=== PATIENT | female | born 1940 | race Caucasian/White ===

== ENCOUNTER 2023-11-14 06:26 | Inpatient (IN) | payer MEDICARE, SELFPAY ==
[2023-11-14] VITALS (19 sets, daily range): BP systolic 75–155; BP diastolic 50–98; PULSE 73; O2SAT 99; BMI 30.2; BMI 29.2
[2023-11-14 02:14] LABS: % Basophils 0.5 % (0-2); % Eosinophils 2.1 % (0-6); % Immature Granulocytes 0.4 % (0-0.5); % Lymphocytes 8.1 % (20.5-51.1); % Monocytes 10.2 % (1.7-9.3); % Neutrophils 78.7 % (42.2-75.2); Absolute Basophils 0.1 10^3/uL (0-0.2); Absolute Eosinophils 0.2 10^3/uL (0-0.7); Absolute Lymphocytes 0.8 10^3/uL (1.2-3.4); Absolute Neutrophils 7.8 10^3/uL (1.4-6.5); Hematocrit 36.2 % (37.0-47.0); Hemoglobin 11.5 g/dL (12.0-16.0); Mean Corp Hgb Conc. 31.8 g/dL (33.0-37.0); Mean Corpuscular Hgb 31.6 pg (27.0-31.0); Mean Corpuscular Volume 99.5 fL (81.0-99.0); Mean Platelet Volume 9.6 fL (7.4-10.4); Nucleated Red Blood Cells % 0 %; Platelet Count 274 10^3/uL (130-400); Red Blood Cell Count 3.64 10^6/uL (4.20-5.40); Red Cell Dist. Width 15.9 % (11.5-14.5)
--- NOTE | 2023-11-14 02:19 | ED.GENMED ---
History of Present Illness
<JULIANO Sarmiento - Last Filed: 11/14/23 05:08>
General
Chief Complaint: Blood Pressure Problem
Source: patient and spouse
Exam Limitations: none
Time Seen by Provider: 11/14/23 01:43
Nursing documentation reviewed up to this point in time: agreed with
Travel History
Have you had any contact with someone who has COVID-19?: No
Do you have any symptoms of coronavirus? Fever > 100 degrees, chills, cough, shortness of breath, sore throat, loss of taste or smell, muscle aches, or headache?: Yes
Symptoms:: cough,sob
History of Present Illness
History of Present Illness:
83 y/o F presents to ED via EMS from [facility] after elevated BP. Patient BP was 205/110 and patient was given extra dose of Lasix/lisinopril around 2300. Currently BP is at 156/90. Patient is also reporting cough for 3 days. She reports the
cough is worse today and is feeling more SOB. She is also reporting congestion, postnasal drip and sore throat. She also reports 1 loose stool yesterday. Patient has been having having frequency, urgency, and incontinence for past 2 weeks. She
denies NVD, dysuria, abdominal pain, CP, palpitations, fever, chills, body aches, LOC, dizziness or blurry vision. Patient recently had parital R hip surgery 1 month ago after fall. She reports she is doing better but has been staying at [facility] since surgery for daily monitoring. Patient does report last week she was given Vit K for increased INR. She also has bilateral leg swelling for a few months. She reports recently they have been more swollen than normal.
Past History
<JULIANO Sarmiento - Last Filed: 11/14/23 05:08>
Past History
ED Past Medical History: Arrthythmia (Atrial fibrillation), CVA, HTN and Hypercholesterolemia
ED Past Surgical History: Appendectomy, Cholecystectomy and Gynecological (RAFA/BSO)
Social History
Tobacco: Non-smoker
Alcohol: None
Drug: None
Personal:
Living: with family
Family History
Family History: Hypertension
Review of Systems
<JULINAO Sarmiento - Last Filed: 11/14/23 05:08>
Review of Systems
Allergies reviewed?: Yes
All Other Systems: ROS reviewed and negative except as documented in HPI and ROS
Constitutional: Reports no symptoms
EENT: Reports other (congestion)
Respiratory: Reports cough and trouble breathing
Cardiac: Reports other (edema)
ABD/GI: Reports no symptoms
: Reports frequency, incontinence and urgency
Musculoskeletal: Reports no symptoms
Skin: Reports no symptoms
Neurological: Reports no symptoms
Endocrine: Reports no symptoms
Hematologic/Lymphatic: Reports no symptoms
Psychiatric: Reports no symptoms
Phy Exam
<Redd Springer [facility] - Last Filed: 11/14/23 05:08>
General Physical Exam
General Presentation: well appearing and no apparent distress
General age: appears stated age
General Skin: warm and dry
General Habitus: normal
General Mental: alert
General Hydration: appears well hydrated
ENT Exam
ENT Exam: EOMI, TM's normal, pharynx normal and neck supple
Eye Exam
Eye Exam: PERRL, EOMI and conjunctiva normal
Cardiovascular Exam
Cardiovascular Exam: no murmur and irregularly irregular
Pulmonary Exam
Pulmonary Exam: lungs clear, no respiratory distress, no rales, no crackles and no rhonchi
Gastrointestinal Exam
Gastrointestinal Exam: normal bowel sounds, non tender, soft and non distended
Neurological Exam
Neurological Exam: alert and oriented x3
Musculoskeletal Exam
Musculoskeletal Exam: full ROM
Skin Exam
Skin Exam: warm/dry and other (BL lower legs with edema, erythema and ulcerations )
Psychiatric Exam
Psychiatric Exam: normal mood/affect
<Venkat Delgado DO - Last Filed: 11/14/23 05:45>
Heart Failure Risk
Heart Failure Risk Score: Yes
History of Stroke or TIA: Yes
History of intubation for respiratory distress: No
Heart rate on ED arrival >/= 110: No
SaO2 <90% on arrival on room air: Yes
HR >/=110 during 3min walk test (or too ill to perform test): Yes
ECG has acute ischemic changes: No
Urea >/=12mmol/L (BUN 33.6mg/dL): No
Serum CO2>/=35mmol/L: No
Troponin I or T elevated to OR Level (0.4mg/dL): No
NT-proBNP >/=5,000ng/L (5,000pg/ml): No
HF Risk Score: 4
Admission Status: HIGH RISK 26.1% Consider SNF treatment or admission to hospital
Course
<ST GuillerminaPA - Last Filed: 11/14/23 05:08>
Orders/Labs/Results
Orders:
Orders
11/14/23 01:49
Electrocardiogram (*1) Urgent
Reason for Study: Hypertension, Benign
EKG- Treatment ONCE
CXR2 [CR Chest - 2 Views ] Urgent
Comment:
Reason For Exam: cough
11/14/23 01:59
CMP [Comprehensive Metabolic Panel] Urgent
COVID-19 Antigen Urgent
Source: Nasal Swab
Complete Blood Count/With Diff Urgent
NT-proBNP Urgent
Comment: ADD ON
Troponin I Urgent
INF RAPID [Influenza A+B Rapid Molecular] Urgent
EDGARDO Source: Nasal Swab
Specimen Description:
11/14/23 02:18
PT/INR [Prothrombin Time] Urgent
11/14/23 03:40
Add On- LAB Urgent
Tests Added?: pro bnp
11/14/23 04:17
Guaifenesin/Dextromethorphan [Robitussin Dm] 10 ml .ROUTE .STK-MED ONE
11/14/23 04:26
Guaifenesin/Dextromethorphan [Robitussin Dm] 10 ml PO NOW STA
11/14/23 04:30
Troponin I Urgent
11/14/23 04:41
Furosemide [Lasix] 40 mg IV NOW STA
Abnormal Lab Results
11/14/23 11/14/23 11/14/23
01:59 02:18 04:30
RBC 3.64 L 10^6/uL
(4.20-5.40)
Hgb 11.5 L g/dL
(12.0-16.0)
Hct 36.2 L %
(37.0-47.0)
MCV 99.5 H fL
(81.0-99.0)
MCH 31.6 H pg
(27.0-31.0)
MCHC 31.8 L g/dL
(33.0-37.0)
RDW 15.9 H %
(11.5-14.5)
Absolute Neuts (auto) 7.8 H 10^3/uL
(1.4-6.5)
Absolute Lymphs (auto) 0.8 L 10^3/uL
(1.2-3.4)
Absolute Monos (auto) 1.0 H 10^3/uL
(0.1-0.6)
Neutrophils % 78.7 H %
(42.2-75.2)
Lymphocytes % 8.1 L %
(20.5-51.1)
Monocytes % 10.2 H %
(1.7-9.3)
PT 41.2 H Sec
(11.4-14.6)
Glucose 154 H mg/dl
(70-99)
Total Bilirubin 1.6 H mg/dl
(0.2-1.3)
AST 93 H U/L
(14-36)
ALT 61 H U/L
(0-35)
Alkaline Phosphatase 146 H U/L
(38-126)
Troponin I 0.391 H* D ng/ml
Total Protein 5.9 L g/dl
(6.3-8.2)
Albumin 3.3 L g/dl
(3.5-5.0)
11/14/23 01:59
11/14/23 01:59
Vital Signs
Initial and Last Documented VS:
Initial Vital Signs
Temp Pulse Resp BP Pulse Ox
98.6 F 85 30 155/98 89
11/14/23 01:46 11/14/23 01:46 11/14/23 01:46 11/14/23 01:46 11/14/23 01:46
Last Documented Vital Signs
Temp Pulse Resp BP Pulse Ox
98.6 F 90 17 139/81 91
11/14/23 01:46 11/14/23 04:46 11/14/23 04:45 11/14/23 04:46 11/14/23 04:45
<Venkat Delgado, DO - Last Filed: 11/14/23 05:45>
Orders/Labs/Results
Orders:
Orders
11/14/23 01:49
Electrocardiogram (*1) Urgent
Reason for Study: Hypertension, Benign
EKG- Treatment ONCE
CXR2 [CR Chest - 2 Views ] Urgent
Comment:
Reason For Exam: cough
11/14/23 01:59
CMP [Comprehensive Metabolic Panel] Urgent
COVID-19 Antigen Urgent
Source: Nasal Swab
Complete Blood Count/With Diff Urgent
NT-proBNP Urgent
Comment: ADD ON
Troponin I Urgent
INF RAPID [Influenza A+B Rapid Molecular] Urgent
EDGARDO Source: Nasal Swab
Specimen Description:
11/14/23 02:18
PT/INR [Prothrombin Time] Urgent
11/14/23 03:40
Add On- LAB Urgent
Tests Added?: pro bnp
11/14/23 04:17
Guaifenesin/Dextromethorphan [Robitussin Dm] 10 ml .ROUTE .STK-MED ONE
11/14/23 04:26
Guaifenesin/Dextromethorphan [Robitussin Dm] 10 ml PO NOW STA
11/14/23 04:30
Troponin I Urgent
11/14/23 04:41
Furosemide [Lasix] 40 mg IV NOW STA
Abnormal Lab Results
11/14/23 11/14/23 11/14/23
01:59 02:18 04:30
RBC 3.64 L 10^6/uL
(4.20-5.40)
Hgb 11.5 L g/dL
(12.0-16.0)
Hct 36.2 L %
(37.0-47.0)
MCV 99.5 H fL
(81.0-99.0)
MCH 31.6 H pg
(27.0-31.0)
MCHC 31.8 L g/dL
(33.0-37.0)
RDW 15.9 H %
(11.5-14.5)
Absolute Neuts (auto) 7.8 H 10^3/uL
(1.4-6.5)
Absolute Lymphs (auto) 0.8 L 10^3/uL
(1.2-3.4)
Absolute Monos (auto) 1.0 H 10^3/uL
(0.1-0.6)
Neutrophils % 78.7 H %
(42.2-75.2)
Lymphocytes % 8.1 L %
(20.5-51.1)
Monocytes % 10.2 H %
(1.7-9.3)
PT 41.2 H Sec
(11.4-14.6)
Glucose 154 H mg/dl
(70-99)
Total Bilirubin 1.6 H mg/dl
(0.2-1.3)
AST 93 H U/L
(14-36)
ALT 61 H U/L
(0-35)
Alkaline Phosphatase 146 H U/L
(38-126)
Troponin I 0.391 H* D ng/ml
Total Protein 5.9 L g/dl
(6.3-8.2)
Albumin 3.3 L g/dl
(3.5-5.0)
11/14/23 01:59
11/14/23 01:59
Vital Signs
Initial and Last Documented VS:
Initial Vital Signs
Temp Pulse Resp BP Pulse Ox
98.6 F 85 30 155/98 89
11/14/23 01:46 11/14/23 01:46 11/14/23 01:46 11/14/23 01:46 11/14/23 01:46
Last Documented Vital Signs
Temp Pulse Resp BP Pulse Ox
98.6 F 90 17 139/81 91
11/14/23 01:46 11/14/23 04:46 11/14/23 04:45 11/14/23 04:46 11/14/23 04:45
<JULIANO Sarmiento - Last Filed: 11/14/23 05:08>
MDM/Problems Addressed
Differential Diagnosis Includes:
COVID
Flu
Viral
Elevated BP
<JULIANO Sarmiento - Last Filed: 11/14/23 05:08>
*Critical Care Note
Total Time (30-74mins, 75-104mins- exclusive of procedures): Not Applicable
<Venkat Delgado DO - Last Filed: 11/14/23 05:45>
Update Note
Update Note:
11/14/2023 0544 AM: Troponin sonido considerably. Patient is in absolutely no chest pain. She is on Coumadin and her INR is supratherapeutic.
ED Attending Note
<JULIANO Sarmiento - Last Filed: 11/14/23 05:08>
-
Portions of this chart may have been created with voice recognition software.� Occasional wrong word or��sound alike� substitutions may have occurred due to the inherent limitations of voice recognition software.
<Venkat Delgado DO - Last Filed: 11/14/23 05:45>
ED Attending Note
Patient seen and examined by attending physician: Yes
I performed the substantive portion of visit, reviewed & personally made and approve the management plan that is documented in note by myself or CONNIE.: Yes
ED Attending Note:
Pleasant 83-year-old female who is temporarily residing at [facility] while recovering from hip replacement surgery, presents with hypertension. Patient did get a dose of Lasix and lisinopril at 11 PM. Patient is in chronic atrial
fibrillation and does take Coumadin. She states that before her hip replacement surgery she did need a dose of vitamin K to reverse some of the anticoagulation. Patient has been having a cough which began few days ago. She does report some
shortness of breath. Denies fever or chills. Patient was seen in conjunction with the PA student. I have reviewed and agree with the history and treatment plan presented. On my independent physical exam, patient is awake, alert, and oriented x3,
minimal acute distress. She does exhibit a nonproductive cough. Lungs are clear bilaterally. Abdomen is soft and nontender normal bowel sounds. Moves all 4 extremities.
Discharge Plan
Departure
Patient Disposition: Admit
Date of Disposition: 11/14/23
Time of Disposition: 05:08
Admit to: Telemetry
Presentation/result/management discussed w/ accepting MD/DO: Hospitalist
Condition: Fair
Discharge Problem:
High blood pressure, CHF (congestive heart failure)
Prescriptions:
No Action
carvedilol 6.25 MG tablet
6.25 mg PO BID@0800,1700
acetaminophen [Tylenol Extra Strength] 500 MG tablet
500 mg PO HSPRN PRN (Reason: pain/sleep)
cholecalciferol (vitamin D3) 1,000 UNITS tablet
1,000 units PO DAILY
multivitamin with folic acid [Tab-A-Mick] 1 TABLET tablet
1 tab PO DAILY
atorvastatin 80 MG tablet
80 mg PO DAILY@1700
warfarin 3 mg Tablet
3 mg PO SUTUFR
Hold Instructions: Resume on 10/25/23. RESTART ONCE INR IN 2-3 RANGE
furosemide 20 mg tablet
20 mg PO DAILY
lisinopril 2.5 mg tablet
2.5 mg PO DAILY
Probiotic
250 mg PO DAILY
amiodarone [Pacerone] 200 mg Tablet
200 mg PO BID Qty: 60 0RF
acetaminophen [Pain Relief ES (acetaminophen)] 500 mg Tablet
1,000 mg PO TID Qty: 30 0RF
oxycodone 5 mg Tablet
5 mg PO Q4HPRN PRN (Reason: mod sev pain) Qty: 14 0RF
dextromethorphan-guaifenesin [Robitussin-DM] 10-100 mg/5 mL Syrup
10 ml PO Q4H PRN (Reason: cough)
warfarin 2 mg Tablet
2 mg PO SUTUTHSA
warfarin 1 mg Tablet
1 mg PO DAILY
Referrals:
Mike Sparks MD [Family Provider] -
Interventions
Interventions:
*Risk Screen - Suicide Last Done: 11/14/23 01:50
*General Assessment Last Done: 11/14/23 01:54
*Neglect/Abuse Screening Last Done: 11/14/23 01:54
ED- Fall Risk Assessment Last Done: 11/14/23 01:50
*ED COVID-19 Vaccine History Last Done: 11/14/23 01:54
ED- Cardiac Assessment Last Done: 11/14/23 01:50
ED- Neurological Assessment Last Done: 11/14/23 01:50
ED- Pulmonary Assessment Last Done: 11/14/23 01:50
[2023-11-14 02:25] LABS: ALT (SGPT) 61 U/L (0-35); AST (SGOT) 93 U/L (14-36); Albumin 3.3 g/dl (3.5-5.0); Alkaline Phosphatase 146 U/L (38-126); Blood Urea Nitrogen 13 mg/dl (7-17); Calcium 8.6 mg/dl (8.4-10.2); Carbon Dioxide 25 mmol/L (22-30); Chloride 102 mmol/L (98-107); Estimated Creatinine Clearance 78 ml/min; Glucose 154 mg/dl (70-99); Potassium 3.7 mmol/L (3.5-5.1); Sodium 135 mmol/L (135-145); Total Bilirubin 1.6 mg/dl (0.2-1.3); Total Protein 5.9 g/dl (6.3-8.2); eGFR > 60.00
[2023-11-14 02:32] LABS: COVID-19 Antigen Negative (Negative)
[2023-11-14 02:37] LABS: Troponin I 0.019 ng/ml
[2023-11-14 02:48] LABS: INR 4.28; PT 41.2 Sec (11.4-14.6)
[2023-11-14] MEDS: ROBITUSSIN DM 10 ML PO ×3 (04:26→16:36)
[2023-11-14 04:27] LABS: NT-proBNP 2280 pg/ml
[2023-11-14] MEDS: LASIX 40 MG IV ×2 (04:46→12:07)
--- NOTE | 2023-11-14 05:32 | HPS.HSE ---
Family Physician
-
Family Physician: Mike Sparks
Chief Complaint
-
SOB, pedal edema
History of Present Illness
HPI: 83 y/o F PMH Permanent Atrial Fibrillation, prior CVA, hypertension, recent R hip partial replacement 1 month ago after fall; presented from [facility] for elevated BP (205/110). She was given extra dose of Lasix/lisinopril around 2300
- currently BP stable in the ED.
Patient c/o SOB, mild cough, weight gain and significant BL LE edema.
She denies to CP, palpitations, abd pain, fever, chills etc.
She is complaining of increased urinary frequency likely due to Lasix given.
Medical History
Past Medical History
Past Medical History: Reports Other
Additional Past Medical History:
Permanent Atrial Fibrillation
Hypertension
Pulmonary Hypertension
ASCVD / PAD
GERD
Past Surgical History: Reports Other
Additional Past Surgical History:
Appendectomy
IAT (R MCA)
TVH / BSO
Pseudoaneurysm Repair (R groin)
Cholecystectomy
R hip hemiarthroplasty
Social History
Tobacco: Non-smoker
Alcohol: Occasional (Rare)
Drug: None
Family History
Family History: Not pertinent
Allergies / Home Medications
Allergies
Allergy/AdvReac Type Severity Reaction Status Date / Time
latex Allergy Itching Verified 10/12/23 19:12
Sulfa (Sulfonamide Allergy Unknown Verified 10/12/23 19:12
Antibiotics)
pollens, molds Allergy nasal Uncoded 10/12/23 19:12
sympotms
Home Medications
acetaminophen 500 mg tablet (Tylenol Extra Strength) 500 mg PO HSPRN PRN pain/sleep 10/18/17
atorvastatin 80 mg tablet 80 mg PO DAILY@1700 10/18/17
carvedilol 6.25 mg tablet 6.25 mg PO BID@0800,1700 10/18/17
cholecalciferol (vitamin D3) 25 mcg (1,000 unit) tablet 1,000 units PO DAILY 10/18/17
multivitamin with folic acid 400 mcg tablet (Tab-A-Mick) 1 tab PO DAILY 10/18/17
Probiotic 250 mg PO DAILY 10/13/23
furosemide 20 mg tablet 20 mg PO DAILY 10/13/23
lisinopril 2.5 mg tablet 2.5 mg PO DAILY 10/13/23
warfarin 3 mg tablet 3 mg PO SUTUFR 10/13/23
acetaminophen 500 mg tablet (Pain Relief Extra Strength (acetaminophen)) 1,000 mg PO TID #30 tabs 10/24/23
amiodarone 200 mg tablet (Pacerone) 200 mg PO BID #60 tabs 10/24/23
oxycodone 5 mg tablet 5 mg PO Q4HPRN PRN mod sev pain #14 tabs 10/24/23
dextromethorphan-guaifenesin 10 mg-100 mg/5 mL oral syrup 10 ml PO Q4H PRN cough 11/14/23
warfarin 1 mg tablet 1 mg PO DAILY 11/14/23
warfarin 2 mg tablet 2 mg PO SUTUTHSA 11/14/23
Allergy/Medication List:
Patient does not have current list of medications / doses with her.
If medication reconciliation has not been performed, why?: Other (Patient does not know.)
Review of Systems
-
Respiratory: Reports See HPI and Trouble Breathing
Cardiac: Reports Other (pedal edema )
Physical Exam
Vital Signs
Vital Signs
Temp Pulse Resp BP Pulse Ox
37.0 C 90 17 139/81 91
11/14/23 01:46 11/14/23 04:46 11/14/23 04:45 11/14/23 04:46 11/14/23 04:45
Physical Exam
General: Well Developed, Well Nourished and Comfortable
HEENT: NormoCephalic, Moist mucous membranes, Atraumatic and Oxygen (2L NC)
Respiratory: Clear and Non Labored Respirations; No Wheezes, Crackles or Accessory Resp Muscle Use
Cardiac: S1/S2 and Irregular Rhythm; No Murmur or Rub
GI: Soft, Non Tender, Non Distended and Normal Bowel Sounds; No Organomegaly
Rectal: Deferred by Provider
Musculoskeletal: No Clubbing, No Cyanosis, Edema, Left Lower Extremity and Edema, Right Lower Extremity
Skin: No Rash
Neuro: Awake and Alert
Psych: Calm and Intact Judgment/Insight
Laboratory Results
-
11/14/23 01:59
11/14/23 01:59
Laboratory Results
PT 41.2 Sec (11.4-14.6) H 11/14/23 02:18
INR 4.28 11/14/23 02:18
Total Bilirubin 1.6 mg/dl (0.2-1.3) H 11/14/23 01:59
AST 93 U/L (14-36) H 11/14/23 01:59
ALT 61 U/L (0-35) H 11/14/23 01:59
Alkaline Phosphatase 146 U/L (38-126) H 11/14/23 01:59
Troponin I 0.019 ng/ml 11/14/23 01:59
Data Reviewed
-
Lab Data: Labs Reviewed by me
Impression/Plan
-
HPI: 83 y/o F PMH Permanent Atrial Fibrillation, prior CVA, hypertension, recent R hip partial replacement 1 month ago after fall; presented from [facility] for elevated BP (205/110). She was given extra dose of Lasix/lisinopril around 2300
- currently BP stable in the ED.
Patient c/o SOB, mild cough, weight gain and significant BL LE edema.
She denies to CP, palpitations, abd pain, fever, chills etc.
She is complaining of increased urinary frequency likely due to Lasix given.
A/P:
# SOB likely due to acute on chronic CHF unclear type
# Acute hypoxic respiratory insufficiency
Patient placed on 2 L nasal cannula, wean as tolerated, patient not on home O2
CXR with possible increased congestion, follow formal report
proBNP 2280
Weight 82 kg from baseline 79 kg
Continue Lasix IV 40 mg daily, monitor daily weight
Check echocardiogram
Cardiology consult
# Troponin elevation, likely non-MA and related to acute CHF
Continue to trend troponin
Patient is chest pain-free
EKG noted A-fib rate controlled
# Elevated LFT likely due to hepatic congestion
Continue to follow LFT
Hold prior to admission statin for now
# Permanent Atrial Fibrillation
# History of Embolic CVA
# Coumadin Coagulopathy
INR 4.28, hold Coumadin for now
Check daily INR
Patient follows up with Dr. Laura at [facility] Card[facility].
# Recent Right Hip Fracture s/p right hip hemiarthroplasty on October 17, 2023
Continue PT OT eval
# Essential Hypertension
continue coreg with hold parameter
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
Code Status: Full
[2023-11-14 05:39] LABS: Troponin I 0.391 ng/ml
--- NOTE | 2023-11-14 09:05 | W.PN.HOSP.TC ---
Today's Communication/Plan
-
see bold
Assessment / Plan
Assessment / Plan
HPI: 83 y/o F PMH Permanent Atrial Fibrillation, prior CVA, hypertension, recent R hip partial replacement 1 month ago after fall; presented from [facility] for elevated BP (205/110). She was given extra dose of Lasix/lisinopril around 2300
- currently BP stable in the ED. Patient c/o SOB, mild cough, weight gain and significant BL LE edema. She denies to CP, palpitations, abd pain, fever, chills etc.
She is complaining of increased urinary frequency likely due to Lasix given.
#Acute heart failure with preserved ejection fraction
Echocardiogram reviewed, cardiology following
Continue Lasix 40 mg IV twice daily, trend creatinine, trend daily weights
#Moderate mitral regurgitation
#Severe tricuspid regurgitation
#Pulmonary hypertension
# Hypertensive urgency
Initial blood pressure was 205/110, current blood pressure is 140/98
Cardiology increased Coreg to 12.5 mg twice a day
# Troponin elevation, likely non-LA and related to acute CHF
Patient is chest pain-free
EKG noted A-fib rate controlled
# Elevated LFT likely due to hepatic congestion
Continue to follow LFT
Hold prior to admission statin for now
# Permanent Atrial Fibrillation
# History of Embolic CVA
# Coumadin Coagulopathy
INR 4.28, hold Coumadin for now
Check daily INR
Patient follows up with Dr. Laura at [facility] Cardiology.
# Recent Right Hip Fracture s/p right hip hemiarthroplasty on October 17, 2023
Weightbearing as tolerated to right lower extremity
Continue PT/OT eval, she is from [facility]
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
Code Status: Full
Physical Exam
General: No acute distress
HEENT: Normocephalic, Atraumatic, EOMI, MMM
Respiratory: Clear to Auscultation bilaterally
Cardiac: Normal S1/S2, irregularly irregular
GI: Soft, Nontender, Nondistended, Normal Bowel Sounds
Extremities: No Clubbing, Cyanosis
Bilateral lower extremity edema noted
Musculoskeletal: Right knee with resolving ecchymosis, right hip incision healing
Anticipated Discharge: > 48 hours
Subjective/Interval History
-
Date of Service: November 14, 2023
Patient reports breathing and cough improved. Denies chest pain, denies vomiting.
Objective Data
-
Labs:
Laboratory Results
11/14/23 11/14/23
01:59 02:18
WBC 10.0
Hgb 11.5 L
Hct 36.2 L
Plt Count 274
PT 41.2 H
INR 4.28
Sodium 135
Potassium 3.7
Chloride 102
Carbon Dioxide 25
BUN 13
Creatinine 0.6
Glucose 154 H
Calcium 8.6
Total Bilirubin 1.6 H
AST 93 H
ALT 61 H
Alkaline Phosphatase 146 H
Vital Signs:
Vital Signs
Temp Pulse Resp BP Pulse Ox
98.3 F 82 18 136/73 99
11/14/23 07:56 11/14/23 07:56 11/14/23 07:56 11/14/23 07:00 11/14/23 07:56
I&O
11/13/23 11/14/23 11/15/23
06:59 06:59 06:59
Output Total 950 / 950
Balance -950 / -950
[2023-11-14] MEDS: COREG 6.25 MG PO ×2 (09:24→12:06)
[2023-11-14] MEDS: ZESTRIL 2.5 MG PO (09:24)
[2023-11-14] MEDS: PACERONE 200 MG PO (09:24)
--- NOTE | 2023-11-14 10:34 | CON.CAR ---
Addendum entered and electronically signed by Douglas Partida MD 11/14/23 13:04:
I saw and examined the patient.
The Site Controller's note was reviewed and I agree with the note.
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
concerning for hypertensive urgency/emergency
Blood pressure was improved at the time of my exam, plan to increase Coreg dose to 12.5mg BID for tighter BP control
Ongoing cough, but breathing is improved with diuresis, cont IV lasix BID
Check TTE
Consider addition of SGLT2
Troponin uptrending, last 1.0
Not reporting chest pain
Non-specific ST/T wave changes seen on ECG
Would trend to peak
Check TTE to assess for SWMA
AFib is permanent - stop amiodarone
Rate control with Coreg
Warfarin for cardioembolic ppx
Original Note:
Consultation
Consultation Request
Date/Time Consultation Requested: 11/14/23 at 0630
Date/Time Consultation Performed: 11/14/23 at 1030
Requesting Provider: Dr. Bueno
Performing Provider: Dr. Partida
Reason for Consultation: Acute HF
Medical History
-
History of Present Illness:
Patient came to [facility] early this morning with HTN and SOB, patient now admitted with acute HF and cardiology has been consulted. Patient follows with Dr. Laura at [facility] and was seen 08/10/23 and no medication changes at
that time. Patient then had a mechanical fall at home and presented to [facility] with a right hip fracture on 10/17/23. Patient was admitted and bridged with Heparin while her INR drifted down. Patient's INR was not reversed due to h/o CVA with FFP
reversal in the setting of appendectomy in 2017. 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 Since then patient has been bridged with Lovenox. Following right hip ORIF the patient was bridged back to
therapeutic INR and then sent to the [facility] for rehab. Patient reports that she is making good progress in rehab, but started with increasing SOB and cough and [facility] nursing noted increasing HTN with BPs of 205/110 and then in the
ER 156/90. Patient was given Lasix 40 mg IV x1 in the ER and reports improved SOB, but ongoing cough. BP has improved and patient was given extra dose of lisinopril 2.5 mg and Lasix 20 mg at [facility] last night.
PMH:
Recent admission for fall and right hip fracture 10/12/23 until 10/24/23
s/p ORIF right hip fracture 10/12/23
Right knee hematoma due to fall 10/12/23
Permanent Afib
Chronic warfarin OAC managed by [facility]
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
h/o hypertension
Hyperlipidemia
Past Medical History
Past Medical History: Other (in HPI)
Past Surgical History: Appendectomy, Orthopedic and Other (right MCA CVA with IAT at 08/2017)
Social History
Tobacco: Non-Smoker
Alcohol: None
Drug: None
Personal:
Living: Long-Term (currently in rehab at [facility] previously at home with )
Family History
Family History: Reviewed & Not Pertinent
Allergies / Home Medications
Allergy/AdvReac Type Severity Reaction Status Date / Time
latex Allergy Itching Verified 10/12/23 19:12
Sulfa (Sulfonamide Allergy Unknown Verified 10/12/23 19:12
Antibiotics)
pollens, molds Allergy nasal Uncoded 10/12/23 19:12
sympotms
Medication Instructions Recorded Confirmed Type
acetaminophen 500 mg tablet 500 mg PO HSPRN PRN pain/sleep 10/18/17 11/14/23 History
(Tylenol Extra Strength)
atorvastatin 80 mg tablet 80 mg PO DAILY@1700 10/18/17 11/14/23 History
carvedilol 6.25 mg tablet 6.25 mg PO BID@0800,1700 10/18/17 11/14/23 History
cholecalciferol (vitamin D3) 25 1,000 units PO DAILY 10/18/17 11/14/23 History
mcg (1,000 unit) tablet
multivitamin with folic acid 400 1 tab PO DAILY 10/18/17 11/14/23 History
mcg tablet (Tab-A-Mick)
Probiotic 250 mg PO DAILY 10/13/23 11/14/23 History
furosemide 20 mg tablet 20 mg PO DAILY 10/13/23 11/14/23 History
lisinopril 2.5 mg tablet 2.5 mg PO DAILY 10/13/23 11/14/23 History
warfarin 3 mg tablet 3 mg PO SUTUFR 10/13/23 11/14/23 History
acetaminophen 500 mg tablet (Pain 1,000 mg PO TID #30 tabs 10/24/23 11/14/23 Rx
Relief Extra Strength
(acetaminophen))
amiodarone 200 mg tablet (Pacerone) 200 mg PO BID #60 tabs 10/24/23 11/14/23 Rx
oxycodone 5 mg tablet 5 mg PO Q4HPRN PRN mod sev pain 10/24/23 11/14/23 Rx
#14 tabs
dextromethorphan-guaifenesin 10 10 ml PO Q4H PRN cough 11/14/23 11/14/23 History
mg-100 mg/5 mL oral syrup
warfarin 1 mg tablet 1 mg PO DAILY 11/14/23 11/14/23 History
warfarin 2 mg tablet 2 mg PO SUTUTHSA 11/14/23 11/14/23 History
Review of Systems
-
History Source: Patient
All other systems: Negative unless noted
Physical Exam
Vital Signs
Temp Pulse Resp BP Pulse Ox
98.3 F 82 18 136/73 99
11/14/23 07:56 11/14/23 07:56 11/14/23 07:56 11/14/23 07:00 11/14/23 07:56
GEN: No distress, AAOx3
HEENT: EOMI, MMM
LUNGS: CTA B/L, no wheezes or rales
CV: Irreg irreg, S1/S2, 1/6 syst LSB
ABD: soft, BS+, NT, ND
EXT: Right hip incision well healed without ecchymosis. Right knee with resolving ecchymosis. +1 B/L LE edema. No clubbing, cyanosis or lesions B/L
NEURO: Gross non-focal
SKIN: Warm, dry and pink. No rash
Lab Results
11/14/23 01:59
11/14/23 01:59
Troponin I 0.391 ng/ml H* D 11/14/23 04:30
Til-V-Gnsiofkvpnj Pept 2280 pg/ml 11/14/23 01:59
Impression / Plan
-
PCP: Dr. Sparks
Cardiology: Dr. Laura at [facility]
Impression:
Acute HFpEF
HTN emergency
Elevated Troponin
Recent admission for fall and right hip fracture 10/12/23 until 10/24/23
s/p ORIF right hip fracture 10/12/23
Right knee hematoma due to fall 10/12/23
Permanent Afib
Chronic warfarin OAC managed by [facility]
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
h/o hypertension
Hyperlipidemia
Echo 03/2023: [facility] study, EF 55-60%, mod MR, mod TR
Plan:
-Patient came to [facility] from [facility] rehab early this morning with HTN and SOB, patient now admitted with acute HF and cardiology has been consulted. Patient follows with Dr. Laura at [facility] and was seen 08/10/23 and no medication changes at
that time. Patient then had a mechanical fall at home and presented to [facility] with a right hip fracture on 10/17/23. Patient was admitted and bridged with Heparin while her INR drifted down. Patient's INR was not reversed due to h/o CVA with FFP
reversal in the setting of appendectomy in 2017. 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 Since then patient has been bridged with Lovenox. Following right hip ORIF the patient was bridged back to
therapeutic INR and then sent to the [facility] for rehab. Patient reports that she is making good progress in rehab, but started with increasing SOB and cough and [facility] nursing noted increasing HTN with BPs of 205/110 and then in the
ER 156/90. Patient was given Lasix 40 mg IV x1 in the ER and reports improved SOB, but ongoing cough. BP has improved and patient was given extra dose of lisinopril 2.5 mg and Lasix 20 mg at [facility] last night.
-ECG reviewed by me shows known permanent Afib and QTc 459 ms.
-Patient symptomatically improved with Lasix 40 mg IV this AM and will give another dose of Lasix 40 mg IV at 1200 today and then Lasix 40 mg IV daily. Patient was taking Lasix 20 mg PO daily prior to admission.
-EF was 55% by echo 03/2023 at [facility]. Recheck echo today.
-Patient with known permanent Afib. Last admission her HRs were difficult to control and hypotension precluded uptitration of Coreg at that time so amiodarone was added for HR control. BP now higher so will stop amiodarone and increase Coreg to 12.5
mg BID for HR and BP control.
-INR is supratherapeutic at 4.3 on 11/14/23. Hold warfarin tonight. Previously INRs managed by [facility] using a home monitor. INR goal is 2-3. Patient has not switched to NOAC in the past because warfarin is her preference.
-Patient with h/o CVA in the setting of FFP reversal and subtherapeutic INR after appendectomy in 2017. Patient will need to be bridged with heparin if INR is less than 2.
-Patient previously on digoxin for HR control, but this was stopped last admission.
-Initial Troponin 0.391 and then up to 1.01. No chest pain and ECG without acute ischemic change. Check echo and pending results will manage as a likely nonischemic myocardial injury Troponin elevation due to acute HF and HTN emergency.
--- NOTE | 2023-11-14 10:41 | CM ---
Chart reviewed. Patient is independent of ADLS, lives in a 3 STH, 1st floor set up, 1 [facility] and also has a ramp, before her hip replacement she was ambulating with a SPC but after her surgery she has been using a walker. Patient had a hip
replacement 1 month ago and was discharged to [facility] for Skilled Rehab. The patient does not have a bed hold. Patient and her family would like to return to [facility]. I spoke to Genie at [facility] and the referral was sent.
Plan is for the patient to be discharged to [facility] once medically stable. CM to follow
--- NOTE | 2023-11-14 13:00 | PTCARENOTE ---
Received pt from the ED via stretcher. VSS. Pt short of breath, RR 28. Meds as ordered.
[2023-11-14 17:01] LABS: Troponin I 0.866 ng/ml
[2023-11-14] MEDS: ATROVENT NEBULES 0.5 MG INH (17:36)
[2023-11-14] MEDS: COREG 12.5 MG PO (21:00)
[2023-11-14] MEDS: PHENERGAN WITH CODEINE SYRUP 5 ML PO (21:00)
[2023-11-14] MEDS: TYLENOL 650 MG PO (23:48)
[2023-11-15] VITALS (32 sets, daily range): BP systolic 70–160; BP diastolic 30–97; BMI 27.4
--- NOTE | 2023-11-15 00:21 | PTCARENOTE ---
Pt rec'd at beginning of shift awake,alert oriented. assisted oob passed small brown bm with lots of flatus noted. Pt assisted back to bed. new Pure wick placed. pt with freq mostly dry cough cough. Phenergan with codeine ordered and given. sat's on
2 lit 92-94%. Lungs diminished throughout. At Hs temp up to 101.1 orally, pt confused to surroundings thought she was at rehab center;wanted to get up oob disoriented to time. CHART WRITER called for orders. Tylenol order obtained and clean ua specimen
obtained and sent.
Pt occ coughing up sputum. Pt had 1 large croft sputum but was mixed with tissues. Will attempt to obtain clean specimen.
[2023-11-15 00:53] LABS: Urine Albumin Trace (Neg - Trace); Urine Bilirubin Negative (Negative); Urine Character Clear (Clear); Urine Glucose Negative (Negative); Urine Ketone Trace (Negative); Urine Leukocyte 1+ (Negative); Urine Nitrite Negative (Negative); Urine Occult Blood Trace (Negative); Urine Specific Gravity 1.025 (<1.030); Urine Urobilinogen Negative (Neg - 1+)
[2023-11-15 00:54] LABS: Urine Color Yellow
[2023-11-15 01:10] LABS: Urine Amorphous Seen; Urine Squamous Cell >30 /LPF (Few); Urine Urothelial Cell >30 /LPF (FEW)
[2023-11-15 01:11] LABS: Urine Bacteria Many (Negative); Urine White Cell 30-40 /HPF (0-5)
[2023-11-15 02:20] LABS: Hematocrit 31.5 % (37.0-47.0); Hemoglobin 10.3 g/dL (12.0-16.0); Mean Corp Hgb Conc. 32.7 g/dL (33.0-37.0); Mean Corpuscular Hgb 30.7 pg (27.0-31.0); Mean Corpuscular Volume 93.8 fL (81.0-99.0); Mean Platelet Volume 9.3 fL (7.4-10.4); Platelet Count 214 10^3/uL (130-400); Red Blood Cell Count 3.36 10^6/uL (4.20-5.40); Red Cell Dist. Width 15.9 % (11.5-14.5); White Blood Cell Count 11.9 10^3/uL (4.8-10.8)
[2023-11-15 02:34] LABS: ALT (SGPT) 53 U/L (0-35); AST (SGOT) 59 U/L (14-36); Albumin 3.3 g/dl (3.5-5.0); Alkaline Phosphatase 114 U/L (38-126); Blood Urea Nitrogen 17 mg/dl (7-17); Calcium 8.3 mg/dl (8.4-10.2); Carbon Dioxide 30 mmol/L (22-30); Chloride 101 mmol/L (98-107); Estimated Creatinine Clearance 66 ml/min; Glucose 111 mg/dl (70-99); Magnesium 1.9 mg/dl (1.6-2.3); Potassium 3.5 mmol/L (3.5-5.1); Sodium 135 mmol/L (135-145); Total Bilirubin 1.3 mg/dl (0.2-1.3); Total Protein 5.7 g/dl (6.3-8.2); eGFR > 60.00
[2023-11-15 02:35] LABS: INR 4.05; PT 39.4 Sec (11.4-14.6)
--- NOTE | 2023-11-15 02:35 | PTCARENOTE ---
Pt's temp rechecked down to 97.4. CXR completed in dept. ua and sputum specimens sent to lab results pending. Pt still with freq cough, thick croft secretions. afib in 80's on telemetry.
[2023-11-15] MEDS: PHENERGAN WITH CODEINE SYRUP 5 ML PO ×2 (06:24→22:11)
[2023-11-15] MEDS: LASIX 40 MG IV (06:48)
--- NOTE | 2023-11-15 06:51 | PTCARENOTE ---
Pt reports having slept well after getting cough medicine but awoken to sob, productive cough with croft and blood tinged secretions. Dyspneic at rest. sat on 2 lit 84%, o2 increased up to 6 lit at present with sat 88%. am Lasix given now
[2023-11-15] MEDS: ZESTRIL 2.5 MG PO (08:40)
[2023-11-15] MEDS: COREG 12.5 MG PO (08:40)
--- NOTE | 2023-11-15 08:59 | W.PN.HOSP.TC ---
Today's Communication/Plan
-
Start antibiotics for pneumonia, bronchodilators, midodrine as needed
Transfer to IMU
Assessment / Plan
Assessment / Plan
HPI: 83 y/o F PMH Permanent Atrial Fibrillation, prior CVA, hypertension, recent R hip partial replacement 1 month ago after fall; presented from [facility] for elevated BP (205/110). She was given extra dose of Lasix/lisinopril around 2300
- currently BP stable in the ED. Patient c/o SOB, mild cough, weight gain and significant BL LE edema. She denies to CP, palpitations, abd pain, fever, chills etc.
She is complaining of increased urinary frequency likely due to Lasix given.
#Acute hypoxic respiratory failure
#Sepsis
#Community-acquired pneumonia
Currently requiring 12 L of oxygen, wean as tolerated
Start Rocephin/doxycycline day 1, check sputum culture and Gram stain, urine Legionella and strep
Transfer to IMU
#Hypotension
Check lactic acid, hold Lasix, midodrine as needed
Low threshold for Levophed
#Acute heart failure with preserved ejection fraction
Echocardiogram reviewed, cardiology following
Hold Lasix secondary to hypotension, trend creatinine, trend daily weights
#Moderate mitral regurgitation
#Severe tricuspid regurgitation
#Pulmonary hypertension
# Hypertensive urgency, followed by hypotension
ER blood pressure was 205/110, blood pressure dipped to 79/57
Hold Coreg secondary to hypotension
# Troponin elevation, likely non-SC and related to acute CHF
Patient is chest pain-free
EKG noted A-fib rate controlled
# Elevated LFT likely due to hepatic congestion
Continue to follow LFT
Hold prior to admission statin for now
# Permanent Atrial Fibrillation
# History of Embolic CVA
# Coumadin Coagulopathy
INR 4.05, hold Coumadin for now
Check daily INR
Patient follows up with Dr. Laura at [facility].
# Recent Right Hip Fracture s/p right hip hemiarthroplasty on October 17, 2023
Weightbearing as tolerated to right lower extremity
Continue PT/OT evgiovanni, she is from [facility]
DVT Prophylaxis:�CAR ICER Coumadin on hold, daily INR
Code Status: Full
Updated at bedside 11/15
Total time spent to see the patient on the floor, examine the patient, review data and lab results, discuss treatment plan with patient, nursing staff around 55 minutes.
Physical Exam
General: Appears acutely ill, no acute distress
HEENT: Normocephalic, Atraumatic, EOMI, MMM
Respiratory: Clear to Auscultation bilaterally
Cardiac: Normal S1/S2, irregularly irregular
GI: Soft, Nontender, Nondistended, Normal Bowel Sounds
Extremities: No Clubbing, Cyanosis
Bilateral lower extremity edema noted
Musculoskeletal: Right knee with resolving ecchymosis, right hip incision healing
Anticipated Discharge: > 48 hours
Subjective/Interval History
-
Date of Service: November 15, 2023
Patient febrile at 11 PM yesterday, 101.1. Continues to be short of breath, with a productive cough.
Objective Data
-
Labs:
Laboratory Results
11/15/23
02:14
WBC 11.9 H
Hgb 10.3 L
Hct 31.5 L
Plt Count 214 D
PT 39.4 H
INR 4.05
Sodium 135
Potassium 3.5
Chloride 101
Carbon Dioxide 30
BUN 17
Creatinine 0.7
Glucose 111 H
Calcium 8.3 L
Total Bilirubin 1.3
AST 59 H
ALT 53 H
Alkaline Phosphatase 114
Vital Signs:
Vital Signs
Temp Pulse Resp BP Pulse Ox
98.6 F 80 20 120/97 100
11/15/23 08:12 11/15/23 08:40 02/15/24 08:12 11/15/23 08:40 11/15/23 08:12
I&O
11/14/23 11/15/23 11/16/23
06:59 06:59 06:59
Intake Total 720 / 720
Output Total 2300 / 2300
Balance -1580 / -1580
--- NOTE | 2023-11-15 09:21 | WOUNDNOTE ---
SACRAL/R BUTTOCKS (BLANCHABLE RED)
--- NOTE | 2023-11-15 09:21 | WOUNDNOTE ---
SACRAL/R BUTTOCKS (BLANCHABLE RED)
--- NOTE | 2023-11-15 09:42 | WOUNDNOTE ---
[facility] RN note: Patient admitted with CHF. Patient admitted from [facility] rehab.
See H&P for complete history.
PMH: a fib (Coumadin), CVA, HTN, 10/17/23 R hip hemiarthroplasty by Dr. Philip r/t fall along with R prepatellar bursitis, R knee blister (hematoma?). Pulmonary HTN, ASCVD/PAD, appendectomy, R groin pseudoaneurysm, cholecystectomy.
Wound Location and type/assessment: Patient admitted with what looks like a resolving R knee hematoma, scant serous drainage from healing superficial broken blister. R knee swelling and redness much less than before as per patient and . +LE
edema. Feet warm. Heels blanchable red. R sacral/buttocks blanchable red.
Appetite: decreased lately.
Pressure redistribution devices in place: [employer] Accumax. Patient needs help turning.
Plan: R knee dressing changed. Patient stated current care has been a 'yellow colored' dressing with a cover dressing. Xeroform gauze and silicone border foam applied. Silicone border foam applied to R sacral/buttocks. Patient turned and Waffle
air overlay applied with help from SAQIB Padilla. R heel off bed with pillow. L heel off bed with air chair cushion. There is what looks like a high density foam type chair cushion on recliner chair.
Will confirm orders with hospitalist and discussed with SAQIB Padilla.
Care plan to be updated and will follow as needed. Patient had appointment with orthopedic surgeon this week which she was unable to make. She asked if orthopedic surgeon can see her here. Suggested she discuss with the hospitalist. Patient to
follow up with orthopedics.
--- NOTE | 2023-11-15 11:26 | CM ---
Chart reviewed. Patient is independent of ADLS, lives in a 3 STH, 1st floor set up, 1 [facility] and also has a ramp, before her hip replacement she was ambulating with a SPC but after her surgery she has been using a walker. Patient had a hip
replacement 1 month ago and was discharged to [facility] for Skilled Rehab. The patient does not have a bed hold. Patient and her family would like to return to [facility]. I spoke to Elvia at [facility] and patient is accepted
based on bed availability. Plan is for the patient to go SNF once medically stable for discharge. CM to follow
[2023-11-15] MEDS: DUONEB 3 ML INH ×3 (11:36→20:47)
--- NOTE | 2023-11-15 12:31 | W.PN.CARDCBS ---
Addendum entered and electronically signed by Elena Hicks MD 11/15/23 13:19:
I saw and examined the patient.
The Foreign Student Adviser's note was reviewed and I agree with the note.
Comment: Still volume overloaded with heart failure with preserved ejection fraction. Examined today still with edema, crackles and shortness of breath. Continue diuresis.
-Follow input/output and daily weights (weight is not available today and I have asked for nursing to place in system)
-Follow clinically
-Continue oxygen
Chest x-ray possibly consistent with pneumonia. Flu and COVID-negative on admission. Fever noted. White count noted.
-Defer treatment to primary service. Avoid QT prolonging medication given increased QT interval noted on EKG.
-Recheck EKG in the morning.
Atrial fibrillation permanent with history of CVA
-Continue to follow INR which has been elevated
Original Note:
Today's Communication / Plan
-
Ongoing diuresis
Echo stable
Antibiotics for PNA
Impression / Plan
-
PCP: Dr. Sparks
Cardiology: Dr. Laura at [facility]
Impression:
Acute HFpEF
HTN emergency
Elevated Troponin
Recent admission for fall and right hip fracture 10/12/23 until 10/24/23
s/p ORIF right hip fracture 10/12/23
Right knee hematoma due to fall 10/12/23
Permanent Afib
Chronic warfarin OAC managed by [facility]
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
h/o hypertension
Hyperlipidemia
Echo 03/2023: [facility] study, EF 55-60%, mod MR, mod TR
Echo 11/14/23: EF 50-55%, no WMA, mod MR, mild to mod with peak/mean 19/10 mmHg, sev TR with PAP 69 mmHg
Plan:
-Initial symptomatic improvement with diuresis, but then increasing SOB and cough overnight with fever up to 101 degrees Fahrenheit and leukocytosis. Hospitalist attending is planning to start antibiotics.
-Weight is down 6 lbs overnight with Lasix 40 mg IV BID diuresis. Patient was taking Lasix 20 mg PO daily prior to admission.
-EF 50-55% by echo with mod MR which is stable compared to echo with her primary church business administrator in 03/2023. Mild to mod not mentioned in previous echo.
-Patient with known permanent Afib. Amiodarone started last admission due to hypotension and rapid rates, but stopped this admission to allow for uptitration of Coreg. Increased Coreg to 12.5 mg BID 11/14/23.
-INR supratherapeutic at 4.3 on 11/14/23 and warfarin held. INR down to 4.05 on 11/15/23 and will hold warfarin again.
-INRs managed by [facility] using a home monitor. INR goal is 2-3. Patient has not switched to NOAC in the past because warfarin is her preference.
-Patient with h/o CVA in the setting of FFP reversal and subtherapeutic INR after appendectomy in 2017. Patient will need to be bridged with heparin if INR is less than 2.
-Patient previously on digoxin for HR control, but this was stopped last admission.
-Peak Troponin 1.01. No chest pain and ECG without acute ischemic change. No WMA on echo. Will manage as a likely nonischemic myocardial injury Troponin elevation due to acute HF and HTN emergency.
HPI: Patient came to [facility] from [facility] early this morning with HTN and SOB, patient now admitted with acute HF and cardiology has been consulted. Patient follows with Dr. Laura at [facility] and was seen 08/10/23 and no medication changes
at that time. Patient then had a mechanical fall at home and presented to [facility] with a right hip fracture on 10/17/23. Patient was admitted and bridged with Heparin while her INR drifted down. Patient's INR was not reversed due to h/o CVA with FFP
reversal in the setting of appendectomy in 2017. 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 Since then patient has been bridged with Lovenox. Following right hip ORIF the patient was bridged back to
therapeutic INR and then sent to the [facility] for rehab. Patient reports that she is making good progress in rehab, but started with increasing SOB and cough and [facility] nursing noted increasing HTN with BPs of 205/110 and then in the
ER 156/90. Patient was given Lasix 40 mg IV x1 in the ER and reports improved SOB, but ongoing cough. BP has improved and patient was given extra dose of lisinopril 2.5 mg and Lasix 20 mg at [facility] last night.
Progress Note - Blasting Entryman
Subjective
Date of Service: November 15, 2023
Her cough is worse, but edema is better
Objective
Labs:
11/15/23 02:14
11/15/23 02:14
Labs
Hgb 10.3 g/dL (12.0-16.0) L 11/15/23 02:14
Hct 31.5 % (37.0-47.0) L 11/15/23 02:14
Plt Count 214 10^3/uL (130-400) D 11/15/23 02:14
PT 39.4 Sec (11.4-14.6) H 11/15/23 02:14
INR 4.05 11/15/23 02:14
Sodium 135 mmol/L (135-145) 11/15/23 02:14
Potassium 3.5 mmol/L (3.5-5.1) 11/15/23 02:14
BUN 17 mg/dl (7-17) 11/15/23 02:14
Creatinine 0.7 mg/dL (0.6-1.0) 11/15/23 02:14
Glucose 111 mg/dl (70-99) H 11/15/23 02:14
Troponins
02/1411/14/23 11/14/23
01:59 04:30 10:56
Troponin I 0.019 0.391 H* D 1.010 H* D
11/14/23
16:31
Troponin I 0.866 H*
Vital Signs and I&O:
Vital Signs
Temp Pulse Resp BP Pulse Ox
99.8 F 68 12 120/97 100
11/15/23 11:27 11/15/23 11:37 11/15/23 11:37 11/15/23 08:40 11/15/23 11:37
Vital Signs
Temp Pulse Resp BP Pulse Ox
99.8 F 68 12 120/97 100
11/15/23 11:27 11/15/23 11:37 11/15/23 11:37 11/15/23 08:40 11/15/23 11:37
Intake & Output
11/13/23 11/14/23 11/15/23 11/16/23
06:59 06:59 06:59 06:59
Intake Total 720 / 720
Output Total 2300 / 2300 600 / 600
Balance -1580 / -1580 -600 / -600
Physical Exam
Physical Exam
GEN: No distress, AAOx3
HEENT: EOMI, MMM
LUNGS: Rhonchi and wheeze B/L.
CV: Irreg irreg, S1/S2, 1/6 syst LSB
ABD: soft, BS+, NT, ND
EXT: +Trace B/L LE edema. No clubbing, cyanosis or lesions B/L
NEURO: Gross non-focal
SKIN: Warm, dry and pink. No rash
[2023-11-15] MEDS: STERILE WATER FOR INJECTION 10 ML IV (12:59)
[2023-11-15] MEDS: ROCEPHIN 1000 MG IV (12:59)
[2023-11-15] MEDS: ZITHROMAX 250 MG PO (12:59)
--- NOTE | 2023-11-15 14:34 | W.PN.UPDATE ---
Update Note
Progress Note Update
Updated by nursing that patient was hypotensive and as low as 79/57. Patient denies feeling lightheaded. Will hold this afternoon's dose of Lasix. Placed hold parameters on Coreg for SBP less than 100. NSS 250 ml bolus.
[2023-11-15] MEDS: NSS 500 IV (14:41)
[2023-11-15] MEDS: VIBRAMYCIN 100 MG PO ×2 (15:30→20:34)
--- NOTE | 2023-11-15 15:30 | PTCARENOTE ---
Assumed care of patient from previous RN. Pt hypotensive with IVF bolus infusing. BP 80/40. HR 76. Temp 100.2. Requiring 12 L midflow. Pt lungs coarse t/o with rales. Harsh productive cough with croft sputum. Pt states she is very tired. HR a
fib. Plus 2 lower extremity edema appreciated. Bilateral dp pulses by doppler. Cardiology and pt attending notified of status. orders obtained. Awaiting bed in IMU.
[2023-11-15] MEDS: ProAmatine 5 MG PO (16:30)
--- NOTE | 2023-11-15 16:35 | PTCARENOTE ---
midodrine given per DO request prior to transfer
--- NOTE | 2023-11-15 16:48 | PTCARENOTE ---
Report called to IMU. PT transferred in bed.
[2023-11-15 16:53] LABS: Lactic Acid 1.3 mmol/L (0.7-2.0)
--- NOTE | 2023-11-15 17:26 | W.PN.UPDATE ---
Update Note
Progress Note Update
Patient seen and evaluated at request of patient/primary team. She does report that she was unable to make her previously scheduled outpatient appointment because of her hospitalization. Feels well from a hip standpoint without hip or groin pain.
Incision visualized Right hip, well healed incision, no erythema or ecchymotic staining, mild to moderate swelling right thigh/lower extremity, leg lengths equal, distal motor and sensation at baseline
83 yo F s/p R hip hemiarthroplasty
WBAT RLE
PT/OT- ambulate
DVT ppx
Posterior hip precautions
Discussed follow up as outpatient upon discharge for repeat evaluation with patient. She will plan to call office after discharged.
[2023-11-15] MEDS: ROBITUSSIN DM 10 ML PO (17:44)
--- NOTE | 2023-11-15 18:00 | PTCARENOTE ---
Received patient by stretcher from IVU. Patient AAOx3, c/o cough, PRN given. BP soft but stable, Afib on monitor. 96% on 6L NC, no SOB. +pulses with +2 edema to b/l lower extremities, RLE warm, LLE cool. Bed alarm on for safety. Updated patient on
plan of care. Continuing to closely monitor patient.
--- NOTE | 2023-11-15 20:24 | W.PN.UPDATE ---
Update Note
Progress Note Update
Nurse reporting patient received as transfer with left cool leg, reporting weak palpable pulse bilaterally, patient with recent cemented right hip hemiarthroplasty in October 2023. Upon assessment patient is AAOx3, offers no complaints and describes
previous 'blockage' that was treated by Dr. Smith in her RLE, she was unable to describe details. Unable to palpate pedal pulses bilaterally, they are present with Doppler bilaterally. Right leg warm to touch, cap refill <3 seconds and edematous; left
leg is warm to touch but temperature is notably cooler than right, cap refill <3 seconds and is edematous. No obvious signs of infection or concern for DVT at this time. Reviewed with detail assembler Dr. Gill, will sign-out to attending new findings.
[2023-11-15] MEDS: LEVOPHED 250 IV (20:53)
--- NOTE | 2023-11-15 21:15 | PTCARENOTE ---
Pt AAOx3 forgetful to exact date, but able to recall month and year. B/l LE assessed for equality d/t previous RN report of LLE colder than RLE. This RN certifies that LLE is cool, RLE is warm. Pulses audible with doppler b/l. Pt denies any
difference in sensation, discomfort, etc. SOFTWARE DEVELOPER INTERN Bambi assessed at bedside and certifies this RN's assessment. No new orders at this time. This RN initiated levophed order beginning at 2mcg/min d/t MAP <65 since 18:00. Pt curious and inquisitive
about care, education provided to pt regarding BP, MAP, and medication. VS will continue to be closely monitored throughout this shift. Call clements placed within reach. Safe environment maintained.
[2023-11-16] VITALS (24 sets, daily range): BP systolic 88–132; BP diastolic 37–107; PULSE 93; O2SAT 98; BMI 27.0
[2023-11-16] MEDS: ROBITUSSIN DM 10 ML PO ×3 (00:36→20:37)
[2023-11-16] MEDS: PHENERGAN WITH CODEINE SYRUP 5 ML PO ×3 (02:57→22:59)
[2023-11-16] MEDS: DUONEB 3 ML INH ×5 (03:52→20:47)
[2023-11-16] MEDS: TYLENOL 650 MG PO (05:41)
[2023-11-16 06:20] LABS: % Basophils 0.3 % (0-2); % Eosinophils 0.6 % (0-6); % Immature Granulocytes 0.3 % (0-0.5); % Lymphocytes 8.2 % (20.5-51.1); % Monocytes 13.1 % (1.7-9.3); % Neutrophils 77.5 % (42.2-75.2); Absolute Eosinophils 0.1 10^3/uL (0-0.7); Absolute Monocytes 1.6 10^3/uL (0.1-0.6); Absolute Neutrophils 9.2 10^3/uL (1.4-6.5); Hemoglobin 11.4 g/dL (12.0-16.0); Mean Corp Hgb Conc. 31.7 g/dL (33.0-37.0); Mean Corpuscular Hgb 30.7 pg (27.0-31.0); Mean Platelet Volume 10.1 fL (7.4-10.4); Nucleated Red Blood Cells % 0 %; Platelet Count 238 10^3/uL (130-400); Red Blood Cell Count 3.71 10^6/uL (4.20-5.40); White Blood Cell Count 11.9 10^3/uL (4.8-10.8)
[2023-11-16 06:42] LABS: ALT (SGPT) 50 U/L (0-35); AST (SGOT) 50 U/L (14-36); Albumin 3.8 g/dl (3.5-5.0); Alkaline Phosphatase 133 U/L (38-126); Blood Urea Nitrogen 18 mg/dl (7-17); Calcium 8.8 mg/dl (8.4-10.2); Carbon Dioxide 33 mmol/L (22-30); Chloride 99 mmol/L (98-107); Estimated Creatinine Clearance 66 ml/min; Glucose 105 mg/dl (70-99); Potassium 3.5 mmol/L (3.5-5.1); Sodium 136 mmol/L (135-145); Total Bilirubin 1.6 mg/dl (0.2-1.3); Total Protein 6.5 g/dl (6.3-8.2); eGFR > 60.00
--- NOTE | 2023-11-16 07:52 | W.PN.HOSP.TC ---
Today's Communication/Plan
-
see bold
Assessment / Plan
Assessment / Plan
HPI: 83 y/o F PMH Permanent Atrial Fibrillation, prior CVA, hypertension, recent R hip partial replacement 1 month ago after fall; presented from [facility] for elevated BP (205/110). She was given extra dose of Lasix/lisinopril around 2300
- currently BP stable in the ED. Patient c/o SOB, mild cough, weight gain and significant BL LE edema. She denies to CP, palpitations, abd pain, fever, chills etc.
She is complaining of increased urinary frequency likely due to Lasix given.
#Acute hypoxic respiratory failure
#Sepsis
#Community-acquired pneumonia
Currently requiring 4 L of oxygen, wean as tolerated, she does not wear oxygen at home
Continue Rocephin/doxycycline day 2, f/u sputum culture and Gram stain, urine Legionella and strep antigens neg
#Hypotension
Off Levophed since 2 AM
Lactic acid 1.3, midodrine as needed
Lasix held
#Acute heart failure with preserved ejection fraction
Echocardiogram reviewed, cardiology following
Hold Lasix secondary to hypotension, trend creatinine, trend daily weights
Can resume lisinopril and Coreg
#Moderate mitral regurgitation
#Severe tricuspid regurgitation
#Pulmonary hypertension
# Hypertensive urgency, followed by hypotension
ER blood pressure was 205/110
Blood pressure improved, can resume lisinopril and Coreg
# Troponin elevation, likely non-MN and related to acute CHF
Patient is chest pain-free
EKG noted A-fib rate controlled
# Elevated LFT likely due to hepatic congestion
Continue to follow LFT
Hold prior to admission statin for now
# Permanent Atrial Fibrillation
# History of Embolic CVA
# Coumadin Coagulopathy
INR 4.08, hold Coumadin for now
Check daily INR
Patient follows up with Dr. Laura at [facility] Card[facility]
#Known PVD
Anticoagulation as above
Follow-up with vascular surgery outpatient
# Recent Right Hip Fracture s/p right hip hemiarthroplasty on October 17, 2023
Weightbearing as tolerated to right lower extremity
Continue PT/OT eval, she is from [facility]
DVT Prophylaxis:�HEALTH OUTREACH WORKER Coumadin on hold, daily INR
Code Status: Full
Updated at bedside 11/16
Total time spent to see the patient on the floor, examine the patient, review data and lab results, discuss treatment plan with patient, nursing staff around 53 minutes.
Physical Exam
General: Appears acutely ill, no acute distress
HEENT: Normocephalic, Atraumatic, EOMI, MMM
Respiratory: Clear to Auscultation bilaterally
Cardiac: Normal S1/S2, irregularly irregular
GI: Soft, Nontender, Nondistended, Normal Bowel Sounds
Extremities: No Clubbing, Cyanosis
Bilateral lower extremity edema noted
Musculoskeletal: Right knee with resolving ecchymosis, right hip incision healing
Anticipated Discharge: > 48 hours
Subjective/Interval History
-
Date of Service: November 16, 2023
Patient continues to cough, and is short of breath.
Objective Data
-
Labs:
Laboratory Results
11/16/23
05:40
WBC 11.9 H
Hgb 11.4 L
Hct 36.0 L
Plt Count 238
Sodium 136
Potassium 3.5
Chloride 99
Carbon Dioxide 33 H
BUN 18 H
Creatinine 0.6
Glucose 105 H
Calcium 8.8
Total Bilirubin 1.6 H
AST 50 H
ALT 50 H
Alkaline Phosphatase 133 H
Vital Signs:
Vital Signs
Temp Pulse Resp BP Pulse Ox
100.7 F H 90 18 132/55 100
11/16/23 04:03 11/16/23 07:40 11/16/23 07:40 11/16/23 06:00 11/16/23 07:40
I&O
11/15/23 11/16/23 11/17/23
06:59 06:59 06:59
Intake Total 720 / 720 145 / 145
Output Total 2300 / 2300 800 / 800
Balance -1580 / -1580 -655 / -655
[2023-11-16] MEDS: VIBRAMYCIN 100 MG PO ×2 (08:12→20:37)
[2023-11-16] MEDS: ZESTRIL 2.5 MG PO ×2 (08:12→17:00)
--- NOTE | 2023-11-16 10:16 | PTCARENOTE ---
Patient received this am AAOx3, lung sounds diminished and coarse throughout. Patient requesting cough suppressant with and without codeine. Patient weaned to 4L 97%. Patient with +2/+3 edema to B/L LE. Patient sat up in the bed and encouraged to do
incentive spirometer as well as the acapella. Patient with generalized weakness throughout. Patient set up for breakfast encouraged to order soft food this am. PT/OT will work with the patient this morning. at the bedside.
[2023-11-16 12:09] LABS: INR 4.08; PT 39.7 Sec (11.4-14.6)
[2023-11-16] MEDS: COREG 12.5 MG PO ×2 (12:36→20:37)
[2023-11-16] MEDS: ROCEPHIN 1000 MG IV (12:36)
[2023-11-16] MEDS: STERILE WATER FOR INJECTION 10 ML IV (12:37)
--- NOTE | 2023-11-16 16:05 | W.PN.CARDCBS ---
Addendum entered and electronically signed by Adria Johansen MD 11/16/23 18:57:
I saw and examined the patient.
The Dry Cleaner Hand's note was reviewed and I agree with the note.
Comment:
GEN: No distress, awake, Ox3
HEENT: supple, anicteric, mmm
LUNGS: CTA, no wheezes/rales
CV: Reg, S1/S2, 1/6 syst LSB, no gallop
ABD: soft, BS+, NT/ND
EXT: No edema
NEURO: Gross non-focal
SKIN: No rash
Plan:
Continue to hold Coumadin. INR remains above 4.
Likely resume Lasix in a.m. Weight is down significantly. Creatinine remains normal.
Continue ceftriaxone and doxycycline. Blood pressure remains marginal. Continue lisinopril and Coreg.
Original Note:
Today's Communication / Plan
-
Continue to hold Coumadin with daily INR's
Lasix held again today, consider transitioning to oral Lasix in am
Continue Ceftriaxone and Doxycycline
Check ECG in am to monitor QTc
Wean oxygen as tolerated
If BP remains low may need to decrease Coreg, now back on Lisinopril
Impression / Plan
-
PCP: Dr. Sparks
Cardiology: Dr. Laura at [facility]
Impression:
Presented 11/14/2023 with SOB, fever and elevated blood pressure
Acute HFpEF
HTN emergency
Elevated Troponin
Recent admission for fall and right hip fracture 10/12/23 until 10/24/23
s/p ORIF right hip fracture 10/12/23
Right knee hematoma due to fall 10/12/23
Permanent Afib
Chronic warfarin OAC managed by [facility]
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
h/o hypertension
Hyperlipidemia
Echo 03/2023: AMS study, EF 55-60%, mod MR, mod TR
Echo 11/14/23: EF 50-55%, no WMA, mod MR, mild to mod with peak/mean 19/10 mmHg, sev TR with PAP 69 mmHg
Plan:
Presented 11/14/2023 with SOB, fever and elevated blood pressure. Found to have acute HFpEF and concern for pneumonia.
Acute on chronic heart failure
-ProBNP 2280
-Weight is down 2lbs overnight and 13 lbs since admission with Lasix 40 mg IV BID diuresis.
-Developed hypotension and Lasix placed on hold, last dose 11/15/2023 in am. None given 11/16/23
-BP improved. Would resume oral Lasix 40 mg am of 11/17/23. Patient was taking Lasix 20 mg PO daily prior to admission.
-EF 50-55% by echo with mod MR which is stable compared to echo with her primary branch library clerk in 03/2023. Mild to mod not mentioned in previous echo.
-Continue Coreg and Lisinopril. May need lower dose of Coreg if BP remains low
-Abnl LFTs
Pneumonia with acute hypoxic respiratory insufficiency
-Initial symptomatic improvement with diuresis, but then increasing SOB and cough with fever up to 101 degrees Fahrenheit and leukocytosis.
-CXR with concerns for LLL pneumonia
-Started on ceftriaxone and doxycycline 11/15/2023
-Continue on 2 lpm NC. wean as tolerated
-ECG with prolonged QTc 556 ms, avoid QT prolonging medication.
-Repeat ECG in am
Permanent Afib.
-Amiodarone started last admission due to hypotension and rapid rates, but stopped this admission to allow for uptitration of Coreg.
-Increased Coreg to 12.5 mg BID 11/14/23. The had hypotension.
-Rates are reasonably controlled. May need lower dose of Coreg if BP remains low
-Warfarin has been on hold since 11/14 due to supratherapeutic at 4.3 on 11/14/23, 4.05 on 11/15/23 and 4.08 11/16/2023. Continue to hold
-INRs managed by [facility] using a home monitor. INR goal is 2-3. Patient has not switched to NOAC in the past because warfarin is her preference.
-Patient with h/o CVA in the setting of FFP reversal and subtherapeutic INR after appendectomy in 2017. Patient will need to be bridged with heparin if INR is less than 2.
-Patient previously on digoxin for HR control, but this was stopped last admission.
-Peak Troponin 1.01. No chest pain and ECG without acute ischemic change. No WMA on echo. Will manage as a likely nonischemic myocardial injury Troponin elevation due to acute HF and HTN emergency.
Discussed above with pt and family (son and ) at bedside
HPI: Patient came to [facility] from [facility] rehab early this morning with HTN and SOB, patient now admitted with acute HF and cardiology has been consulted. Patient follows with Dr. Laura at [facility] and was seen 08/10/23 and no medication changes
at that time. Patient then had a mechanical fall at home and presented to [facility] with a right hip fracture on 10/17/23. Patient was admitted and bridged with Heparin while her INR drifted down. Patient's INR was not reversed due to h/o CVA with FFP
reversal in the setting of appendectomy in 2016. 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 Since then patient has been bridged with Lovenox. Following right hip ORIF the patient was bridged back to
therapeutic INR and then sent to the [facility] for rehab. Patient reports that she is making good progress in rehab, but started with increasing SOB and cough and [facility] nursing noted increasing HTN with BPs of 205/110 and then in the
ER 156/90. Patient was given Lasix 40 mg IV x1 in the ER and reports improved SOB, but ongoing cough. BP has improved and patient was given extra dose of lisinopril 2.5 mg and Lasix 20 mg at [facility] last night.
Progress Note - Senior Informatica Developer
Subjective
Date of Service: November 16, 2023
Patient seen and examined. Sitting up in bed wearing oxygen. Still feels SOB with cough.
Objective
Labs:
11/16/23 05:40
11/16/23 05:40
Labs
Hgb 11.4 g/dL (12.0-16.0) L 11/16/23 05:40
Hct 36.0 % (37.0-47.0) L 11/16/23 05:40
Plt Count 238 10^3/uL (130-400) 11/16/23 05:40
PT 39.7 Sec (11.4-14.6) H 11/16/23 11:50
INR 4.08 11/16/23 11:50
Sodium 136 mmol/L (135-145) 11/16/23 05:40
Potassium 3.5 mmol/L (3.5-5.1) 11/16/23 05:40
BUN 18 mg/dl (7-17) H 11/16/23 05:40
Creatinine 0.6 mg/dL (0.6-1.0) 11/16/23 05:40
Glucose 105 mg/dl (70-99) H 11/16/23 05:40
Troponins
11/14/23 11/14/23 11/14/23
01:59 04:30 10:56
Troponin I 0.019 0.391 H* D 1.010 H* D
11/14/23
16:31
Troponin I 0.866 H*
Vital Signs and I&O:
Vital Signs
Temp Pulse Resp BP Pulse Ox
97.7 F 79 18 112/63 98
11/16/23 11:05 11/16/23 15:31 11/16/23 15:31 11/16/23 12:36 11/16/23 15:31
Vital Signs
Temp Pulse Resp BP Pulse Ox
97.7 F 79 18 112/63 98
11/16/23 11:05 11/16/23 15:31 11/16/23 15:31 11/16/23 12:36 11/16/23 15:31
Intake & Output
11/14/23 11/15/23 11/16/23 11/17/23
06:59 06:59 06:59 06:59
Intake Total 720 / 720 145 / 145
Output Total 2300 / 2300 800 / 800
Balance -1580 / -1580 -655 / -655
Physical Exam
Physical Exam
GEN: No distress, awake, Ox3, wearing oxygen
HEENT: supple, anicteric, mmm
LUNGS: Rhonchi and faint wheeze on left, CTA on right
CV: irreg irreg, S1/S2, 1/6 syst LSB murmur
ABD: soft, BS+, NT/ND
EXT: Trace edema on right and +1 edema on left
NEURO: Gross non-focal
SKIN:Warm, dry and pink. No rash
[2023-11-17] VITALS (17 sets, daily range): BP systolic 80–134; BP diastolic 46–100; PULSE 86–93; O2SAT 98; BMI 27.4
[2023-11-17] MEDS: PHENERGAN WITH CODEINE SYRUP 5 ML PO ×3 (05:04→20:53)
[2023-11-17 05:36] LABS: Hematocrit 28.9 % (37.0-47.0); Hemoglobin 9.3 g/dL (12.0-16.0); Mean Corp Hgb Conc. 32.2 g/dL (33.0-37.0); Mean Corpuscular Hgb 30.5 pg (27.0-31.0); Mean Corpuscular Volume 94.8 fL (81.0-99.0); Mean Platelet Volume 10.4 fL (7.4-10.4); Platelet Count 205 10^3/uL (130-400); Red Blood Cell Count 3.05 10^6/uL (4.20-5.40); Red Cell Dist. Width 15.9 % (11.5-14.5); White Blood Cell Count 7.4 10^3/uL (4.8-10.8)
[2023-11-17 05:40] LABS: INR 3.74
[2023-11-17 05:52] LABS: ALT (SGPT) 38 U/L (0-35); AST (SGOT) 41 U/L (14-36); Albumin 2.9 g/dl (3.5-5.0); Alkaline Phosphatase 101 U/L (38-126); Blood Urea Nitrogen 16 mg/dl (7-17); Calcium 8.8 mg/dl (8.4-10.2); Carbon Dioxide 34 mmol/L (22-30); Chloride 94 mmol/L (98-107); Estimated Creatinine Clearance 74 ml/min; Glucose 93 mg/dl (70-99); Potassium 3.4 mmol/L (3.5-5.1); Sodium 134 mmol/L (135-145); Total Bilirubin 1.3 mg/dl (0.2-1.3); Total Protein 5.5 g/dl (6.3-8.2); eGFR > 60.00
[2023-11-17] MEDS: KCL 40 MEQ PO (06:34)
[2023-11-17] MEDS: DUONEB 3 ML INH ×4 (08:07→19:46)
--- NOTE | 2023-11-17 09:07 | W.PN.HOSP.TC ---
Today's Communication/Plan
-
see bold
Assessment / Plan
Assessment / Plan
HPI: 83 y/o F PMH Permanent Atrial Fibrillation, prior CVA, hypertension, recent R hip partial replacement 1 month ago after fall; presented from [facility] for elevated BP (205/110). She was given extra dose of Lasix/lisinopril around 2300
- currently BP stable in the ED. Patient c/o SOB, mild cough, weight gain and significant BL LE edema. She denies to CP, palpitations, abd pain, fever, chills etc.
She is complaining of increased urinary frequency likely due to Lasix given.
#Acute hypoxic respiratory failure
#Sepsis
#Community-acquired pneumonia
Currently 94% on RA, down from 12 L of oxygen. She does not wear oxygen at home
Continue Rocephin/doxycycline day 3, sputum culture w/ normal magda, urine Legionella and strep antigens neg
#Hypotension
Lactic acid 1.3
S/p levophed, BP stable off midodrine
#QT prolongation
Avoid Zofran and other QT prolonging agents
#Acute heart failure with preserved ejection fraction
Echocardiogram reviewed, s/p IV lasix
Oral lasix resumed 11/17, trend creatinine, trend daily weights
Resumed lisinopril and Coreg
#Hypokalemia
Replete, recheck am K and Mg
#Moderate mitral regurgitation
#Severe tricuspid regurgitation
#Pulmonary hypertension
# Hypertensive urgency, followed by hypotension
ER blood pressure was 205/110
Blood pressure improved, resumed lasix, lisinopril and Coreg
# Troponin elevation, likely non-GA and related to acute CHF
Patient is chest pain-free
EKG noted A-fib rate controlled
# Elevated LFT likely due to hepatic congestion
Improving
Hold prior to admission statin for now
# Permanent Atrial Fibrillation
# History of Embolic CVA
# Coumadin Coagulopathy
INR 3.74, hold Coumadin for now
Check daily INR
Patient follows up with Dr. Laura at [facility] Cardiology
#Known PVD
Statin/anticoagulation as above
Follow-up with vascular surgery outpatient
# Recent Right Hip Fracture s/p right hip hemiarthroplasty on October 17, 2023
Weightbearing as tolerated to right lower extremity
Continue PT/OT eval, she is from [facility] Re[facility]
DVT Prophylaxis:�PROFESSOR OF KINESIOLOGY Coumadin on hold, daily INR
Code Status: Full
Updated at bedside 11/16
Total time spent to see the patient on the floor, examine the patient, review data and lab results, discuss treatment plan with patient, nursing staff around 52 minutes.
Physical Exam
General: Appears acutely ill, no acute distress
HEENT: Normocephalic, Atraumatic, EOMI, MMM
Respiratory: Clear to Auscultation bilaterally
Cardiac: Normal S1/S2, irregularly irregular
GI: Soft, Nontender, Nondistended, Normal Bowel Sounds
Extremities: No Clubbing, Cyanosis
Bilateral lower extremity edema noted
Musculoskeletal: Right knee with resolving ecchymosis, right hip incision healing
Anticipated Discharge: > 48 hours
Subjective/Interval History
-
Date of Service: November 16, 2023
Breathing improved. Continues to cough. Fever resolved.
Objective Data
-
Labs:
Laboratory Results
11/16/23 11/16/23 11/16/23
05:40 10:37 11:50
WBC 11.9 H
Hgb 11.4 L
Hct 36.0 L
Plt Count 238
PT Cancelled 39.7 H
INR Cancelled 4.08
Sodium 136
Potassium 3.5
Chloride 99
Carbon Dioxide 33 H
BUN 18 H
Creatinine 0.6
Glucose 105 H
Calcium 8.8
Total Bilirubin 1.6 H
AST 50 H
ALT 50 H
Alkaline Phosphatase 133 H
Vital Signs:
Vital Signs
Temp Pulse Resp BP Pulse Ox
97.7 F 87 15 112/63 97
11/16/23 11:05 11/16/23 12:36 11/16/23 11:53 11/16/23 12:36 11/16/23 11:53
I&O
11/15/23 11/16/23 11/17/23
06:59 06:59 06:59
Intake Total 720 / 720 145 / 145
Output Total 2300 / 2300 800 / 800
Balance -1580 / -1580 -655 / -655
[2023-11-17] MEDS: ZESTRIL 2.5 MG PO (09:10)
[2023-11-17] MEDS: VIBRAMYCIN 100 MG PO ×2 (09:10→20:02)
[2023-11-17] MEDS: COREG PO ×2 (09:13→22:01)
[2023-11-17] MEDS: ROCEPHIN 1000 MG IV (11:16)
[2023-11-17] MEDS: STERILE WATER FOR INJECTION 10 ML IV (11:17)
--- NOTE | 2023-11-17 12:18 | W.PN.CARDCBS ---
Today's Communication / Plan
-
Jonah wrap's bilateral lower extremities as tolerates
Reduce carvedilol to 6.25 mg twice daily
Start oral Lasix 40 mg daily
Increase activity
Treatment of pneumonia per primary service
Impression / Plan
-
PCP: Dr. Sparks
Cardiology: Dr. Laura at [facility]
Impression:
Presented 11/14/2023 with SOB, fever and elevated blood pressure
Acute HFpEF
HTN emergency
Elevated Troponin
Recent admission for fall and right hip fracture 10/12/23 until 10/24/23
s/p ORIF right hip fracture 10/12/23
Right knee hematoma due to fall 10/12/23
Permanent Afib
Chronic warfarin OAC managed by [facility]
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
h/o hypertension
Hyperlipidemia
Echo 03/2023: AMS study, EF 55-60%, mod MR, mod TR
Echo 11/14/23: EF 50-55%, no WMA, mod MR, mild to mod with peak/mean 19/10 mmHg, sev TR with PAP 69 mmHg
Plan:
Presented 11/14/2023 with SOB, fever and elevated blood pressure. Found to have acute HFpEF and possible pneumonia.
Acute on chronic heart failure
-ProBNP 2280
-Weight is fairly stable. Diuretics on hold currently given low blood pressure. Continue to evaluate.
-Developed hypotension and Lasix placed on hold, last dose 11/15/2023 in am. None given 11/16/23 .
-BP fairly stable. Will resume oral Lasix 40 mg am . Patient was taking Lasix 20 mg PO daily prior to admission.
-EF 50-55% by echo with mod MR which is stable compared to echo with her primary model set artist in 03/2023. Mild to mod not mentioned in previous echo.
-Continue Coreg and Lisinopril. However will lower dose of Coreg to 6.25 mg twice daily
-Abnl LFTs, stable/improved
-I ordered Jonah wrap's which may be helpful for edema and low blood pressure.
Pneumonia with acute hypoxic respiratory insufficiency
-Doing better with no further fevers. Leukocytosis improved.
-CXR with suggestion of LLL pneumonia
-Started on ceftriaxone and doxycycline 11/15/2023
-Not currently requiring oxygen
-ECG with prolonged although U waves present, avoid QT prolonging medication.
-Replete electrolytes
Permanent Afib.
-Amiodarone started last admission due to hypotension and rapid rates, but stopped this admission to allow for uptitration of Coreg.
-Increased Coreg to 12.5 mg BID 11/14/23. The had hypotension.
-Rates are reasonably controlled.
-Warfarin has been on hold since 11/14 due to supratherapeutic at 4.3 on 11/14/23, 4.05 on 11/15/23 and 4.08 11/16/2023. 11/17/2023 INR 3.7. Continue to hold and reassess tomorrow
-INRs managed by [facility] using a home monitor. INR goal is 2-3. Patient has not switched to NOAC in the past because warfarin is her preference.
-Patient with h/o CVA in the setting of FFP reversal and subtherapeutic INR after appendectomy in 2017. Patient will need to be bridged with heparin if INR is less than 2.
-Peak Troponin 1.01. No chest pain and ECG without acute ischemic change. No WMA on echo. Will manage as a likely nonischemic myocardial injury Troponin elevation due to acute HF and HTN emergency.
Discussed above with pt and family () at bedside
HPI: Patient came to [facility] from [facility] early this morning with HTN and SOB, patient now admitted with acute HF and cardiology has been consulted. Patient follows with Dr. Laura at [facility] and was seen 08/10/23 and no medication changes
at that time. Patient then had a mechanical fall at home and presented to [facility] with a right hip fracture on 10/17/23. Patient was admitted and bridged with Heparin while her INR drifted down. Patient's INR was not reversed due to h/o CVA with FFP
reversal in the setting of appendectomy in 2017. 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 Since then patient has been bridged with Lovenox. Following right hip ORIF the patient was bridged back to
therapeutic INR and then sent to the [facility] for rehab. Patient reports that she is making good progress in rehab, but started with increasing SOB and cough and [facility] nursing noted increasing HTN with BPs of 205/110 and then in the
ER 156/90. Patient was given Lasix 40 mg IV x1 in the ER and reports improved SOB, but ongoing cough. BP has improved and patient was given extra dose of lisinopril 2.5 mg and Lasix 20 mg at [facility] last night.
Progress Note - Consulting Utility Forester
Subjective
Date of Service: November 17, 2023
She feels her breathing is improving. She denies chest pain and palpitations. Still with some edema.
Objective
Labs:
11/17/23 04:50
11/17/23 04:50
Labs
Hgb 9.3 g/dL (12.0-16.0) L 11/17/23 04:50
Hct 28.9 % (37.0-47.0) L 11/17/23 04:50
Plt Count 205 10^3/uL (130-400) 11/17/23 04:50
PT 37.0 Sec (11.4-14.6) H 11/17/23 04:50
INR 3.74 11/17/23 04:50
Sodium 134 mmol/L (135-145) L 11/17/23 04:50
Potassium 3.4 mmol/L (3.5-5.1) L 11/17/23 04:50
BUN 16 mg/dl (7-17) 11/17/23 04:50
Creatinine 0.5 mg/dL (0.6-1.0) L 11/17/23 04:50
Glucose 93 mg/dl (70-99) 11/17/23 04:50
Troponins
11/14/23
16:31
Troponin I 0.866 H*
Vital Signs and I&O:
Vital Signs
Temp Pulse Resp BP Pulse Ox
98.3 F 92 20 109/94 94
11/17/23 11:30 11/17/23 11:25 11/17/23 11:25 11/17/23 10:01 11/17/23 11:56
Vital Signs
Temp Pulse Resp BP Pulse Ox
98.3 F 92 20 109/94 94
11/17/23 11:30 11/17/23 11:25 11/17/23 11:25 11/17/23 10:01 11/17/23 11:56
Intake & Output
11/15/23 11/16/23 11/17/23 11/18/23
06:59 06:59 06:59 06:59
Intake Total 720 / 720 145 / 145 240 / 240
Output Total 2300 / 2300 800 / 800 500 / 500
Balance -1580 / -1580 -655 / -655 -260 / -260
Physical Exam
Physical Exam
General: Well developed, well nourished in NAD.
Heart: Distant heart sounds irregular, no murmurs, No S3, S4, no rubs.
Lungs: Coarse rhonchorous anterior breath sounds
Extremities: No clubbing, cyanosis +1 edema bilaterally.
Neuro: Grossly nonfocal, awake, alert and oriented x3.
[2023-11-17] MEDS: LASIX 40 MG PO (13:03)
--- NOTE | 2023-11-17 13:24 | PTCARENOTE ---
Patient up to [facility], initially with 3 staff members. Patient doing well able to stand and take a few steps to commode. Patient then standing for pericare and then sat in chair. RUDI bandaged applied per order. Care performed on R knee. Fadi
replaced. Assessment, care and VS as charted.
[2023-11-18] VITALS (17 sets, daily range): BP systolic 86–139; BP diastolic 46–88; PULSE 86; O2SAT 92; BMI 27.0
[2023-11-18 06:00] LABS: Hematocrit 30.2 % (37.0-47.0); Hemoglobin 9.6 g/dL (12.0-16.0); Mean Corp Hgb Conc. 31.8 g/dL (33.0-37.0); Mean Corpuscular Hgb 30.6 pg (27.0-31.0); Mean Corpuscular Volume 96.2 fL (81.0-99.0); Mean Platelet Volume 9.8 fL (7.4-10.4); Platelet Count 210 10^3/uL (130-400); Red Blood Cell Count 3.14 10^6/uL (4.20-5.40); Red Cell Dist. Width 15.5 % (11.5-14.5); White Blood Cell Count 6.2 10^3/uL (4.8-10.8)
--- NOTE | 2023-11-18 06:05 | PTCARENOTE ---
Pt aaox3, cooperative. NSR on monitor. pox 98% on 1L nc. Pt c/o increased coughing and congestion. audible rhonchi, course breath sounds. Pt states 'this sounds worse than before.' Contacted Anni ROCHA, pro-BNP ordered. Pt aware.
[2023-11-18] MEDS: DUONEB 3 ML INH ×4 (06:08→20:01)
[2023-11-18] MEDS: ROBITUSSIN DM 10 ML PO (06:11)
[2023-11-18 06:17] LABS: ALT (SGPT) 41 U/L (0-35); AST (SGOT) 41 U/L (14-36); Albumin 2.8 g/dl (3.5-5.0); Alkaline Phosphatase 92 U/L (38-126); Blood Urea Nitrogen 12 mg/dl (7-17); Calcium 9.1 mg/dl (8.4-10.2); Carbon Dioxide 35 mmol/L (22-30); Chloride 97 mmol/L (98-107); Estimated Creatinine Clearance 66 ml/min; Glucose 102 mg/dl (70-99); Potassium 3.7 mmol/L (3.5-5.1); Sodium 136 mmol/L (135-145); Total Bilirubin 1.2 mg/dl (0.2-1.3); Total Protein 5.2 g/dl (6.3-8.2); eGFR > 60.00
[2023-11-18 06:24] LABS: INR 2.63
[2023-11-18 06:55] LABS: NT-proBNP 5000 pg/ml
[2023-11-18] MEDS: DUONEB INH (07:35)
[2023-11-18] MEDS: COREG 6.25 MG PO ×2 (08:51→20:36)
[2023-11-18] MEDS: ZESTRIL 2.5 MG PO (08:53)
[2023-11-18] MEDS: VIBRAMYCIN 100 MG PO ×2 (08:53→20:36)
[2023-11-18] MEDS: LASIX 40 MG PO (08:53)
--- NOTE | 2023-11-18 09:03 | W.PN.HOSP.TC ---
Today's Communication/Plan
-
see bold
Assessment / Plan
Assessment / Plan
HPI: 83 y/o F PMH Permanent Atrial Fibrillation, prior CVA, hypertension, recent R hip partial replacement 1 month ago after fall; presented from [facility] for elevated BP (205/110). She was given extra dose of Lasix/lisinopril around 2300
- currently BP stable in the ED. Patient c/o SOB, mild cough, weight gain and significant BL LE edema. She denies to CP, palpitations, abd pain, fever, chills etc.
She is complaining of increased urinary frequency likely due to Lasix given.
#Acute hypoxic respiratory failure
#Sepsis
#Community-acquired pneumonia
Currently 94% on RA, down from 12 L of oxygen. She does not wear oxygen at home
Continue Rocephin/doxycycline day 4, sputum culture w/ normal magda, urine Legionella and strep antigens neg
#Hypotension
Lactic acid 1.3
Resolved s/p levophed, BP stable off midodrine
#QT prolongation
Avoid Zofran and other QT prolonging agents
#Acute heart failure with preserved ejection fraction
Echocardiogram reviewed, s/p IV lasix
Oral lasix resumed 11/17, trend creatinine, trend daily weights
Resumed lisinopril and Coreg
#Hypokalemia
Repleted and resolved
#Moderate mitral regurgitation
#Severe tricuspid regurgitation
#Pulmonary hypertension
# Hypertensive urgency, followed by hypotension
ER blood pressure was 205/110
Blood pressure improved, resumed lasix, lisinopril and Coreg
# Troponin elevation, likely non-AK and related to acute CHF
Patient is chest pain-free
EKG noted A-fib rate controlled
# Elevated LFT likely due to hepatic congestion
Improving
Hold prior to admission statin for now
# Permanent Atrial Fibrillation
# History of Embolic CVA
# Coumadin Coagulopathy
INR 2.63 today, cardiology ordered warfarin 1 mg tonight
Check daily INR, she may need more warfarin ordered tomorrow
Patient follows up with Dr. Laura at [facility] Cardiology
#Known PVD
Statin/anticoagulation as above
Follow-up with vascular surgery outpatient
# Recent Right Hip Fracture s/p right hip hemiarthroplasty on October 17, 2023
Weightbearing as tolerated to right lower extremity
Continue PT/OT eval, she is from [facility] Rehab
DVT Prophylaxis:�SENIOR CONTROLLER warfarin, daily INR
Code Status: Full
Updated at bedside 11/16
Physical Exam
General: Appears acutely ill, no acute distress
HEENT: Normocephalic, Atraumatic, EOMI, MMM
Respiratory: Clear to Auscultation bilaterally
Cardiac: Normal S1/S2, irregularly irregular
GI: Soft, Nontender, Nondistended, Normal Bowel Sounds
Extremities: No Clubbing, Cyanosis
Bilateral lower extremity edema noted
Musculoskeletal: Right knee with resolving ecchymosis, right hip incision healing
Anticipated Discharge: > 48 hours
Subjective/Interval History
-
Date of Service: November 17, 2023
Patient's breathing continues to improve. She has a persistent productive cough. Fever resolved.
Objective Data
-
Labs:
Laboratory Results
11/17/23
04:50
WBC 7.4
Hgb 9.3 L
Hct 28.9 L
Plt Count 205
PT 37.0 H
INR 3.74
Sodium 134 L
Potassium 3.4 L
Chloride 94 L
Carbon Dioxide 34 H
BUN 16
Creatinine 0.5 L
Glucose 93
Calcium 8.8
Total Bilirubin 1.3
AST 41 H
ALT 38 H
Alkaline Phosphatase 101
Vital Signs:
Vital Signs
Temp Pulse Resp BP Pulse Ox
98.3 F 89 39 111/67 88
11/17/23 11:30 11/17/23 13:03 11/17/23 12:02 11/17/23 13:03 11/17/23 12:02
I&O
11/16/23 11/17/23 11/18/23
06:59 06:59 06:59
Intake Total 145 / 145 240 / 240
Output Total 800 / 800 500 / 500
Balance -655 / -655 -260 / -260
--- NOTE | 2023-11-18 10:24 | W.PN.CARDCBS ---
Today's Communication / Plan
-
Given extra 20 of IV Lasix in addition to usual 40 oral Lasix today (proBNP increased to 5000)
Follow volume status
Will give 40 mEq of potassium
Resume warfarin at 1 mg daily. Follow INR closely given antibiotics.
Continue rate control of atrial fibrillation
Continue treatment of pneumonia
Impression / Plan
-
PCP: Dr. Sparks
Cardiology: Dr. Laura at [facility]
Impression:
Presented 11/14/2023 with SOB, fever and elevated blood pressure
Acute HFpEF
HTN emergency
Elevated Troponin
Recent admission for fall and right hip fracture 10/12/23 until 10/24/23
s/p ORIF right hip fracture 10/12/23
Right knee hematoma due to fall 10/12/23
Permanent Afib
Chronic warfarin OAC managed by [facility]
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
h/o hypertension
Hyperlipidemia
Echo 03/2023: AMS study, EF 55-60%, mod MR, mod TR
Echo 11/14/23: EF 50-55%, no WMA, mod MR, mild to mod with peak/mean 19/10 mmHg, sev TR with PAP 69 mmHg
Plan:
Presented 11/14/2023 with SOB, fever and elevated blood pressure. Found to have acute HFpEF and possible pneumonia.
Acute on chronic heart failure
-ProBNP 2280 on admission now 5000 (11/18/2023). Lasix had been held because of concern of overdiuresis in the setting of pneumonia. Blood pressure has improved. Oral Lasix started 11/17/2023 at 40 mg
-Will give 20 mg of IV Lasix today in addition. Follow volume status. Follow blood pressure.
-11/17/2023 I had reduce carvedilol dose.
-Weight is fairly stable.
-Developed hypotension and Lasix placed on hold, last dose 11/15/2023 in am. None given 11/16/23 .
-EF 50-55% by echo with mod MR which is stable compared to echo with her primary medical billing manager in 03/2023. Mild to mod not mentioned in previous echo.
-Continue Coreg and Lisinopril.
-Abnl LFTs, stable/improved
-I ordered Jonah wrap's which may be helpful for edema and low blood pressure.
Pneumonia with acute hypoxic respiratory insufficiency
-Doing better with no further fevers. Leukocytosis improved.
-Continues with significant cough.
-Prior CXR with suggestion of LLL pneumonia
-Started on ceftriaxone and doxycycline 11/15/2023
-Not currently requiring oxygen
-ECG with prolonged QT although U waves present, avoid QT prolonging medication.
-Replete electrolytes. Will give an extra 40 mill equivalents of potassium today.
Permanent Afib.
-Amiodarone started last admission due to hypotension and rapid rates, but stopped this admission to allow for uptitration of Coreg.
-Increased Coreg to 12.5 mg BID 11/14/23. The had hypotension.
-Rates are reasonably controlled.
-Warfarin had been on hold since 11/14 due to supratherapeutic INR at 4.3.
-INR now 2.6. Patient seems to have been on 1 mg daily. I have resumed 1 mg daily but need to be cautious given antibiotics.
-INRs managed by AMS using a home monitor. INR goal is 2-3. Patient has not switched to NOAC in the past because warfarin is her preference.
-Patient with h/o CVA in the setting of FFP reversal and subtherapeutic INR after appendectomy in 2017. Patient will need to be bridged with heparin if INR is less than 2.
-Peak Troponin 1.01. No chest pain and ECG without acute ischemic change. No WMA on echo. Will manage as a likely nonischemic myocardial injury Troponin elevation due to acute HF and HTN emergency.
Discussed above with pt
HPI: Patient came to [facility] from [facility] ER rehab early this morning with HTN and SOB, patient now admitted with acute HF and cardiology has been consulted. Patient follows with Dr. Laura at [facility] and was seen 08/10/23 and no medication changes
at that time. Patient then had a mechanical fall at home and presented to [facility] with a right hip fracture on 10/17/23. Patient was admitted and bridged with Heparin while her INR drifted down. Patient's INR was not reversed due to h/o CVA with FFP
reversal in the setting of appendectomy in 2017. 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 Since then patient has been bridged with Lovenox. Following right hip ORIF the patient was bridged back to
therapeutic INR and then sent to the [facility] ER for rehab. Patient reports that she is making good progress in rehab, but started with increasing SOB and cough and [facility] ER nursing noted increasing HTN with BPs of 205/110 and then in the
ER 156/90. Patient was given Lasix 40 mg IV x1 in the ER and reports improved SOB, but ongoing cough. BP has improved and patient was given extra dose of lisinopril 2.5 mg and Lasix 20 mg at [facility] ER last night.
Progress Note - Night Baker
Subjective
Date of Service: November 18, 2023
She has cough. She is feeling better overall with less shortness of breath. She is off of oxygen at rest.
Objective
Labs:
11/18/23 05:43
11/18/23 05:43
Labs
Hgb 9.6 g/dL (12.0-16.0) L 11/18/23 05:43
Hct 30.2 % (37.0-47.0) L 11/18/23 05:43
Plt Count 210 10^3/uL (130-400) 11/18/23 05:43
PT 28.0 Sec (11.4-14.6) H 11/18/23 05:43
INR 2.63 11/18/23 05:43
Sodium 136 mmol/L (135-145) 11/18/23 05:43
Potassium 3.7 mmol/L (3.5-5.1) 11/18/23 05:43
BUN 12 mg/dl (7-17) 11/18/23 05:43
Creatinine 0.6 mg/dL (0.6-1.0) 11/18/23 05:43
Glucose 102 mg/dl (70-99) H 11/18/23 05:43
Vital Signs and I&O:
Vital Signs
Temp Pulse Resp BP Pulse Ox
98.3 F 98 19 139/85 94
11/18/23 08:35 11/18/23 08:53 11/18/23 00:00 11/18/23 08:53 11/18/23 00:00
Vital Signs
Temp Pulse Resp BP Pulse Ox
98.3 F 98 19 139/85 94
11/18/23 08:35 11/18/23 08:53 11/18/23 00:00 11/18/23 08:53 11/18/23 00:00
Intake & Output
11/16/23 11/17/23 11/18/23 11/19/23
06:59 06:59 06:59 06:59
Intake Total 145 / 145 240 / 240 480 / 480
Output Total 800 / 800 500 / 500 1250 / 1250
Balance -655 / -655 -260 / -260 -770 / -770
Physical Exam
Physical Exam
General: Well developed, well nourished in NAD.
Heart: Distant/irregular
Lungs: Coarse anterior breath sounds
Extremities: Legs wrapped with trace to +1 edema
Neuro: Grossly nonfocal, awake, alert and oriented x3.
[2023-11-18] MEDS: COUMADIN 1 MG PO (11:05)
[2023-11-18] MEDS: LASIX 20 MG IV (11:07)
[2023-11-18] MEDS: KCL 40 MEQ PO (11:08)
[2023-11-18] MEDS: ROCEPHIN 1000 MG IV (11:12)
[2023-11-18] MEDS: STERILE WATER FOR INJECTION 10 ML IV (15:09)
--- NOTE | 2023-11-18 17:00 | PTCARENOTE ---
Patient out of bed for about 2 hours this shift. Hip precautions enforced. Patient is in good spirits. IV lasix administered, diuresed 700ml sanjuanita urine. Patient is compliant with plan of care. at bedside. Denying pain when asked. EKG
completed, afib continues. Patient weaned off oxygen, productive cough bringing up yellow sputum.
[2023-11-18] MEDS: PHENERGAN WITH CODEINE SYRUP 5 ML PO (20:36)
--- NOTE | 2023-11-18 23:10 | PTCARENOTE ---
Pt resting, appears comfortable. pox decreased to 86% on RA, placed on 2L NC, pox increased to 95%. no acute distress.
[2023-11-19] VITALS (18 sets, daily range): BP systolic 69–134; BP diastolic 37–107; PULSE 85–86; O2SAT 93–94; BMI 26.6
[2023-11-19 05:13] LABS: Hematocrit 31.6 % (37.0-47.0); Hemoglobin 10.3 g/dL (12.0-16.0); Mean Corp Hgb Conc. 32.6 g/dL (33.0-37.0); Mean Corpuscular Hgb 30.1 pg (27.0-31.0); Mean Corpuscular Volume 92.4 fL (81.0-99.0); Mean Platelet Volume 10.1 fL (7.4-10.4); Platelet Count 208 10^3/uL (130-400); Red Blood Cell Count 3.42 10^6/uL (4.20-5.40); Red Cell Dist. Width 15.5 % (11.5-14.5); White Blood Cell Count 6.2 10^3/uL (4.8-10.8)
[2023-11-19 05:22] LABS: INR 2.47; PT 26.6 Sec (11.4-14.6)
[2023-11-19 06:13] LABS: ALT (SGPT) 41 U/L (0-35); AST (SGOT) 39 U/L (14-36); Albumin 2.8 g/dl (3.5-5.0); Alkaline Phosphatase 93 U/L (38-126); Blood Urea Nitrogen 16 mg/dl (7-17); Calcium 9.1 mg/dl (8.4-10.2); Carbon Dioxide 31 mmol/L (22-30); Chloride 97 mmol/L (98-107); Estimated Creatinine Clearance 66 ml/min; Glucose 99 mg/dl (70-99); Potassium 4.1 mmol/L (3.5-5.1); Sodium 135 mmol/L (135-145); Total Protein 5.4 g/dl (6.3-8.2); eGFR > 60.00
--- NOTE | 2023-11-19 07:49 | W.PN.HOSP.TC ---
Addendum entered and electronically signed by Paola Gill MD 11/20/23 08:21:
septic shock
-resolved
-off levophed
Original Note:
Today's Communication/Plan
-
additional IV lasix today
likely approaching DC in next 1-2 days
Assessment / Plan
Assessment / Plan
HPI: 83 y/o F PMH Permanent Atrial Fibrillation, prior CVA, hypertension, recent R hip partial replacement 1 month ago after fall; presented from [facility] for elevated BP (205/110). She was given extra dose of Lasix/lisinopril around 2300
- currently BP stable in the ED. Patient c/o SOB, mild cough, weight gain and significant BL LE edema. She denies to CP, palpitations, abd pain, fever, chills etc.
She is complaining of increased urinary frequency likely due to Lasix given.
#Acute hypoxic respiratory failure
#Sepsis
#Community-acquired pneumonia
Currently 94% on RA, down from 12 L of oxygen. She does not wear oxygen at home
Continue Rocephin/doxycycline day 02/04, sputum culture w/ normal magda, urine Legionella and strep antigens neg
#Hypotension
Lactic acid 1.3
Resolved s/p levophed, BP stable off midodrine
#QT prolongation
Avoid Zofran and other QT prolonging agents
#Acute heart failure with preserved ejection fraction
Echocardiogram reviewed, s/p IV lasix
Oral lasix resumed 11/17
given exam will give additional dose IV lasix x 1 today; discusssed with cardiology
Resumed lisinopril and Coreg
#Hypokalemia
Repleted and resolved
#Moderate mitral regurgitation
#Severe tricuspid regurgitation
#Pulmonary hypertension
# Hypertensive urgency, followed by hypotension
ER blood pressure was 205/110
Blood pressure improved, resumed lasix, lisinopril and Coreg
# Troponin elevation, likely non-DC and related to acute CHF
Patient is chest pain-free
EKG noted A-fib rate controlled
# Elevated LFT likely due to hepatic congestion
Improving
Hold prior to admission statin for now
# Permanent Atrial Fibrillation
# History of Embolic CVA
# Coumadin Coagulopathy
INR 2.47 today, cardiology ordered warfarin 1 mg tonight
Check daily INR, she may need more warfarin ordered tomorrow
Patient follows up with Dr. Laura at [facility] Cardiology
#Known PVD
Statin/anticoagulation as above
Follow-up with vascular surgery outpatient
# Recent Right Hip Fracture s/p right hip hemiarthroplasty on October 17, 2023
Weightbearing as tolerated to right lower extremity
Continue PT/OT eval, she is from [facility] Rehab
DVT Prophylaxis:�HIP HOP ARTIST warfarin, daily INR
Code Status: Full
Updated at bedside 11/16
Physical Exam
General: Appears acutely ill, no acute distress
HEENT: Normocephalic, Atraumatic, EOMI, MMM
Respiratory: Clear to Auscultation bilaterally
Cardiac: Normal S1/S2, irregularly irregular
GI: Soft, Nontender, Nondistended, Normal Bowel Sounds
Extremities: No Clubbing, Cyanosis
Bilateral lower extremity edema noted
Musculoskeletal: Right knee with resolving ecchymosis, right hip incision healing
Anticipated Discharge: 24 - 48 hours
Subjective/Interval History
-
Date of Service: November 19, 2023
still has cough
some shortness of breath
Objective Data
-
Labs:
Laboratory Results
11/19/23
04:31
WBC 6.2
Hgb 10.3 L
Hct 31.6 L
Plt Count 208
PT 26.6 H
INR 2.47
Sodium 135
Potassium 4.1
Chloride 97 L
Carbon Dioxide 31 H
BUN 16
Creatinine 0.6
Glucose 99
Calcium 9.1
Total Bilirubin 1.0
AST 39 H
ALT 41 H
Alkaline Phosphatase 93
Vital Signs:
Vital Signs
Temp Pulse Resp BP Pulse Ox
97.4 F 78 15 120/67 95
11/19/23 03:22 11/19/23 00:00 11/19/23 00:00 11/19/23 00:00 11/19/23 00:56
I&O
11/18/23 11/19/23 11/20/23
06:59 06:59 06:59
Intake Total 480 / 480 920 / 920
Output Total 1250 / 1250 1930 / 1930
Balance -770 / -770 -1010 / -1010
Review of Systems
-
History Source: Patient
All other systems: Reviewed and negative
Physical Exam
-
General: No Apparent Distress
HEENT: PERRLA
Respiratory: Rales and Rhonchi
GI: Soft and Nontender
Musculoskeletal: Edema, Right Lower Extrem and Edema, Left Lower Extrem
Skin: Warm and Dry; Negative Rash
Neuro: AO x 3
Psych: Calm
Data Reviewed
-
Diagnostic Radiology: Report Reviewed by me
Labs: Labs Reviewed by me
[2023-11-19] MEDS: DUONEB 3 ML INH ×4 (08:12→19:59)
[2023-11-19] MEDS: LASIX 40 MG IV (08:39)
[2023-11-19] MEDS: COREG 6.25 MG PO ×2 (08:40→20:46)
[2023-11-19] MEDS: ZESTRIL 2.5 MG PO (08:40)
[2023-11-19] MEDS: VIBRAMYCIN 100 MG PO ×2 (08:40→20:46)
--- NOTE | 2023-11-19 09:19 | PTCARENOTE ---
Patient coughed up two dark red blood clots this morning. Dr. Gill notified.
--- NOTE | 2023-11-19 10:36 | W.PN.CARDCBS ---
Today's Communication / Plan
-
Given 1 additional dose of IV Lasix today. Then continue oral. Nearing euvolemic status.
INR stable at 2.47. Continue warfarin 1 mg.
Increase activity
Continue treatment of pneumonia
Impression / Plan
-
PCP: Dr. Sparks
Cardiology: Dr. Laura at [facility]
Impression:
Presented 11/14/2023 with SOB, fever and elevated blood pressure
Acute HFpEF
HTN emergency
Elevated Troponin
Recent admission for fall and right hip fracture 10/12/23 until 10/24/23
s/p ORIF right hip fracture 10/12/23
Right knee hematoma due to fall 10/12/23
Permanent Afib
Chronic warfarin OAC managed by [facility]
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
h/o hypertension
Hyperlipidemia
Echo 03/2023: AMS study, EF 55-60%, mod MR, mod TR
Echo 11/14/23: EF 50-55%, no WMA, mod MR, mild to mod with peak/mean 19/10 mmHg, sev TR with PAP 69 mmHg
Plan:
Presented 11/14/2023 with SOB, fever and elevated blood pressure. Found to have acute HFpEF and possible pneumonia.
Acute on chronic heart failure
-ProBNP 2280 on admission diuresed and then diuretic held because of hypotension. Over the weekend proBNP 5000 (11/18/2023). Receiving oral Lasix and has received 2 doses of IV Lasix (20 mg IV 11/18, 40 mg of IV 11/19). Blood pressure stable and she
is nearing euvolemic status.
-11/17/2023 I had reduced carvedilol dose. Heart rate stable in atrial fibrillation.
-Developed hypotension 11/15/23 and Lasix placed on hold, last dose 11/15/2023 in am. None given 11/16/23 .
-EF 50-55% by echo with mod MR which is stable compared to echo with her primary power distributor in 03/2023. Mild to mod not mentioned in previous echo.
-Abnl LFTs, stable/improved
-I ordered Jonah wrap's which may be helpful for edema and low blood pressure.
Pneumonia with acute hypoxic respiratory insufficiency
-Doing better with no further fevers. Leukocytosis improved.
-Continues with significant cough.
-Prior CXR with suggestion of LLL pneumonia
-Started on ceftriaxone and doxycycline 11/15/2023
-Not currently requiring oxygen
-ECG with prolonged QT although U waves present, avoid QT prolonging medication.
Permanent Afib.
-Amiodarone started last admission due to hypotension and rapid rates, but stopped this admission to allow for uptitration of Coreg.
-Increased Coreg to 12.5 mg BID 11/14/23. Now back down to 6.25 mg twice daily.
-Rates are reasonably controlled.
-Warfarin had been on hold since 11/14 due to supratherapeutic INR at 4.3.
-INR is now stable at 2.47. Warfarin started 11/18 at 1 mg. Continue to follow while on antibiotics.
-INRs managed by [facility] using a home monitor. INR goal is 2-3. Patient has not switched to NOAC in the past because warfarin is her preference.
-Patient with h/o CVA in the setting of FFP reversal and subtherapeutic INR after appendectomy in 2017. Patient will need to be bridged with heparin if INR is less than 2.
-Peak Troponin 1.01. No chest pain and ECG without acute ischemic change. No WMA on echo. Will manage as a likely nonischemic myocardial injury Troponin elevation due to acute HF and HTN emergency.
HPI: Patient came to [facility] from [facility] early this morning with HTN and SOB, patient now admitted with acute HF and cardiology has been consulted. Patient follows with Dr. Laura at [facility] and was seen 08/10/23 and no medication changes
at that time. Patient then had a mechanical fall at home and presented to [facility] with a right hip fracture on 10/17/23. Patient was admitted and bridged with Heparin while her INR drifted down. Patient's INR was not reversed due to h/o CVA with FFP
reversal in the setting of appendectomy in 2017. 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 Since then patient has been bridged with Lovenox. Following right hip ORIF the patient was bridged back to
therapeutic INR and then sent to the [facility] for rehab. Patient reports that she is making good progress in rehab, but started with increasing SOB and cough and [facility] nursing noted increasing HTN with BPs of 205/110 and then in the
ER 156/90. Patient was given Lasix 40 mg IV x1 in the ER and reports improved SOB, but ongoing cough. BP has improved and patient was given extra dose of lisinopril 2.5 mg and Lasix 20 mg at [facility] last night.
Progress Note - Emergency Care Tech
Subjective
Date of Service: November 19, 2023
She still has cough. She denies chest pain and palpitations. Edema has improved.
Objective
Labs:
11/19/23 04:31
11/19/23 04:31
Labs
Hgb 10.3 g/dL (12.0-16.0) L 11/19/23 04:31
Hct 31.6 % (37.0-47.0) L 11/19/23 04:31
Plt Count 208 10^3/uL (130-400) 11/19/23 04:31
PT 26.6 Sec (11.4-14.6) H 11/19/23 04:31
INR 2.47 11/19/23 04:31
Sodium 135 mmol/L (135-145) 11/19/23 04:31
Potassium 4.1 mmol/L (3.5-5.1) 11/19/23 04:31
BUN 16 mg/dl (7-17) 11/19/23 04:31
Creatinine 0.6 mg/dL (0.6-1.0) 11/19/23 04:31
Glucose 99 mg/dl (70-99) 11/19/23 04:31
Vital Signs and I&O:
Vital Signs
Temp Pulse Resp BP Pulse Ox
98.5 F 95 16 115/52 93
11/19/23 07:30 11/19/23 08:40 11/19/23 08:38 11/19/23 08:40 11/19/23 09:15
Vital Signs
Temp Pulse Resp BP Pulse Ox
98.5 F 95 16 115/52 93
11/19/23 07:30 11/19/23 08:40 11/19/23 08:38 11/19/23 08:40 11/19/23 09:15
Intake & Output
11/17/23 11/18/23 11/19/23 11/20/23
06:59 06:59 06:59 06:59
Intake Total 240 / 240 480 / 480 920 / 920 120 / 120
Output Total 500 / 500 1250 / 1250 1930 / 1930
Balance -260 / -260 -770 / -770 -1010 / -1010 120 / 120
Physical Exam
Physical Exam
General: Well developed, well nourished in NAD.
Heart: Distant and irregular
Lungs: Decreased at bases with coarse rhonchi
Abdomen: Normal bowel sounds, soft, non-tender, non-distended.
Extremities: No clubbing, cyanosis and trace edema bilaterally.
Neuro: Grossly nonfocal, awake, alert
[2023-11-19] MEDS: STERILE WATER FOR INJECTION 10 ML IV (11:29)
[2023-11-19] MEDS: ROCEPHIN 1000 MG IV (11:29)
--- NOTE | 2023-11-19 14:01 | PN.CDI ---
CDI
- -
CDI:
Physician Documentation Request
Admit Date: 11/14/23 06:26
Dear Doctor Bridget,
Patient admitted with elevated BP.
11/19 PN, 'Sepsis...hypotension...resolved s/p Levophed....'
Selected Entries
11/15/23
11:32 11/15/23
14:24 11/15/23
14:25
MAP (cuff-Chan Monitor) [id number] [phone] [id number]
11/15/23
14:31 11/15/23
14:33 11/15/23
20:13
MAP (cuff-Chan Monitor) 53 [phone] 57
Please clarify which of the following is the most likely etiology of the above symptoms and treatment rendered:
Septic shock
Hypotension only
Other
Use of terms such as suspected, likely, concern for, or probable (associated with a specific diagnosis that is being evaluated, monitored, or treated as if it exists) are acceptable and can be coded in the inpatient setting, when documented at the
time of discharge.
Thank you,
Indira POLLOCK,RN,CCDS
CDI Specialist
Available via [employer] text
Please use your independent medical judgment in providing your response.
--- NOTE | 2023-11-19 17:27 | CM ---
Patient from [facility] with Dx Acute hypoxic respiratory failure, Sepsis, CAP, HF. Room air. PT & OT recommend skilled rehab. Seen by wound care nurse.
Spoke with [facility]; they are able to accept the patient back for rehab when medically ready. Patient may be ready for d/c in 1-2 days per hospitalist. Referral updated in [employer]. The ph for report [phone] x [phone],
fax [phone].
Plan [facility] when medically ready.
[2023-11-19] MEDS: COUMADIN 1 MG PO (17:44)
[2023-11-19] MEDS: PHENERGAN WITH CODEINE SYRUP 5 ML PO (20:46)
[2023-11-20] VITALS (7 sets, daily range): BP systolic 81–141; BP diastolic 64–89; BMI 25.7
--- NOTE | 2023-11-20 04:21 | PTCARENOTE ---
Received pt at change of shift. Removed shanon bandages for the night. Pt noted to have LE pitting edema. VSS at this time. Pt desatted while sleeping to low 80s. Currently on 3L NC ranging from 94-99%. Pt resting comfortably in bed with call
clements in reach.
[2023-11-20] MEDS: DUONEB 3 ML INH ×2 (07:35→11:34)
--- NOTE | 2023-11-20 07:50 | W.PN.HOSP.TC ---
Today's Communication/Plan
-
awaiting AM labs
F/U further cardiology recs
possible DC today
Assessment / Plan
Assessment / Plan
HPI: 83 y/o F PMH Permanent Atrial Fibrillation, prior CVA, hypertension, recent R hip partial replacement 1 month ago after fall; presented from [facility] for elevated BP (205/110). She was given extra dose of Lasix/lisinopril around 2300
- currently BP stable in the ED. Patient c/o SOB, mild cough, weight gain and significant BL LE edema. She denies to CP, palpitations, abd pain, fever, chills etc.
She is complaining of increased urinary frequency likely due to Lasix given.
#Acute hypoxic respiratory failure
#Sepsis
#Community-acquired pneumonia
weaned down from 12L of oxygen; on RA during daytime
placed on O2 overnight - sleep study as outpatient
sputum culture w/ normal magda, urine Legionella and strep antigens neg
Continue Rocephi (--> cefdinir) /doxycycline day 03/07
#Hypotension
Lactic acid 1.3
Resolved s/p levophed, BP stable off midodrine
#QT prolongation
Avoid Zofran and other QT prolonging agents
#Acute heart failure with preserved ejection fraction
Echocardiogram reviewed, s/p IV lasix
Oral lasix resumed 11/17
s/p additional lasix on 11/19 - patient appears euvolemic with significant weight loss
Resumed lisinopril and Coreg
#Hypokalemia
Repleted and resolved
#Moderate mitral regurgitation
#Severe tricuspid regurgitation
#Pulmonary hypertension
# Hypertensive urgency, followed by hypotension
ER blood pressure was 205/110
Blood pressure improved, resumed lasix, lisinopril and Coreg
# Troponin elevation, likely non-MN and related to acute CHF
Patient is chest pain-free
EKG noted A-fib rate controlled
# Elevated LFT likely due to hepatic congestion
Improving
ok to resume statin - stable
# Permanent Atrial Fibrillation
# History of Embolic CVA
# Coumadin Coagulopathy
continue coumadin dosing
daily INR
Patient follows up with Dr. Laura at [facility]
#Known PVD
Statin/anticoagulation as above
Follow-up with vascular surgery outpatient
# Recent Right Hip Fracture s/p right hip hemiarthroplasty on October 17, 2023
Weightbearing as tolerated to right lower extremity
Continue PT/OT eval, she is from [facility]
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
Code Status: Full
Updated at bedside 11/16
Physical Exam
General: Appears acutely ill, no acute distress
HEENT: Normocephalic, Atraumatic, EOMI, MMM
Respiratory: Clear to Auscultation bilaterally
Cardiac: Normal S1/S2, irregularly irregular
GI: Soft, Nontender, Nondistended, Normal Bowel Sounds
Extremities: No Clubbing, Cyanosis
Bilateral lower extremity edema noted
Musculoskeletal: Right knee with resolving ecchymosis, right hip incision healing
Anticipated Discharge: Within 24 hours
Subjective/Interval History
-
Date of Service: November 20, 2023
feeling better than yesterday
urinated a lot
feels ready to leave the hospital
Objective Data
-
Labs:
Laboratory Results
11/20/23
05:28
PT Pending
INR Pending
Sodium Pending
Potassium Pending
Chloride Pending
Carbon Dioxide Pending
BUN Pending
Creatinine Pending
Glucose Pending
Calcium Pending
Total Bilirubin Pending
AST Pending
ALT Pending
Alkaline Phosphatase Pending
Vital Signs:
Vital Signs
Temp Pulse Resp BP Pulse Ox
97.9 F 79 20 81/67 96
11/20/23 07:44 11/20/23 07:35 11/20/23 07:35 11/20/23 02:23 11/20/23 07:35
I&O
11/19/23 11/20/23 11/21/23
06:59 06:59 06:59
Intake Total 920 / 920 440 / 440
Output Total 1929 / 1929 1899 / 1899
Balance -1010 / -1010 -1460 / -1460
Review of Systems
-
History Source: Patient
All other systems: Reviewed and negative
Physical Exam
-
General: No Apparent Distress
HEENT: PERRLA
Respiratory: Rales
Cardiac: Regular Rhythm and S1/S2; Negative JVD
GI: Soft and Nontender
Musculoskeletal: Other (edema improved)
Skin: Warm and Dry; Negative Rash
Neuro: AO x 3
Psych: Calm
Data Reviewed
-
Diagnostic Radiology: Report Reviewed by me
Labs: Labs Reviewed by me
[2023-11-20 08:23] LABS: INR 2.21; PT 24.4 Sec (11.4-14.6)
[2023-11-20] MEDS: COREG 6.25 MG PO (08:57)
[2023-11-20] MEDS: VIBRAMYCIN 100 MG PO (08:57)
[2023-11-20] MEDS: ZESTRIL 2.5 MG PO (09:00)
[2023-11-20] MEDS: OMNICEF 300 MG PO (09:00)
[2023-11-20 09:24] LABS: ALT (SGPT) 38 U/L (0-35); AST (SGOT) 38 U/L (14-36); Alkaline Phosphatase 99 U/L (38-126); Blood Urea Nitrogen 16 mg/dl (7-17); Calcium 9.1 mg/dl (8.4-10.2); Carbon Dioxide 34 mmol/L (22-30); Chloride 95 mmol/L (98-107); Estimated Creatinine Clearance 66 ml/min; Glucose 79 mg/dl (70-99); Sodium 135 mmol/L (135-145); Total Protein 5.8 g/dl (6.3-8.2); eGFR > 60.00
--- NOTE | 2023-11-20 09:50 | W.PN.CARDCBS ---
Today's Communication / Plan
-
She appears euvolemic after receiving additional IV lasix.
Cont lasix 40 mg daily. ProBNP 2280 on admission diuresed and then diuretic held because of hypotension and pBNP increased to 5000 (11/18/2023). Receiving oral Lasix and received 2 doses of IV Lasix (20 mg IV 11/18, 40 mg of IV 11/19).
BMP one week as outpt
Remains with stable HR in perm AFib. Cont Coreg. Cont coumadin, which is pt preference. INR stable. Monitor given abx.
INRs managed by [facility] using a home monitor. INR goal is 2-3. Patient has not switched to NOAC in the past because warfarin is her preference.
-Patient with h/o CVA in the setting of FFP reversal and subtherapeutic INR after appendectomy in 2016.
Echo with preserved EF. Outpt follow up of MR and .
Cont med therapy of nonMI trop.
Outpt follow up with per primary sheet combining operator at [facility].
Stable from cardiac standpoint
Please recall if needed
Impression / Plan
-
PCP: Dr. Sparks
Cardiology: Dr. Laura at [facility]
Impression:
Presented 11/14/2023 with SOB, fever and elevated blood pressure
Acute HFpEF, improved
HTN emergency, improved
Elevated Troponin
Recent admission for fall and right hip fracture 10/12/23 until 10/24/23
s/p ORIF right hip fracture 10/12/23
Right knee hematoma due to fall 10/12/23
Permanent Afib
Chronic warfarin OAC managed by [facility]
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
h/o hypertension
Hyperlipidemia
Echo 03/2023: AMS study, EF 55-60%, mod MR, mod TR
Echo 11/14/23: EF 50-55%, no WMA, mod MR, mild to mod with peak/mean 19/10 mmHg, sev TR with PAP 69 mmHg
Plan:
Presented 11/14/2023 with SOB, fever and elevated blood pressure. Found to have acute HFpEF and possible pneumonia.
She appears euvolemic after receiving additional IV lasix.
Cont lasix 40 mg daily. ProBNP 2280 on admission diuresed and then diuretic held because of hypotension and pBNP increased to 5000 (11/18/2023). Receiving oral Lasix and received 2 doses of IV Lasix (20 mg IV 11/18, 40 mg of IV 11/19).
BMP one week as outpt
Remains with stable HR in perm AFib. Cont Coreg. Cont coumadin, which is pt preference. INR stable. Monitor given abx.
INRs managed by [facility] using a home monitor. INR goal is 2-3. Patient has not switched to NOAC in the past because warfarin is her preference.
-Patient with h/o CVA in the setting of FFP reversal and subtherapeutic INR after appendectomy in 2016.
Echo with preserved EF. Outpt follow up of MR and .
Cont med therapy of nonMI trop.
Outpt follow up with per primary sheet combining operator at [facility].
Stable from cardiac standpoint
Please recall if needed
Reviewed with primary service.
HPI: Patient came to [facility] with HTN and SOB, patient now admitted with acute HF and cardiology has been consulted. Patient follows with Dr. Laura at [facility] and was seen 08/10/23 and no medication changes
at that time. Patient then had a mechanical fall at home and presented to [facility] with a right hip fracture on 10/17/23. Patient was admitted and bridged with Heparin while her INR drifted down. Patient's INR was not reversed due to h/o CVA with FFP
reversal in the setting of appendectomy in 2017. 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 Since then patient has been bridged with Lovenox. Following right hip ORIF the patient was bridged back to
therapeutic INR and then sent to the [facility] for rehab. Patient reports that she is making good progress in rehab, but started with increasing SOB and cough and [facility] nursing noted increasing HTN with BPs of 205/110 and then in the
ER 156/90. Patient was given Lasix 40 mg IV x1 in the ER and reports improved SOB, but ongoing cough. BP has improved and patient was given extra dose of lisinopril 2.5 mg and Lasix 20 mg at [facility] last night.
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
Subjective
Date of Service: November 20, 2023
Pt seen and examined. No cp.
Objective
Labs:
11/19/23 04:31
11/20/23 05:28
Labs
Hgb 10.3 g/dL (12.0-16.0) L 11/19/23 04:31
Hct 31.6 % (37.0-47.0) L 11/19/23 04:31
Plt Count 208 10^3/uL (130-400) 11/19/23 04:31
PT 24.4 Sec (11.4-14.6) H 11/20/23 05:28
INR 2.21 11/20/23 05:28
Sodium 135 mmol/L (135-145) 11/20/23 05:28
Potassium 4.0 mmol/L (3.5-5.1) 11/20/23 05:28
BUN 16 mg/dl (7-17) 11/20/23 05:28
Creatinine 0.6 mg/dL (0.6-1.0) 11/20/23 05:28
Glucose 79 mg/dl (70-99) 11/20/23 05:28
Vital Signs and I&O:
Vital Signs
Temp Pulse Resp BP Pulse Ox
97.9 F 105 20 110/64 96
11/20/23 07:44 11/20/23 09:00 11/20/23 07:35 11/20/23 09:00 11/20/23 07:35
Vital Signs
Temp Pulse Resp BP Pulse Ox
97.9 F 105 20 110/64 96
11/20/23 07:44 11/20/23 09:00 11/20/23 07:35 11/20/23 09:00 11/20/23 07:35
Intake & Output
11/18/23 11/19/23 11/20/23 11/21/23
06:59 06:59 06:59 06:59
Intake Total 480 / 480 920 / 920 440 / 440
Output Total 1250 / 1250 1930 / 1930 1900 / 1900
Balance -770 / -770 -1010 / -1010 -1460 / -1460
Physical Exam
Physical Exam
General: No acute distress, AAOX3
Neck: Negative JVD
Heart: Irregularly irregular, Negative S3 positive S1/S2, Negative S4, No murmur
Lungs: CTA b/l, negative wheezes/rales/rhonchi
Abd: Positive BS, NT/ND, neg rebound/rigidity/guarding
Ext: Negative cyanosis/clubbing/edema
Neuro: nonfocal
--- NOTE | 2023-11-20 10:43 | CM ---
CM reviewed pt with Dr Gill- ready for dc
Return SNF bed confirmed with [facility] admissions
Bedside meeting with pt and spouse- in agreement with plan
IMM verbally reviewed- copy provided
Medical necessity and transport form on chart
BLS to be arranged by unit for new O2 needs and 2 person status
Discharge Disposition- return [facility] via ambulance
Phone- [phone] ext. [phone] Fax- [phone]
--- NOTE | 2023-11-20 11:01 | W.DS.TRANS ---
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
-
Discharge Instructions:
Sleep Apnea Risk Low
Discharge Diagnosis/Procedures community acquired pneumonia, acute exacerbation
heart failure preserved ejection fraction
Diet Restrict fluids to 48 oz,2 Gram Sodium
Activity As tolerated
Driving Restrictions As prior to admission
Bathing Restrictions None
Blood Work BMP in one week
INR in 2 days
Other Services PT,OT
Specialty Instructions Weigh Daily
Stop these medications: stop oxycodone (you have not needed it here).
stop amiodarone.
stop lasix 20mg, this is replaced with lasix
40mg daily.
Instructions: *PCP/Other Subject Scientific Research Heart Failure Instructions
Stand-Alone Forms:
Changes to Home Medications: Yes
Discharge Medications:
DC Medications w/original date entered in [facility]
acetaminophen 500 mg tablet (Tylenol Extra Strength) 500 mg PO HSPRN PRN pain/sleep 10/18/17
atorvastatin 80 mg tablet 80 mg PO DAILY@1700 High Cholesterol 10/18/17
carvedilol 6.25 mg tablet 6.25 mg PO BID@0800,1700 Heart Failure 10/18/17
cholecalciferol (vitamin D3) 25 mcg (1,000 unit) tablet 1,000 units PO DAILY Supplement 10/18/17
multivitamin with folic acid 400 mcg tablet (Tab-A-Mick) 1 tab PO DAILY Supplement 10/18/17
Probiotic 250 mg PO DAILY Supplement 10/13/23
lisinopril 2.5 mg tablet 2.5 mg PO DAILY Blood Pressure 10/13/23
warfarin 3 mg tablet 3 mg PO SUTUFR Blood Clot Prevention/Tx 10/13/23
warfarin 2 mg tablet 2 mg PO SUTUTHSA Blood Clot Prevention/Tx 11/14/23
acetaminophen 500 mg tablet (Pain Relief Extra Strength (acetaminophen)) 1,000 mg PO TID PRN Pain #30 tabs 11/20/23
cefdinir 300 mg capsule 300 mg PO Q12 #3 caps 11/20/23
doxycycline hyclate 100 mg capsule 100 mg PO Q12 #3 caps 11/20/23
furosemide 40 mg tablet 40 mg PO DAILY #30 tabs 11/20/23
ipratropium 0.5 mg-albuterol 3 mg (2.5 mg base)/3 mL nebulization soln 3 ml inhalation R Q4HPRN PRN wheezing/dyspnea #90 mL 11/20/23
promethazine 6.25 mg-codeine 10 mg/5 mL syrup 5 ml PO HSPRN PRN cough #118 mL 11/20/23
Home Medication Changes
You have 1.5 more days of antibiotics Cefdinir and Doxycycline.
Your lasix dose is increased from 20mg to 40mg daily.
You INR will be monitored closely at [facility] - continue coumadin
nebs PRN
stop amio
stop oxycodone (did not require in hospital)
Pending Results: No
[2023-11-20] MEDS: STERILE WATER FOR INJECTION IV (12:15)
--- NOTE | 2023-11-20 14:55 | W.DCSUMMARY ---
Discharge Summary
Discharge Data
Date of Admission: 11/14/23
Date of Discharge: 11/20/23
-
Pending Results: No
Hospital Course
Discharging Physician : Dr. Paola Gill
Disposition : SNF
Primary care physician : Dr. Mike Sparks
Principal Discharge diagnosis : community aquired pneumonia; heart failure preserved ejection fraction acute exacerbation
Hospital Course :
Ms. Jalyn Faustin is a 83 yo woman with hx permanent atrial fibrillation, prior CVA, HTN, right hip partial replacement one month ago presents from [facility] for shortness of breath, weight gain and finding of elevated blood pressure
205/110. Triage vitals notable for hypoxemia requiring supplemental O2. Labs with normal renal function, INR 4.28. Patient was found to be in acute heart failure exacerbation. She was admitted to medicine with cardiology consulting and diuresed.
Hospital course complicated be fever with finding of CAP. She was started on IV Ceftriaxone/Doxycycline. She developed hypotension/ septic shock with infection and required brief period of Levophed. Her blood pressure normalized and she was
resumed on her home anti-HTN medications prior to discharge.
Patient's oxygen was weaned to room air prior to discharge. Patient has 1.5 more days of antibiotics to complete at SNF. Her weight on day of discharge was 70kg.
Per cardiology, her amiodarone was stopped. She remains on coumadin and her INR will be closely monitored at SNF. She should follow up closely with her outpatient communication engineer.
Time spent on discharge was 35 minutes.
Important imaging findings :
TTE 11/14/23
CONCLUSIONS
�Normal left ventricular size. Low normal left ventricular systolic function.
�Estimated ejection fraction is 50-55% by Partida's method of discs. No gross
�regional wall motion abnormalities. Mild concentric left ventricular
�hypertrophy. Diastolic function indeterminate due to atrial fibrillation.
�Normal right ventricular size. Low normal right ventricular function.
�Severely dilated atria
�Moderate mitral regurgitation.
�Thickened and calcified trileaflet aortic valve with restricted leaflet motion.
�Mild to moderate aortic stenosis.� Peak/mean gradients across the aortic valve
�are 19/10 mmHg, respectively.�
�Severe tricuspid regurgitation. Estimated pulmonary artery pressure of 69 mmHg
�assuming a right atrial pressure of 8 mmHg.
�
�No prior study for comparison
�
�Indications:
�heart failure
Procedure findings :
Discharge Plan
-
Patient Disposition: Snf/SNF
Discharge Diagnosis/Procedures: community acquired pneumonia, acute exacerbation heart failure preserved ejection fraction
Condition: Fair
Diet: 2 Gram Sodium and Restrict fluids to 48 oz
Activity: As tolerated
Driving Restrictions: As prior to admission
Bathing Restrictions: None
Blood Work: BMP in one week
INR in 2 days
Other Services: PT and OT
Specialty Instructions: Weigh Daily- Call MD for wt gain/loss 3 lbs overnight/5 lbs in 1 week
Stop these medications:: stop oxycodone (you have not needed it here).
stop amiodarone.
stop lasix 20mg, this is replaced with lasix 40mg daily.
Activity Restrictions/Additional Instructions:
Wound Care Instructions
R knee resolving broken blister-clean with saline, Xeroform gauze, cover with bordered dressing (i.e. Silicone border foam), change daily.
Follow up with your orthopedic surgeon.
Elevate heels off bed with pillow/s.
Follow up at wound care center if needed, call for an appointment.
Follow up with your communication engineer, Dr. Laura at [facility] at next available appointment
You have 1.5 more days of antibiotics Cefdinir and Doxycycline.
Your lasix dose is increased from 20mg to 40mg daily.
You INR will be monitored closely at [facility]
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
Referrals:
Mike Sparks MD [Family Provider] - in less than 1 week
Prescriptions:
New
ipratropium-albuterol 0.5 mg-3 mg(2.5 mg base)/3 mL Solution For Nebulization
3 ml inhalation R Q4HPRN PRN (Reason: wheezing/dyspnea) Qty: 90 0RF
furosemide 40 mg Tablet
40 mg PO DAILY Qty: 30 0RF
promethazine-codeine 6.25-10 mg/5 mL Syrup
5 ml PO HSPRN PRN (Reason: cough) Qty: 118 0RF
cefdinir 300 mg Capsule
300 mg PO Q12 Qty: 3 0RF
doxycycline hyclate 100 mg Capsule
100 mg PO Q12 Qty: 3 0RF
Continued
carvedilol 6.25 MG tablet
6.25 mg PO BID@0800,1700
acetaminophen [Tylenol Extra Strength] 500 MG tablet
500 mg PO HSPRN PRN (Reason: pain/sleep)
cholecalciferol (vitamin D3) 1,000 UNITS tablet
1,000 units PO DAILY
multivitamin with folic acid [Tab-A-Mick] 1 TABLET tablet
1 tab PO DAILY
atorvastatin 80 MG tablet
80 mg PO DAILY@1700
warfarin 3 mg Tablet
3 mg PO SUTUFR@1800
Hold Instructions: Resume on 10/25/23. RESTART ONCE INR IN 2-3 RANGE
lisinopril 2.5 mg tablet
2.5 mg PO DAILY
Probiotic
250 mg PO DAILY
warfarin 2 mg Tablet
2 mg PO MOWETHSA@1800
Changed
acetaminophen [Pain Relief ES (acetaminophen)] 500 mg tablet
1,000 mg PO TID PRN (Reason: Pain) Qty: 30 0RF
Discontinued
furosemide 20 mg tablet
20 mg PO DAILY
amiodarone [Pacerone] 200 mg Tablet
200 mg PO BID Qty: 60 0RF
oxycodone 5 mg Tablet
5 mg PO Q4HPRN PRN (Reason: mod sev pain) Qty: 14 0RF
dextromethorphan-guaifenesin [Robitussin-DM] 10-100 mg/5 mL Syrup
10 ml PO Q4H PRN (Reason: cough)
warfarin 1 mg Tablet
1 mg PO DAILY
Discharge Orders:
Discharge Patient (As Directed); Ordered 11/20/23
Ordered By: Paola Gill
Care Plan Goals
Care Plan Goals:
Problem: Readiness for enhanced knowledge related to diagnosis and treatment plan
Goal: Understand your diagnosis and treatment plan needs, including medications if applicable.
Instructions: Know your diagnosis, underlying causes and treatment plan options, including medications if applicable. Consult with your health care team to learn about your diagnosis and treatment plan, including medications if applicable.
Discharge Date and Time
Discharge Date/Time: 11/20/23 13:01
== END 2023-11-20 13:01 | DRG 871 ==
LOC: IMU 06:26
PROVIDERS: Family Medicine; Nurse Practitioner Family; ADMITTING PHYSICIAN Internal Medicine; ATTENDING PHYSICIAN Student in an Organized Health Care Education/Training Program; CONSULT PHYSICIAN Internal Medicine Cardiovascular Disease; EMERGENCY PHYSICIAN Student in an Organized Health Care Education/Training Program; FAMILY PHYSICIAN Family Medicine
DX: A41.89 Other specified sepsis (principal); I50.33 Acute on chronic diastolic (congestive) heart failure; R65.21 Severe sepsis with septic shock; J18.9 Pneumonia, unspecified organism; J96.01 Acute respiratory failure with hypoxia; I48.21 Permanent atrial fibrillation; I5A Non-ischemic myocardial injury (non-traumatic); I11.0 Hypertensive heart disease with heart failure; I16.0 Hypertensive urgency; I08.3 Combined rheumatic disorders of mitral, aortic and tricuspid valves; T45.515A Adverse effect of anticoagulants, initial encounter; R79.1 Abnormal coagulation profile; I27.20 Pulmonary hypertension, unspecified; Z86.73 Personal history of transient ischemic attack (TIA), and cerebral infarction without residual deficits; Z79.01 Long term (current) use of anticoagulants
CPT/HCPCS: 71046; 80053; 81003; 81015; 83605; 83735; 83880; 84484; 85025; 85027; 85610; 87070; 87086; 87205; 87449; 87502; 87811; 87899; 93005; 93306; 94640; 96374; 97110; 97116; 97163; 97167; 97530; 97535; 99285

== ENCOUNTER → 2023-12-24 13:47 | Outpatient (REF) | payer MEDICARE, SELFPAY | LOC: RAD 13:47 | PROVIDERS: ATTENDING PHYSICIAN Surgery Vascular Surgery; FAMILY PHYSICIAN Family Medicine | DX: I73.9 Peripheral vascular disease, unspecified (principal) | CPT/HCPCS: 93922; 93925 ==

== ENCOUNTER → 2024-03-04 14:10 | Outpatient (REF) | payer MEDICARE, SELFPAY | LOC: HWWDC 14:10 | PROVIDERS: ATTENDING PHYSICIAN Obstetrics & Gynecology Gynecology; FAMILY PHYSICIAN Family Medicine | DX: Z12.31 Encounter for screening mammogram for malignant neoplasm of breast (principal) | CPT/HCPCS: 77063; 77067 ==

== ENCOUNTER 2024-08-06 03:51 | Inpatient (IN) | payer MEDICARE, SELFPAY ==
[2024-08-05 23:12] VITALS: BP 177/107; BP 185/90
[2024-08-05 23:13] VITALS: BP 185/90
[2024-08-06] VITALS (13 sets, daily range): BP systolic 77–163; BP diastolic 42–86; BMI 28.4; BMI 27.1
--- NOTE | 2024-08-06 00:07 | ED.GENMED ---
History of Present Illness
General
Chief Complaint: Musculo-Skeletal Complaint
Source: patient
Exam Limitations: none
Time Seen by Provider: 08/05/24 23:12
History of Present Illness
History of Present Illness:
This is a 83 year old female that comes in with c/o left hip and thigh pain. States that she just moved into there apartment about 1 week ago. States that she had clothing on the bed and it was getting late. States that she was moving them from the
bed to the chair. States that she was walking around the corner of the bed to go out and her foot stuck and she fell. States that she landed on the left hip and rolled to her back. States that she has pain from the left hip down to the knee. Denies
hitting her head or any LOC. Denies any fever, chills, chest pain, SOB, abd pain, nausea, vomiting, diarrhea, headache, dizziness, urinary burning.
Past History
Past History
ED Past Medical History: Arrthythmia (Atrial fibrillation), CVA, HTN, Hypercholesterolemia and Other (Back pain, PNA, )
ED Past Surgical History: Appendectomy, Cholecystectomy, Gynecological (RAFA/BSO), Orthopedic (Partial right hip replacement) and Other (Cataracts, )
Social History
Tobacco: Non-smoker
Alcohol: None
Drug: None
Personal:
Living: with family
Family History
Family History: Hypertension
Review of Systems
Review of Systems
All Other Systems: ROS reviewed and negative except as documented in HPI and ROS
Constitutional: Reports no symptoms; Denies fever or chills
EENT: Reports no symptoms
Respiratory: Reports no symptoms; Denies cough or trouble breathing
Cardiac: Reports no symptoms; Denies chest pain
ABD/GI: Denies abdominal pain, nausea, vomiting or diarrhea
: Reports no symptoms; Denies dysuria, frequency or urgency
Musculoskeletal: Reports joint pain (Left hip and thigh pain)
Skin: Reports no symptoms
Neurological: Reports no symptoms; Denies dizzy or headache
Psychiatric: Reports no symptoms
Phy Exam
General Physical Exam
General Presentation: mild distress
General age: appears stated age
General Skin: warm and dry
General Habitus: elderly
General Mental: alert
General Hydration: appears well hydrated
ENT Exam
ENT Exam: TM's normal, pharynx normal and neck supple
Eye Exam
Eye Exam: EOMI
Cardiovascular Exam
Cardiovascular Exam: normal peripheral pulses and irregularly irregular
Pulmonary Exam
Pulmonary Exam: lungs clear, no respiratory distress, no rales, chest non tender, no crackles, no rhonchi, no wheezing and no cough
Gastrointestinal Exam
Gastrointestinal Exam: normal bowel sounds, non tender, soft, no organomegaly, no pulsatile mass and non distended
Musculoskeletal Exam
Musculoskeletal Exam: edema (Lower legs +1pitting) and other (Patient able to bend right knee without any discomfort. Negative for cervical neck tenderness or shoulder discomfort. Discomfort with slight flexion of the left knee in the left hip. Left
hip tender to palpation)
Skin Exam
Skin Exam: normal color, warm/dry, no rash and no petechia
Psychiatric Exam
Psychiatric Exam: normal mood/affect
Course
Orders/Labs/Results
Orders:
Orders
08/06/24 00:06
Femur, Left 2 View [CR Femur - Left Min 2 Vw] Urgent
Comment:
Reason For Exam: fall pain mid thigh
Hip, Left 2-3 Views [CR Hip - LT w/wo Pel 2-3 Vw*] Urgent
Comment:
Reason For Exam: Fall hip pain
Include a pelvis x-ray?: Yes
08/06/24 00:10
Morphine Sulfate 2 mg IV NOW STA
08/06/24 00:32
Complete Blood Count/With Diff Urgent
Comprehensive Metabolic Panel Urgent
Prothrombin Time Urgent
Abnormal Lab Results
08/06/24
00:32
RBC 3.46 L 10^6/uL
(4.20-5.40)
Hgb 11.0 L g/dL
(12.0-16.0)
Hct 33.0 L %
(37.0-47.0)
MCH 31.8 H pg
(27.0-31.0)
Abs Immat Gran (auto) 0.1 H 10^3/uL
(0-0.05)
Absolute Monos (auto) 0.9 H 10^3/uL
(0.1-0.6)
Immature Gran % 0.6 H %
(0-0.5)
Lymphocytes % 13.7 L %
(20.5-51.1)
Monocytes % 10.1 H %
(1.7-9.3)
PT 27.5 H Sec
(11.4-14.6)
BUN 23 H mg/dl
(7-17)
Glucose 100 H mg/dl
(70-99)
AST 49 H U/L
(14-36)
ALT 61 H U/L
(0-35)
Total Protein 6.2 L g/dl
(6.3-8.2)
08/06/24 00:32
08/06/24 00:32
H/H slightly low ( improved from prior labs), PT 27.5 with INR 2.57, Dehydration. Glucose nonfasting. AST/ALT mildly elevated.
Vital Signs
Initial and Last Documented VS:
Initial Vital Signs
Temp Pulse BP Pulse Ox
97.9 F 96 185/90 96
08/05/24 23:12 08/05/24 23:12 08/05/24 23:12 08/05/24 23:12
Last Documented Vital Signs
Temp Pulse Resp BP Pulse Ox
97.9 F 104 17 163/84 98
08/05/24 23:12 08/06/24 00:15 08/06/24 00:15 08/06/24 00:00 08/05/24 23:30
MDM/Problems Addressed
Differential Diagnosis Includes:
Left hip fracture, contusion
MDM/Problems Addressed:
This is a 83 year old female that comes in with c/o fall. States that she has left hip and thigh pain after falling in her bedroom. States that her foot got stuck and she laned on the left hip area and then rolled onto her back. States that she did
not hit her head or have any LOC.
Will check labs. and get X-rays of the left hip and femur.
Back into see patient. Explained that she did fracture the left proximal femur. Will admit patient to hospitalist and put Orthopedic on Consult. Dr. Philip has seen patient in the past.
Chronic conditions affecting care:
Atrial fib on Coumadin,
Acute Exacerbation and/or Progression of Chronic Illness:
NA
*Pulse Oximetry
Patient hypoxic: no
*[employer] Inspector Interpretation
Rate: normal
Interpretation: abnormal
Heart Rate: 92
Rhythm: a-fib
*Critical Care Note
Total Time (30-74mins, 75-104mins- exclusive of procedures): Not Applicable
ED Attending Note
-
Portions of this chart may have been created with voice recognition software.� Occasional wrong word or��sound alike� substitutions may have occurred due to the inherent limitations of voice recognition software.
Discharge Plan
Departure
Patient Disposition: Admit
Date of Disposition: 08/06/24
Time of Disposition: 01:30
Admit to: Med/Surg
Presentation/result/management discussed w/ accepting MD/DO: Hospitalist
Patient with high blood pressure during this ER visit?: Yes
Condition: Good
Covid-19: Not Applicable
Discharge Problem:
Closed fracture of proximal end of left femur
Prescriptions:
No Action
carvedilol 6.25 MG tablet
6.25 mg PO BID@0800,1700
acetaminophen [Tylenol Extra Strength] 500 MG tablet
500 mg PO HSPRN PRN (Reason: pain/sleep)
cholecalciferol (vitamin D3) 1,000 UNITS tablet
1,000 units PO DAILY
multivitamin with folic acid [Tab-A-Mick] 1 TABLET tablet
1 tab PO DAILY
atorvastatin 80 MG tablet
80 mg PO DAILY@1700
warfarin 3 mg Tablet
3 mg PO SUTUFR@1800
lisinopril 2.5 mg tablet
2.5 mg PO DAILY
Probiotic
250 mg PO DAILY
warfarin 2 mg Tablet
2 mg PO MOWETHSA@1800
ipratropium-albuterol 0.5 mg-3 mg(2.5 mg base)/3 mL Solution For Nebulization
3 ml inhalation R Q4HPRN PRN (Reason: wheezing/dyspnea) Qty: 90 0RF
furosemide 40 mg Tablet
40 mg PO DAILY Qty: 30 0RF
promethazine-codeine 6.25-10 mg/5 mL Syrup
5 ml PO HSPRN PRN (Reason: cough) Qty: 118 0RF
cefdinir 300 mg Capsule
300 mg PO Q12 Qty: 3 0RF
doxycycline hyclate 100 mg Capsule
100 mg PO Q12 Qty: 3 0RF
acetaminophen [Pain Relief ES (acetaminophen)] 500 mg tablet
1,000 mg PO TID PRN (Reason: Pain) Qty: 30 0RF
Referrals:
Mike Sparks MD [Family Provider] -
Interventions
Interventions:
*Risk Screen - Suicide Last Done: 08/05/24 23:20
*General Assessment Last Done: 08/05/24 23:20
*Neglect/Abuse Screening Last Done: 08/05/24 23:20
*ED COVID-19 Vaccine History Last Done: 08/05/24 23:20
ED-Musculoskeletal Assessment Last Done: 08/05/24 23:20
Discharge Date and Time
Print Language: LUXEMBOURGER
[2024-08-06] MEDS: MORPHINE SULFATE 2 MG IV ×3 (00:28→18:17)
[2024-08-06 00:43] LABS: % Basophils 0.5 % (0-2); % Eosinophils 1.5 % (0-6); % Immature Granulocytes 0.6 % (0-0.5); % Lymphocytes 13.7 % (20.5-51.1); % Monocytes 10.1 % (1.7-9.3); % Neutrophils 73.6 % (42.2-75.2); Absolute Eosinophils 0.1 10^3/uL (0-0.7); Absolute Immature Granulocytes 0.1 10^3/uL (0-0.05); Absolute Lymphocytes 1.2 10^3/uL (1.2-3.4); Absolute Monocytes 0.9 10^3/uL (0.1-0.6); Absolute Neutrophils 6.5 10^3/uL (1.4-6.5); Mean Corp Hgb Conc. 33.3 g/dL (33.0-37.0); Mean Corpuscular Hgb 31.8 pg (27.0-31.0); Mean Corpuscular Volume 95.4 fL (81.0-99.0); Mean Platelet Volume 9.5 fL (7.4-10.4); Nucleated Red Blood Cells % 0 %; Platelet Count 210 10^3/uL (130-400); Red Blood Cell Count 3.46 10^6/uL (4.20-5.40); Red Cell Dist. Width 13.3 % (11.5-14.5); White Blood Cell Count 8.8 10^3/uL (4.8-10.8)
[2024-08-06 00:53] LABS: INR 2.57; PT 27.5 Sec (11.4-14.6)
[2024-08-06 01:02] LABS: ALT (SGPT) 61 U/L (0-35); AST (SGOT) 49 U/L (14-36); Alkaline Phosphatase 98 U/L (38-126); Blood Urea Nitrogen 23 mg/dl (7-17); Calcium 9.4 mg/dl (8.4-10.2); Carbon Dioxide 26 mmol/L (22-30); Chloride 103 mmol/L (98-107); Estimated Creatinine Clearance 65 ml/min; Glucose 100 mg/dl (70-99); Potassium 3.6 mmol/L (3.5-5.1); Sodium 139 mmol/L (135-145); Total Bilirubin 1.2 mg/dl (0.2-1.3); Total Protein 6.2 g/dl (6.3-8.2); eGFR > 60.00
[2024-08-06] MEDS: MORPHINE SULFATE 4 MG IV (01:46)
[2024-08-06] MEDS: ZOFRAN 4 MG IV (01:58)
--- NOTE | 2024-08-06 02:47 | HPS.HSE ---
Family Physician
-
Family Physician: Mike Sparks
Chief Complaint
-
Fall / Hip Pain
History of Present Illness
Patient is an 83y F with PMH significant for permanent atrial fibrillation, prior CVA and hypertension who presents to ED complaining of left hip pain s/p fall at home. Patient notes that she was feeling very well this evening. She was doing
laundry / putting away clothes in her bedroom and notes that her foot got 'stuck' while walking - she is not sure if it simply stuck on the floor or caught the foot of the bed, etc. Patient lost her balance and fell - landing on her L side. She
did not strike her head or lose consciousness. No prodrome of chest pain, palpitations, dizziness, etc prior to the fall.
After the fall, patient has complained of pain in the L hip.
Patient had a similar incident in October 2023 resulting in a R hip fracture.
She underwent R femur ORIF at that time and had no issues with surgery / recovery.
Medical History
Past Medical History
Past Medical History: Reports Other
Additional Past Medical History:
Permanent Atrial Fibrillation
Hypertension
Pulmonary Hypertension
ASCVD / PAD
GERD
Past Surgical History: Reports Other
Additional Past Surgical History:
Right Hip ORIF
Appendectomy
IAT (R MCA)
TVH / BSO
Pseudoaneurysm Repair (R groin)
Cholecystectomy
Social History
Tobacco: Non-smoker
Alcohol: Occasional (Rare)
Drug: None
Family History
Family History: Not pertinent
Allergies / Home Medications
Allergies reflects when Allergies were last updated in [employer].
Home Medications with original date entered in [employer]
Allergy/Medication List:
Allergies
Allergy/AdvReac Type Severity Reaction Status Date / Time
latex Allergy Itching Verified 08/05/24 23:19
mold Allergy NASAL Verified 08/05/24 23:19
SYMPTOMS
pollen extracts Allergy NASAL Verified 08/05/24 23:19
SYMPTOMS
Sulfa (Sulfonamide Allergy Unknown Verified 08/05/24 23:19
Antibiotics)
Home Medications
atorvastatin 80 mg tablet 40 mg PO DAILY@1700 High Cholesterol 10/18/17
carvedilol 6.25 mg tablet 6.25 mg PO BID@0800,1700 Heart Failure 10/18/17
cholecalciferol (vitamin D3) 25 mcg (1,000 unit) tablet 1,000 units PO DAILY Supplement 10/18/17
Probiotic 250 mg PO DAILY Supplement 10/13/23
lisinopril 2.5 mg tablet 2.5 mg PO DAILY Blood Pressure 10/13/23
warfarin 2 mg tablet 2 mg PO QPM Blood Clot Prevention/Tx 11/14/23
furosemide 40 mg tablet 40 mg PO DAILY #30 tabs 11/20/23
ascorbic acid (vitamin C) 1,000 mg tablet (Vitamin C) 1,000 mg PO DAILY 08/06/24
biotin 1,000 mcg chewable tablet 1,000 mcg PO QPM 08/06/24
cetirizine 10 mg tablet (Zyrtec) 10 mg PO DAILY PRN Allergies 08/06/24
ferrous sulfate 325 mg (65 mg iron) tablet 325 mg PO DAILY 08/06/24
Review of Systems
-
History Source: Patient
A 12 point ROS was completed and negative except as noted: Yes
Constitutional: Denies Fever or Chills
Respiratory: Denies Cough or Trouble Breathing
Cardiac: Denies Chest Pain or Palpitations
Abdomen/GI: Denies Abdominal Pain, Nausea, Vomiting or Diarrhea
: Denies Dysuria, Frequency or Flank Pain
Musculoskeletal: Reports Joint Pain and Edema
Neurological: Denies Dizzy or Headache
Psych: Denies Depression or Anxiety
Physical Exam
Vital Signs
Vital Signs
Temp Pulse Resp BP Pulse Ox
97.9 F 89 18 114/51 94
08/05/24 23:12 08/06/24 02:01 08/06/24 02:01 08/06/24 02:01 08/06/24 02:01
Physical Exam
General: Other (83y F in no acute distress.)
HEENT: Moist mucous membranes and PERRLA
Respiratory: Clear; No Wheezes, Rales or Rhonchi
Cardiac: S1/S2, Irregular Rhythm and Murmur (II/ RAVEN)
GI: Soft, Non Tender, Non Distended and Normal Bowel Sounds
Musculoskeletal: No Clubbing, No Cyanosis and Other (2+ pitting edema b/l LEs. TEDs stockings in place. LLE externally rotated.)
Neuro: AO x 3
Laboratory Results
-
08/06/24 00:32
08/06/24 00:32
Laboratory Results
PT 27.5 Sec (11.4-14.6) H 08/06/24 00:32
INR 2.57 08/06/24 00:32
Total Bilirubin 1.2 mg/dl (0.2-1.3) 08/06/24 00:32
AST 49 U/L (14-36) H 08/06/24 00:32
ALT 61 U/L (0-35) H 08/06/24 00:32
Alkaline Phosphatase 98 U/L (38-126) 08/06/24 00:32
Impression/Plan
-
A/P: Patient is an 83y F with PMH significant for A-Fib, hypertension and prior CVA who presents to ED complaining of LLE pain s/p fall at home.
Left Hip Fracture
- Admit for further evaluation and treatment.
- Bedrest, pain control, supportive care overnight.
- Ortho evaluation for eventual operative repair.
- Will ask Cardiology to evaluate pre-op (see below).
Permanent Atrial Fibrillation
History of Embolic CVA
Coumadin Coagulopathy
- Patient on chronic Coumadin for A-Fib.
- Follow by Dr. Laura at [facility] Cardiology.
- Patient had emergency Coumadin reversal for appendectomy in the past (2016) and was restarted on Coumadin post-op - following this had bilateral embolic CVAs.
- Given this risk / history, would avoid active reversal.
- Bridge with heparin once INR < 2 pre-op and resume post-op as soon as OK with Ortho.
- Hold Coumadin for now (last dose was Saturday 08/04).
- Cardiology evaluation as noted above for further guidance.
- Follow INR daily.
- Continue rate-controlling medications and monitor on tele for now.
Benign Hypertension
- Stable. Continue current medications and adjust as needed.
GERD
- Stable. Continue daily PPI.
Abnormal LFTs
- This is chronic / unchanged.
- No further evaluation acutely.
DVT Prophylaxis: SCDs
Code Status: Full
--- NOTE | 2024-08-06 05:38 | PTCARENOTE ---
Received pt from ED into room 2127. Pt was pulled over from stretcher to bed with assist x4. AAOx3. VSS. 93% RA, placed on 1L 96%. Tele, afib with HR in 90s. R hand/wrist IV. 5/10 pain in L hip, exacerbated by movement. +2 pitting edema to b/l LE.
+2 L hip edema. Ice pack applied. Purewick in place. Pt has her glasses, phone, and watch at the bedside. Resting comfortably in bed, call clements within reach.
[2024-08-06 07:11] LABS: Hematocrit 31.8 % (37.0-47.0); Hemoglobin 10.4 g/dL (12.0-16.0); Mean Corp Hgb Conc. 32.7 g/dL (33.0-37.0); Mean Corpuscular Hgb 32.5 pg (27.0-31.0); Mean Corpuscular Volume 99.4 fL (81.0-99.0); Mean Platelet Volume 10.1 fL (7.4-10.4); Platelet Count 202 10^3/uL (130-400); Red Cell Dist. Width 13.2 % (11.5-14.5); White Blood Cell Count 10.9 10^3/uL (4.8-10.8)
[2024-08-06 07:12] LABS: INR 2.62; PT 27.9 Sec (11.4-14.6)
[2024-08-06 07:30] LABS: Blood Urea Nitrogen 20 mg/dl (7-17); Carbon Dioxide 25 mmol/L (22-30); Chloride 104 mmol/L (98-107); Estimated Creatinine Clearance 66 ml/min; Glucose 98 mg/dl (70-99); Potassium 3.9 mmol/L (3.5-5.1); Sodium 144 mmol/L (135-145); eGFR > 60.00
--- NOTE | 2024-08-06 07:51 | CON.CAR ---
Addendum entered and electronically signed by Douglas Partida MD 08/06/24 17:32:
I saw and examined the patient.
The Foundry Worker General's note was reviewed and I agree with the note.
Comment: Briefly, 83-year-old woman past medical history of permanent atrial fibrillation on warfarin and prior CVA who presents after mechanical fall found to have left femur fracture.
Discussed with patient and her at bedside this morning that she is at elevated risk for surgery d/t h/o CVA, but this not prohibitive especially given the significant morbidity and mortality of unrepaired hip fracture. No further cardiac
testing necessary prior to the OR from my standpoint.
Would recommend letting INR drift down if possible as she sustained a stroke in the past after reversal of INR warfarin.
Rest per Nicole Avina
Addendum entered and electronically signed by Nicole Avina PA-C 08/06/24 13:39:
reviewed last office note 06/10/[address] Laura. Patient with permanent afib, mitral regurgitation, and known pulm HTN. rest as below.
Original Note:
Consultation
Consultation Request
Date/Time Consultation Performed: 08/06/24
Requesting Provider: Dr. Gonzáles
Performing Provider: Nicole Avina PA-C for Dr. Partida
Reason for Consultation: hip fracture, preop eval
Medical History
-
Chief Complaint: hip pain
History of Present Illness:
Patient is an 83yo F with PMH of permanent afib on chronic OAC managed with home monitor through [facility] cardiology, history of embolic R MCA CVA in setting of FFP reversal in setting of appendectomy in 2017. She is followed by Dr. Laura of [facility]. She
reports that she and her just moved to an apartment from their prior home ~1 week ago. She reports with moving some clothing from her bed to the chair she believes her foot got stuck and she fell onto her left side/hip and rolled to her
back. She reports noting pain from her L hip down to the knee. She denies lightheadedness or dizziness that preceded her fall, no LOC. found to have L proximal femur fracture by imaging. Cardiology consulted for preop eval. INR 2.62 on coumadin 2mg
daily as OP. Denies recent CP, SOB, palpitations. She does report some weight gain and LE edema over the last week. She has been compliant with lasix 40mg daily as OP.
PMH:
Fall with right hip fracture s/p ORIF repair 10/2023
Right knee hematoma due to fall 10/12/23
Chronic HFpEF
Permanent Afib
Chronic warfarin OAC managed by [facility]
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
Hypertension
Hyperlipidemia
Past Medical History
Past Medical History: Other (in HPI)
Past Surgical History: Appendectomy, Orthopedic and Other (right MCA CVA with IAT at 08/2017)
Social History
Tobacco: Non-Smoker
Alcohol: None
Drug: None
Personal:
Living: With Family
Family History
Family History: Reviewed & Not Pertinent
Allergies / Home Medications
Allergy/AdvReac Type Severity Reaction Status Date / Time
latex Allergy Itching Verified 08/05/24 23:19
mold Allergy NASAL Verified 08/05/24 23:19
SYMPTOMS
pollen extracts Allergy NASAL Verified 08/05/24 23:19
SYMPTOMS
Sulfa (Sulfonamide Allergy Unknown Verified 08/05/24 23:19
Antibiotics)
�Medication �Instructions �Recorded �Confirmed �Type
atorvastatin 80 mg tablet 40 mg PO DAILY@1700 High 10/18/17 08/06/24 History
Cholesterol
carvedilol 6.25 mg tablet 6.25 mg PO BID@0800,1700 Heart 10/18/17 08/06/24 History
Failure
cholecalciferol (vitamin D3) 25 1,000 units PO DAILY Supplement 10/18/17 08/06/24 History
mcg (1,000 unit) tablet
Probiotic 250 mg PO DAILY Supplement 10/13/23 08/06/24 History
lisinopril 2.5 mg tablet 2.5 mg PO DAILY Blood Pressure 10/13/23 08/06/24 History
warfarin 2 mg tablet 2 mg PO QPM Blood Clot 11/14/23 08/06/24 History
Prevention/Tx
furosemide 40 mg tablet 40 mg PO DAILY #30 tabs 11/20/23 08/06/24 Rx
ascorbic acid (vitamin C) 1,000 mg 1,000 mg PO DAILY 08/06/24 08/06/24 History
tablet (Vitamin C)
biotin 1,000 mcg chewable tablet 1,000 mcg PO QPM 08/06/24 08/06/24 History
cetirizine 10 mg tablet (Zyrtec) 10 mg PO DAILY PRN Allergies 08/06/24 08/06/24 History
ferrous sulfate 325 mg (65 mg 325 mg PO DAILY 08/06/24 08/06/24 History
iron) tablet
Review of Systems
-
History Source: Patient
All other systems: Negative unless noted
Physical Exam
Vital Signs
Temp Pulse Resp BP Pulse Ox
98.5 F 98 18 128/86 96
08/06/24 04:54 08/06/24 04:54 08/06/24 04:54 08/06/24 04:54 08/06/24 06:14
Lab Results
08/06/24 06:18
08/06/24 06:18
Physical Exam
General: No Apparent Distress, Comfortable and Other (pale appearing. on supp O2)
HEENT: Normocephalic, Anicteric and Moist Mucous Membranes
Respiratory: Clear and Non Labored Respirations
Cardiac: S1/S2, Irregular Rhythm and Murmur
GI: Soft, Non Tender, Non Distended and Normal Bowel Sounds
Musculoskeletal: No Clubbing, No Cyanosis and Edema (1+ of B/L LE)
Skin: Warm and Dry
Neuro: AO x 3
Impression / Plan
-
Primary Residential Collections: Dr. Laura of [facility]
Assessment:
Presentation with fall
L proximal femur fracture
Anemia
Recent weight gain, LE edema
Fall with right hip fracture s/p ORIF repair 10/2023
Right knee hematoma due to fall 10/12/23
Chronic HFpEF
Permanent Afib
Chronic warfarin OAC managed by [facility]
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
Hypertension
Hyperlipidemia
ECHO 11/14/23: EF 50 to 55%, mild concentric LVH, severely dilated atria, moderate MR, mild to moderate with peak/mean gradients 19/10 mmHg, severe TR, PAP 69 mmHg
Plan:
-Patient presents with mechanical fall and left proximal femur fracture by imaging.
-Awaiting orthopedic evaluation, likely requires OR for repair
-Cardiology consulted for preop evaluation
-Will attempt to obtain records from Dr. Laura, patient's primary title i director, for review
-She has permanent atrial fibrillation. Heart rates appear controlled on review of telemetry on outpatient carvedilol, continue
-INR 2.62. Would favor avoiding vitamin K/reversal agents if possible. Of note patient has history of CVA in setting of warfarin reversal/subtherapeutic INR in 2017. will require bridging when INR<2. she has tolerated lovenox in past.
-She reports some lower extremity edema and weight gain over the last week. dry weight typically 158-159 pounds. She has been compliant with p.o. Lasix 40 mg daily. Check proBNP.
-denies CP, SOB. EKG with afib with nonspecific T wave abnormality. last echo from earlier this year as above.
-patient felt to be moderate cardiovascular risk for OR however this risk is not prohibitive given necessity of surgery.
-will follow perioperatively
Data Reviewed
-
EKG: Tracing Personally Visualized and interpreted
Medical Tests (Nuc Med, Echo etc): Report Reviewed by me
Labs: Labs Reviewed by me
Old Records: Reviewed
[2024-08-06] MEDS: FEOSOL 325 MG PO (08:41)
[2024-08-06] MEDS: LASIX 40 MG PO (08:41)
[2024-08-06] MEDS: COREG 6.25 MG PO ×2 (08:41→16:54)
[2024-08-06] MEDS: TYLENOL 1000 MG PO ×3 (08:42→21:50)
[2024-08-06 11:53] LABS: NT-proBNP 1980 pg/ml
[2024-08-06] MEDS: LR 500 IV ×3 (12:00→20:12)
[2024-08-06 12:05] LABS: Hematocrit 26.3 % (37.0-47.0); Hemoglobin 8.8 g/dL (12.0-16.0); Mean Corp Hgb Conc. 33.5 g/dL (33.0-37.0); Mean Corpuscular Volume 95.6 fL (81.0-99.0); Mean Platelet Volume 9.7 fL (7.4-10.4); Platelet Count 184 10^3/uL (130-400); Red Blood Cell Count 2.75 10^6/uL (4.20-5.40); Red Cell Dist. Width 13.3 % (11.5-14.5); White Blood Cell Count 7.6 10^3/uL (4.8-10.8)
--- NOTE | 2024-08-06 12:12 | CON.ORTHO ---
Consultation - Orthopedics
History
HPI: 83-year-old female presents emergency department status post mechanical fall at home with complaint of left hip pain and inability bear weight. She was subsequently diagnosed with a left peritrochanteric femur fracture. She was admitted to
the hospital service and orthopedics is consulted for further evaluation and treatment. Today patient reports that she had just moved into an apartment and felt somewhat fatigued and sustained a mechanical fall at home. She subsequently felt
significant pain in her left groin and inability to bear weight. Pain is made worse by palpation affected area and attempted ambulation. She does have a history of right femoral neck fracture earlier this year and underwent a right hip
hemiarthroplasty. She is on Coumadin at baseline and has history of CVA with Coumadin reversal in the remote past.
Allergies / Home Medications
Past medical history: A-fib on Coumadin, CVA, hypertension, hypercholesterolemia
Past surgical history: Appendectomy, cholecystectomy, right hip hemiarthroplasty
Social history: Lives at home with her , non-smoker
Family history: Not pertinent
Allergy/AdvReac Type Severity Reaction Status Date / Time
latex Allergy Itching Verified 08/05/24 23:19
mold Allergy NASAL Verified 08/05/24 23:19
SYMPTOMS
pollen extracts Allergy NASAL Verified 08/05/24 23:19
SYMPTOMS
Sulfa (Sulfonamide Allergy Unknown Verified 08/05/24 23:19
Antibiotics)
�Medication �Instructions �Recorded
atorvastatin 80 mg tablet 40 mg PO DAILY@1700 High 10/18/17
Cholesterol
carvedilol 6.25 mg tablet 6.25 mg PO BID@0800,1700 Heart 10/18/17
Failure
cholecalciferol (vitamin D3) 25 1,000 units PO DAILY Supplement 10/18/17
mcg (1,000 unit) tablet
Probiotic 250 mg PO DAILY Supplement 10/13/23
lisinopril 2.5 mg tablet 2.5 mg PO DAILY Blood Pressure 10/13/23
warfarin 2 mg tablet 2 mg PO QPM Blood Clot 11/14/23
Prevention/Tx
furosemide 40 mg tablet 40 mg PO DAILY #30 tabs 11/20/23
ascorbic acid (vitamin C) 1,000 mg 1,000 mg PO DAILY 08/06/24
tablet (Vitamin C)
biotin 1,000 mcg chewable tablet 1,000 mcg PO QPM 08/06/24
cetirizine 10 mg tablet (Zyrtec) 10 mg PO DAILY PRN Allergies 08/06/24
ferrous sulfate 325 mg (65 mg 325 mg PO DAILY 08/06/24
iron) tablet
Vital Signs / Lab Results
Temp Pulse Resp BP Pulse Ox
97.4 F 104 14 77/45 96
08/06/24 11:05 08/06/24 11:05 08/06/24 11:05 08/06/24 11:05 08/06/24 11:05
08/06/24 12:00
08/06/24 06:18
10 point review systems reviewed and negative unless otherwise stated
General: Pleasant, no acute distress supine in bed
Musculoskeletal left lower extremity
Skin intact, no erythema, no ecchymotic staining noted
There is moderate swelling thigh
There is trace knee effusion
Positive EHL, FHL, ankle dorsiflexion, plantarflexion
Extremity is slightly shortened without significant rotational deformity today on examination
No other areas of bony tenderness palpation or crepitation of long bones or joints
Diagnostic studies
X-rays left hip and femur independently reviewed by myself reveal a displaced left peritrochanteric femur fracture with some subtrochanteric extension on my read
Assessment / Plan
83-year-old female status post fall with left peritrochanteric femur fracture. I do long detailed discussion with the patient regarding diagnosis and treatment options. We discussed both surgical and nonsurgical options. After discussion we
mutually agreed to proceed with surgical intervention in the form of left cephalomedullary nail fixation peritrochanteric femur fracture. Discussed risks benefits and alternatives of surgery. We discussed the usual expected perioperative and
postoperative course. Patient is on Coumadin with elevated INR. Given her history of CVA with reversal in the past, cardiology would like to be less aggressive with reversal. Would plan to keep patient n.p.o. prophylactically at midnight. Will
check INR in the morning. If it is at a level of 1.7 or less, we will plan to proceed to the OR. If not we will plan for n.p.o. the following day until INR is at in acceptable level.
Nonweightbearing left lower extremity
Pain control
Please hold Coumadin in preparation for OR
N.p.o. at midnight
Goal INR 1.7 or less
Please reach out any questions or concerns
Plan: 2 OR for operative fixation left femur fracture pending acceptable INR, medical clearance and OR availability
--- NOTE | 2024-08-06 13:13 | W.PN.HOSP.TC ---
Today's Communication/Plan
-
NPO after MN
Plan: 2 OR for operative fixation left femur fracture pending acceptable INR, medical clearance and OR availability
Holding Coumadin, bridging once INR >2
Assessment / Plan
Assessment / Plan
Physical Exam
General: Other (83y F in no acute distress.)
HEENT: Moist mucous membranes and PERRLA
Respiratory: Clear; No Wheezes, Rales or Rhonchi
Cardiac: S1/S2, Irregular Rhythm and Murmur (II/ RAVEN)
GI: Soft, Non Tender, Non Distended and Normal Bowel Sounds
Musculoskeletal: No Clubbing, No Cyanosis and Other (2+ pitting edema b/l LEs. TEDs stockings in place. LLE externally rotated.)
Neuro: AO x 3
A/P: Patient is an 83y F with PMH significant for A-Fib, hypertension and prior CVA who presents to ED complaining of LLE pain s/p fall at home.
Left Hip Fracture
- Admit for further evaluation and treatment.
- Bedrest, pain control, supportive care overnight.
-cards on board for clearance
-Nonweightbearing left lower extremity
-Pain control
Plan: 2 OR for operative fixation left femur fracture pending acceptable INR, medical clearance and OR availability
-hold Coumadin in preparation for OR
-N.p.o. at midnight
-Goal INR 1.7 or less
Permanent Atrial Fibrillation
History of Embolic CVA
Coumadin Coagulopathy
- Patient on chronic Coumadin for A-Fib.
- Follow by Dr. Laura at [facility].
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
- Given this risk / history, would avoid active reversal.
- Bridge with heparin once INR < 2 pre-op and resume post-op as soon as OK with Ortho.
- Hold Coumadin for now (last dose was Saturday 08/04).
- Cardiology evaluation as noted above for further guidance.
- Follow INR daily.
- Continue rate-controlling medications and monitor on tele for now.
Benign Hypertension
- Stable. Continue current medications and adjust as needed.
GERD
- Stable. Continue daily PPI.
Abnormal LFTs
- This is chronic / unchanged.
- No further evaluation acutely.
DVT Prophylaxis: SCDs
Code Status: Full
Anticipated Discharge: > 48 hours
Subjective/Interval History
-
Date of Service: August 06, 2024
No acute events
Objective Data
-
Labs:
Laboratory Results
08/06/24 08/06/24
06:18 12:00
WBC 10.9 H 7.6
Hgb 10.4 L 8.8 L
Hct 31.8 L 26.3 L
Plt Count 202 184
PT 27.9 H
INR 2.62
Sodium 144
Potassium 3.9
Chloride 104
Carbon Dioxide 25
BUN 20 H
Creatinine 0.6
Glucose 98
Calcium 9.0
Vital Signs:
Vital Signs
Temp Pulse Resp BP Pulse Ox
97.4 F 104 14 77/45 96
08/06/24 11:05 08/06/24 11:05 08/06/24 11:05 08/06/24 11:05 08/06/24 11:05
Review of Systems
-
History Source: Patient
All other systems: Not reviewed unless documented
Physical Exam
-
General: No Apparent Distress
HEENT: PERRLA
Respiratory: Rales
Cardiac: Regular Rhythm and S1/S2; Negative JVD
GI: Soft and Nontender
Musculoskeletal: Other (edema improved)
Skin: Warm and Dry; Negative Rash
Neuro: AO x 3
Psych: Calm
Data Reviewed
-
Diagnostic Radiology: Image personally visualized and interpreted and Report Reviewed by me
Labs: Labs Reviewed by me
--- NOTE | 2024-08-06 13:26 | CM ---
Patient seen at bedside with
IA completed.
dx: L femur fx d/t fall
PMH: afib, CVA, HTN, R hip fx w ORIF in Oct 2023
Lives at the [place] at [facility], 1 story no steps to enter
PLOF: Independent with rollator walker
DME: rollator walker, shower chair, cane, grab bars
Denies any food/housing/utilities/transportaton insecurities
Has had [facility] in past and [facility] in past
PT/OT to eval post-op
PCP: Mike Sparks
Pharmacy: [facility]
PLAN: Await PT/OTevals post-op
[2024-08-06] MEDS: LIPITOR 40 MG PO (16:54)
[2024-08-06 19:43] LABS: Hematocrit 24.6 % (37.0-47.0); Hemoglobin 8.1 g/dL (12.0-16.0); Mean Corp Hgb Conc. 32.9 g/dL (33.0-37.0); Mean Corpuscular Hgb 31.4 pg (27.0-31.0); Mean Corpuscular Volume 95.3 fL (81.0-99.0); Mean Platelet Volume 9.8 fL (7.4-10.4); Platelet Count 160 10^3/uL (130-400); Red Blood Cell Count 2.58 10^6/uL (4.20-5.40); Red Cell Dist. Width 13.6 % (11.5-14.5)
[2024-08-06] MEDS: SENOKOT 17.2 MG PO (21:50)
[2024-08-07] VITALS (7 sets, daily range): BP systolic 91–143; BP diastolic 50–73; BMI 27.6
[2024-08-07 06:11] LABS: Hematocrit 26.8 % (37.0-47.0); Hemoglobin 8.7 g/dL (12.0-16.0); Mean Corp Hgb Conc. 32.5 g/dL (33.0-37.0); Mean Corpuscular Hgb 31.2 pg (27.0-31.0); Mean Corpuscular Volume 96.1 fL (81.0-99.0); Platelet Count 180 10^3/uL (130-400); Red Blood Cell Count 2.79 10^6/uL (4.20-5.40); Red Cell Dist. Width 13.4 % (11.5-14.5); White Blood Cell Count 9.4 10^3/uL (4.8-10.8)
[2024-08-07 06:15] LABS: INR 3.89; PT 38.4 Sec (11.4-14.6)
[2024-08-07 06:26] LABS: ALT (SGPT) 41 U/L (0-35); AST (SGOT) 33 U/L (14-36); Albumin 3.2 g/dl (3.5-5.0); Alkaline Phosphatase 68 U/L (38-126); Blood Urea Nitrogen 16 mg/dl (7-17); Calcium 8.5 mg/dl (8.4-10.2); Carbon Dioxide 28 mmol/L (22-30); Chloride 103 mmol/L (98-107); Estimated Creatinine Clearance 64 ml/min; Glucose 94 mg/dl (70-99); Potassium 3.8 mmol/L (3.5-5.1); Sodium 140 mmol/L (135-145); Total Bilirubin 0.9 mg/dl (0.2-1.3); Total Protein 5.3 g/dl (6.3-8.2); eGFR > 60.00
--- NOTE | 2024-08-07 07:54 | W.PN.CARDCBS ---
Addendum entered and electronically signed by Douglas Partida MD 08/07/24 09:17:
I saw and examined the patient.
The Train Conductor's note was reviewed and I agree with the note.
Comment: Briefly, 83-year-old woman past medical history of atrial fibrillation on warfarin and prior CVA in the setting of reversal with FFP who presents with hip frx awaiting OR for fixation
Unfortunately INR trending up and is 3.9 this AM
Recommended PO vitamin K 5mg x1, patient and are agreeable
Repeat INR this afternoon
Start heparin gtt when INR < 2
Rest per Nicole Avina
Original Note:
Today's Communication / Plan
-
5mg po vit K
repeat INR this afternoon. will require bridging when INR<2
Impression / Plan
-
Primary Family Dentist: Dr. Laura of [facility]
Assessment:
Presentation with fall
L proximal femur fracture
Anemia
Recent weight gain, LE edema
Fall with right hip fracture s/p ORIF repair 10/2023
Right knee hematoma due to fall 10/12/23
Chronic HFpEF
Permanent Afib
Chronic warfarin OAC managed by [facility]
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
Mod MR
Mild to mod
Pulm HTN
Hypertension
Hyperlipidemia
ECHO 11/14/23: EF 50 to 55%, mild concentric LVH, severely dilated atria, moderate MR, mild to moderate with peak/mean gradients 19/10 mmHg, severe TR, PAP 69 mmHg
Plan:
-Patient presented with mechanical fall and left proximal femur fracture by imaging.
-She has permanent atrial fibrillation. Heart rates appear controlled on review of telemetry overnight on outpatient carvedilol, continue
-INR today higher at 3.89. we were attempting to avoid reversal agents given history of CVA in setting of warfarin reversal/subtherapeutic INR in 2017, however do not want to prolong patient's surgery and at high risk for deconditioning the longer
she stays in bed. will give 5mg po vit K this AM. continue to hold coumadin. will repeat INR this afternoon as will require bridging when INR<2.
-appears stable from volume standpoint. continue po lasix. weight trending up but unclear if accurate as bedscale. proBNP was lower this admission than last in 11/2023. dry weight typically 158-159 pounds. follow post op. no SOB
-patient felt to be moderate cardiovascular risk for OR however this risk is not prohibitive given necessity of surgery.
-will follow perioperatively
-d/w hospitalist and ortho via TT
Progress Note - Family Dentist
Subjective
Date of Service: August 07, 2024
no pain as long as not moving. no CP, SOB
Objective
Labs:
08/07/24 05:28
08/07/24 05:28
Labs
Hgb 8.7 g/dL (12.0-16.0) L 08/07/24 05:28
Hct 26.8 % (37.0-47.0) L 08/07/24 05:28
Plt Count 180 10^3/uL (130-400) 08/07/24 05:28
PT 38.4 Sec (11.4-14.6) H 08/07/24 05:28
INR 3.89 08/07/24 05:28
Sodium 140 mmol/L (135-145) 08/07/24 05:28
Potassium 3.8 mmol/L (3.5-5.1) 08/07/24 05:28
BUN 16 mg/dl (7-17) 08/07/24 05:28
Creatinine 0.7 mg/dL (0.6-1.0) 08/07/24 05:28
Glucose 94 mg/dl (70-99) 08/07/24 05:28
Vital Signs and I&O:
Vital Signs
Temp Pulse Resp BP Pulse Ox
97.8 F 97 16 143/73 100
08/07/24 03:43 08/07/24 03:43 08/07/24 03:43 08/07/24 03:43 08/07/24 03:43
Vital Signs
Temp Pulse Resp BP Pulse Ox
97.8 F 97 16 143/73 100
08/07/24 03:43 08/07/24 03:43 08/07/24 03:43 08/07/24 03:43 08/07/24 03:43
Intake & Output
08/04/24 08/05/24 08/06/24 08/07/24
07:59 07:59 07:59 07:59
Intake Total 2260 / 2260
Output Total 1100 / 1100
Balance 1160 / 1160
Physical Exam
Physical Exam
GEN: No distress, awake, alert, oriented x3. pale. on supp O2
HEENT: supple, anicteric, mmm, eomi
LUNGS: CTA B/L, no wheezes/rales
CV: Irreg, S1/S2, 1/6 syst LSB
ABD: soft, BS+, NT/ND
EXT: No cyanosis, clubbing. trace edema of B/L LE
NEURO: Gross non-focal
SKIN: Warm, pink, dry. No rash
--- NOTE | 2024-08-07 08:08 | W.PN.UPDATE ---
Update Note
Progress Note Update
No plans for OR given elevated INR, will continue to follow and plan for OR when INR appropriate.
[2024-08-07] MEDS: COREG 6.25 MG PO (09:09)
[2024-08-07] MEDS: LASIX 40 MG PO (09:10)
[2024-08-07] MEDS: FEOSOL 325 MG PO (09:10)
[2024-08-07] MEDS: TYLENOL 1000 MG PO ×3 (09:10→22:26)
[2024-08-07] MEDS: MEPHYTON 5 MG PO (09:23)
--- NOTE | 2024-08-07 11:44 | W.PN.HOSP.TC ---
Today's Communication/Plan
-
awaiting INR <1.7, start hep ggt once INR <2
OR once INR acceptable
hold lasix, ACEI
Assessment / Plan
Assessment / Plan
Physical Exam
General: Other (83y F in no acute distress.)
HEENT: Moist mucous membranes and PERRLA
Respiratory: Clear; No Wheezes, Rales or Rhonchi
Cardiac: S1/S2, Irregular Rhythm and Murmur (II/ RAVEN)
GI: Soft, Non Tender, Non Distended and Normal Bowel Sounds
Musculoskeletal: No Clubbing, No Cyanosis and Other (2+ pitting edema b/l LEs. TEDs stockings in place. LLE externally rotated.)
Neuro: AO x 3
A/P: Patient is an 83y F with PMH significant for A-Fib, hypertension and prior CVA who presents to ED complaining of LLE pain s/p fall at home.
Left Hip Fracture
- Admit for further evaluation and treatment.
- Bedrest, pain control, supportive care overnight.
-cards on board for clearance
-Nonweightbearing left lower extremity
-Pain control
Plan: 2 OR for operative fixation left femur fracture pending acceptable INR, medical clearance and OR availability
-hold Coumadin in preparation for OR
-N.p.o. at midnight
-Goal INR 1.7 or less
Permanent Atrial Fibrillation
History of Embolic CVA
Coumadin Coagulopathy
- Patient on chronic Coumadin for A-Fib.
- Follow by Dr. Laura at [facility].
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
- Given this risk / history, would avoid active reversal.
- Bridge with heparin once INR < 2 pre-op
- Hold Coumadin for now (last dose was Saturday 08/04).
- Cardiology evaluation as noted above for further guidance.
- Follow INR daily.
- Continue rate-controlling medications and monitor on tele for now.
Supratherapeutic INR
� Vitamin K today with close monitoring with INR
� 2 PM INR
� Once INR under 2, start heparin drip
Benign Hypertension
- lower BPs
-coreg with holding parameters
-hold lasix, ACEI
GERD
- Stable. Continue daily PPI.
Abnormal LFTs
- This is chronic / unchanged.
- No further evaluation acutely.
DVT Prophylaxis: SCDs
Code Status: Full
Anticipated Discharge: 24 - 48 hours
Subjective/Interval History
-
Date of Service: August 07, 2024
INR elevated, no acute events
Objective Data
-
Labs:
Laboratory Results
08/07/24 08/07/24 08/07/24
05:28 14:00 15:00
WBC 9.4
Hgb 8.7 L
Hct 26.8 L
Plt Count 180
PT 38.4 H Pending Cancelled
INR 3.89 Pending Cancelled
Sodium 140
Potassium 3.8
Chloride 103
Carbon Dioxide 28
BUN 16
Creatinine 0.7
Glucose 94
Calcium 8.5
Total Bilirubin 0.9
AST 33
ALT 41 H
Alkaline Phosphatase 68
Vital Signs:
Vital Signs
Temp Pulse Resp BP Pulse Ox
98.5 F 93 14 91/50 96
08/07/24 11:12 08/07/24 11:12 08/07/24 11:12 08/07/24 11:12 08/07/24 11:12
I&O
08/06/24 08/07/24 08/08/24
06:59 06:59 06:59
Intake Total 2260 / 2260
Output Total 1100 / 1099
Balance 1160 / 1160
Review of Systems
-
History Source: Patient
All other systems: Not reviewed unless documented
Physical Exam
-
General: No Apparent Distress
HEENT: PERRLA
Respiratory: Rales
Cardiac: Regular Rhythm and S1/S2; Negative JVD
GI: Soft and Nontender
Skin: Warm and Dry; Negative Rash
Neuro: AO x 3
Psych: Calm
Data Reviewed
-
Diagnostic Radiology: Image personally visualized and interpreted and Report Reviewed by me
Labs: Labs Reviewed by me
--- NOTE | 2024-08-07 11:49 | CM ---
Patient seen at bedside.
No plans for OR given elevated INR
INR scheduled again for 1400
hourly shift manager to continue to follow for needs.
Will await PT/OT rec post-op
PLAN: CM to follow patient progress for needs.
[2024-08-07] MEDS: LIPITOR 40 MG PO (17:40)
[2024-08-07] MEDS: COREG PO (17:40)
[2024-08-07 18:03] LABS: INR 2.48; PT 27.3 Sec (11.4-14.6)
[2024-08-07] MEDS: SENOKOT 17.2 MG PO (22:26)
[2024-08-08] VITALS (11 sets, daily range): BP systolic 97–150; BP diastolic 8–85; BMI 27.2
[2024-08-08 06:06] LABS: Hematocrit 26.4 % (37.0-47.0); Hemoglobin 8.5 g/dL (12.0-16.0); Mean Corp Hgb Conc. 32.2 g/dL (33.0-37.0); Mean Corpuscular Hgb 31.5 pg (27.0-31.0); Mean Corpuscular Volume 97.8 fL (81.0-99.0); Mean Platelet Volume 10.1 fL (7.4-10.4); Platelet Count 175 10^3/uL (130-400); Red Cell Dist. Width 13.4 % (11.5-14.5); White Blood Cell Count 9.8 10^3/uL (4.8-10.8)
[2024-08-08 06:15] LABS: INR 1.34; PT 17.1 Sec (11.4-14.6)
[2024-08-08 06:29] LABS: ALT (SGPT) 34 U/L (0-35); AST (SGOT) 27 U/L (14-36); Albumin 3.1 g/dl (3.5-5.0); Alkaline Phosphatase 76 U/L (38-126); Blood Urea Nitrogen 13 mg/dl (7-17); Calcium 8.3 mg/dl (8.4-10.2); Carbon Dioxide 32 mmol/L (22-30); Chloride 100 mmol/L (98-107); Estimated Creatinine Clearance 74 ml/min; Glucose 102 mg/dl (70-99); Potassium 3.4 mmol/L (3.5-5.1); Sodium 140 mmol/L (135-145); Total Protein 5.3 g/dl (6.3-8.2); eGFR > 60.00
--- NOTE | 2024-08-08 08:06 | W.PN.CARDCBS ---
Addendum entered and electronically signed by Adria Johansen MD 08/08/24 16:29:
I saw and examined the patient.
The Acoustic Intelligence Specialist's note was reviewed and I agree with the note.
Comment:
GEN: No distress, awake, Ox3
HEENT: supple, anicteric, mmm
LUNGS: CTA, no wheezes/rales
CV: Reg, S1/S2, 1/6 syst LSB, no gallop
ABD: soft, BS+, NT/ND
EXT: No edema
NEURO: Gross non-focal
SKIN: No rash
Plan:
OK for OR today
Rec restart Lovenox and coumadin as soon as possible post-operatively.
Holding Lisinopril for now
Original Note:
Today's Communication / Plan
-
NPO for OR today
patient felt to be moderate cardiovascular risk for OR however this risk is not prohibitive given necessity of surgery.
bridging/OAC as soon as possible post op given history of CVA
Impression / Plan
-
Primary Carriage Operator: Dr. Laura of [facility]
Assessment:
Presentation with fall
L proximal femur fracture
Anemia
Recent weight gain, LE edema
Fall with right hip fracture s/p ORIF repair 10/2023
Right knee hematoma due to fall 10/12/23
Chronic HFpEF
Permanent Afib
Chronic warfarin OAC managed by [facility]
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
Mod MR
Mild to mod
Pulm HTN
Hypertension
Hyperlipidemia
ECHO 11/14/23: EF 50 to 55%, mild concentric LVH, severely dilated atria, moderate MR, mild to moderate with peak/mean gradients 19/10 mmHg, severe TR, PAP 69 mmHg
Plan:
-Patient presented with mechanical fall and left proximal femur fracture by imaging.
-She has permanent atrial fibrillation. Heart rates remain adequate on review of tele overnight. continue OP coreg with hold parameters
-INR now 1.34 s/p 5mg po vit K 08/07. d/w ortho, primary service, nursing - plan for OR today.
-due to history of CVA in setting of warfarin reversal/subtherapeutic INR, would resume bridging/OAC as soon as possible when safe from ortho standpoint
-holding OP lisinopril and lasix in prep for OR. will follow BP post op and resume as able.
-proBNP was lower this admission than last in 11/2023. dry weight typically 158-159 pounds. follow volume status post op
-patient felt to be moderate cardiovascular risk for OR however this risk is not prohibitive given necessity of surgery.
-will follow perioperatively
Progress Note - Carriage Operator
Subjective
Date of Service: August 08, 2024
for OR today.
Objective
Labs:
08/08/24 05:21
08/08/24 05:21
Labs
Hgb 8.5 g/dL (12.0-16.0) L 08/08/24 05:21
Hct 26.4 % (37.0-47.0) L 08/08/24 05:21
Plt Count 175 10^3/uL (130-400) 08/08/24 05:21
PT 17.1 Sec (11.4-14.6) H 08/08/24 05:21
INR 1.34 08/08/24 05:21
Sodium 140 mmol/L (135-145) 08/08/24 05:21
Potassium 3.4 mmol/L (3.5-5.1) L 08/08/24 05:21
BUN 13 mg/dl (7-17) 08/08/24 05:21
Creatinine 0.6 mg/dL (0.6-1.0) 08/08/24 05:21
Glucose 102 mg/dl (70-99) H 08/08/24 05:21
Vital Signs and I&O:
Vital Signs
Temp Pulse Resp BP Pulse Ox
98.0 F 101 14 145/72 98
08/08/24 03:02 08/08/24 03:02 08/08/24 03:02 08/08/24 03:02 08/08/24 03:02
Vital Signs
Temp Pulse Resp BP Pulse Ox
98.0 F 101 14 145/72 98
08/08/24 03:02 08/08/24 03:02 08/08/24 03:02 08/08/24 03:02 08/08/24 03:02
Intake & Output
08/06/24 08/07/24 08/08/24 08/09/24
07:59 07:59 07:59 07:59
Intake Total 2260 / 2260 1200 / 1200
Output Total 1100 / 1100 1775 / 1775
Balance 1160 / 1160 -575 / -575
Physical Exam
Physical Exam
GEN: No distress, awake, alert, oriented x3. pale. on supp O2
HEENT: supple, anicteric, mmm, eomi
LUNGS: CTA B/L, no wheezes/rales
CV: Irreg, S1/S2, 1/6 syst LSB
ABD: soft, BS+, NT/ND
EXT: No cyanosis, clubbing. trace edema of B/L LE
NEURO: Gross non-focal
SKIN: Warm, pink, dry. No rash
[2024-08-08] MEDS: TYLENOL 1000 MG PO ×2 (08:17→21:59)
[2024-08-08] MEDS: COREG 6.25 MG PO ×2 (08:17→18:37)
[2024-08-08] MEDS: FEOSOL 325 MG PO (08:17)
[2024-08-08] MEDS: KCL 270 MEQ IV (10:08)
--- NOTE | 2024-08-08 10:15 | W.PN.UPDATE ---
Update Note
Progress Note Update
Saw patient at bedside. INR is appropriate to proceed to the OR today. Plan for left hip cephalomedullary nail fixation later today pending OR availability. Please remain n.p.o.
--- NOTE | 2024-08-08 13:37 | W.PN.HOSP.TC ---
Today's Communication/Plan
-
OR today
hep to Coumadin bridging once ok with ortho
Assessment / Plan
Assessment / Plan
Physical Exam
General: Other (83y F in no acute distress.)
HEENT: Moist mucous membranes and PERRLA
Respiratory: Clear; No Wheezes, Rales or Rhonchi
Cardiac: S1/S2, Irregular Rhythm and Murmur (II/ RAVEN)
GI: Soft, Non Tender, Non Distended and Normal Bowel Sounds
Musculoskeletal: No Clubbing, No Cyanosis and Other (2+ pitting edema b/l LEs. TEDs stockings in place. LLE externally rotated.)
Neuro: AO x 3
A/P: Patient is an 83y F with PMH significant for A-Fib, hypertension and prior CVA who presents to ED complaining of LLE pain s/p fall at home.
Left Hip Fracture
- Admit for further evaluation and treatment.
- Bedrest, pain control, supportive care overnight.
-cards on board for clearance
-Nonweightbearing left lower extremity
-Pain control
Plan: 2 OR for operative fixation left femur fracture pending acceptable INR, medical clearance and OR availability - today
-hold Coumadin in preparation for OR
-N.p.o. at midnight
-Goal INR 1.7 or less
Permanent Atrial Fibrillation
History of Embolic CVA
Coumadin Coagulopathy
- Patient on chronic Coumadin for A-Fib.
- Follow by Dr. Laura at [facility].
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
- Given this risk / history, would avoid active reversal.
- Bridge with heparin once INR < 2 pre-op; will need to be bridged back when anticoagulation ok by Ortho
- Hold Coumadin for now (last dose was Saturday 08/04).
- Cardiology evaluation as noted above for further guidance.
- Follow INR daily.
- Continue rate-controlling medications and monitor on tele for now.
Supratherapeutic INR
� Vitamin K given
� 2 PM INR
� Once INR under 2, start heparin drip
#Hypokalemia
-monitor and replete
Benign Hypertension
- lower BPs
-coreg with holding parameters
-hold lasix, ACEI
GERD
- Stable. Continue daily PPI.
Abnormal LFTs
- This is chronic / unchanged.
- No further evaluation acutely.
DVT Prophylaxis: hep ggt to coumadin bridging once able
Code Status: Full
Anticipated Discharge: 24 - 48 hours
Subjective/Interval History
-
Date of Service: August 08, 2024
No acute events overnight
Objective Data
-
Labs:
Laboratory Results
08/08/24
05:21
WBC 9.8
Hgb 8.5 L
Hct 26.4 L
Plt Count 175
PT 17.1 H
INR 1.34
Sodium 140
Potassium 3.4 L
Chloride 100
Carbon Dioxide 32 H
BUN 13
Creatinine 0.6
Glucose 102 H
Calcium 8.3 L
Total Bilirubin 1.0
AST 27
ALT 34
Alkaline Phosphatase 76
Vital Signs:
Vital Signs
Temp Pulse Resp BP Pulse Ox
98.8 F 105 18 150/87 98
08/08/24 08:00 08/08/24 08:17 08/08/24 08:00 08/08/24 08:17 08/08/24 10:00
I&O
08/07/24 08/08/24 08/09/24
06:59 06:59 06:59
Intake Total 2260 / 2260 1200 / 1200
Output Total 1100 / 1100 1775 / 1775
Balance 1160 / 1160 -575 / -575
Review of Systems
-
History Source: Patient
All other systems: Not reviewed unless documented
Physical Exam
-
General: No Apparent Distress
HEENT: PERRLA
Respiratory: Rales
Cardiac: Regular Rhythm and S1/S2; Negative JVD
GI: Soft and Nontender
Skin: Warm and Dry; Negative Rash
Neuro: AO x 3
Psych: Calm
Data Reviewed
-
Diagnostic Radiology: Image personally visualized and interpreted and Report Reviewed by me
Labs: Labs Reviewed by me
--- NOTE | 2024-08-08 13:46 | CM ---
Patient seen at bedside.
OR today Dx: L femur fx
Await PT/OT notes post-op
Patient prefers [facility]
PLAN: OR today, Await PT/OT eval post-op
[2024-08-08] MEDS: TYLENOL PO (15:16)
--- NOTE | 2024-08-08 15:22 | PTCARENOTE ---
Patient to OR for fixation of left femur fracture. CHG bath given and linens changed. IV KCL repletion complete prior to transport. Chart given to transport team. Purewick removed.
--- NOTE | 2024-08-08 17:24 | OR.RPT ---
Operative Report
Operative Report
Anesthesia Type:
General
Operative Indications:
Left peritrochanteric femur fracture with subtrochanteric extension
Operative Findings :
Same with some lateral wall comminution
Complications:
None
Implants:
10 mm x 380 mm gamma nail, 100 mm cephalomedullary screw, 42.5 mm, 45 mm x 5 mm distal interlocking screws
Procedure and Technique:
Insertion long cephalomedullary nail
INDICATIONS FOR PROCEDURE:
83-year-old patient presented status post mechanical fall. They were subsequently diagnosed with a peritrochanteric femur fracture. Orthopedics was consulted for further evaluation and treatment. After discussion with the patient and her family,
decision was made to proceed with operative intervention in the form of short cephalomedullary nail. Long discussion was had regarding risks and benefits of procedure. Risks include but are not limited to infection, blood loss, damage to
surrounding structures, persistent pain, loss of function, need for repeat surgery, implant cut out, periprosthetic fracture, DVT/PE and adverse risks of anesthesia. Benefits include early mobilization and fracture stabilization. After discussion
written informed consent was obtained.
OPERATIVE PROCEDURE:
Patient was seen and identified in the preoperative holding area. Operative extremity was marked. Patient was taken to the operating room and provided anesthesia by the anesthesia team. Placed supine on fracture table. Nonoperative extremity was
placed in a scissored position and padded with a pillow to the central post of the fracture table. Operative extremity was placed in a well-padded fracture boot. Biplanar fluoroscopy confirmed appropriate reduction after axial traction, adduction
and slight internal rotation of the fracture. Operative extremity was then prepped and draped in normal sterile fashion. Timeout was performed again identifying the operative extremity correctly. Preoperative antibiotics were addressed.
Approximately 5 cm incision was made 2 fingerbreadths proximal to the greater trochanter. Sharp dissection was carried through skin and subcutaneous tissues deep fascial layers. Guidepin was then inserted under plantar fluoroscopic guidance
through the greater trochanter in accordance with the implants operative technique. This was inserted to a depth just distal to the lesser trochanter. Proximal opening reamer was then utilized. A ball-tipped guidewire was then advanced to the
level of the proximal pole of the patella and confirmed to be in appropriate position on biplanar fluoroscopy. Stepwise reaming was performed to 11.5 mm. This was measured and decision was made to insert a 380 mm x 10 mm long cephalomedullary
nail. Trocar was then inserted through the aiming arm. Sharp dissection was then carried through skin and subcutaneous tissues as well as deep fascial layers. Guidewire was inserted through the trocar into the femoral neck and head.
Appropriate position was confirmed under biplanar fluoroscopy. Attention was made to minimize the tip apex distance. Measurements were obtained for the cephalomedullary screw. Cannulated drill was then drilled to the appropriate depth followed by
the insertion of cannulated cephalomedullary screw. Appropriate final position of the screw within the confines of the femoral neck and head were confirmed again on biplanar fluoroscopy. Setscrew was deployed. Attention was then turned to the
distal femur and to appropriately sized distal interlocking screws were placed via perfect pit river technique through stab incisions. Final appropriate positioning was confirmed again on biplanar fluoroscopy. Satisfied with the extent of surgery,
wounds were copiously irrigated with normal saline solution and closed in a layered fashion utilizing 0 Vicryl for deep fascial layer, 2-0 Vicryl for subcu cutaneous layer and bethanie for skin. Aquacel dressings were applied. Anesthesia was
reversed and patient was taken to the operating room in stable condition. Postoperative plans will include weightbearing to patient's tolerance operative extremity. Will plan to resume Coumadin with bridging per the cardiology/medical services for
DVT prophylaxis. Okay to resume tomorrow for my standpoint.
Disposition:
PACU stable condition
[2024-08-08] MEDS: LIPITOR 40 MG PO (18:34)
[2024-08-08] MEDS: NSS 1000 IV (18:34)
--- NOTE | 2024-08-08 18:49 | PTCARENOTE ---
Received patient from PACU s/p L femur ORIF. VSS, patient c/o mild pain partially relieved by ice packs and repositioning. 3 aquacel dressings on LLE intact with small amount of shadowing - marked by OIL LABORATORY ANALYST. Diet order re-entered for patient. NSS
infusing at 100 ml/hr in R hand IV. Purewick in place.
[2024-08-08] MEDS: COLACE 100 MG PO (20:13)
[2024-08-08] MEDS: SENOKOT 17.2 MG PO (21:59)
[2024-08-08] MEDS: ANCEF 5 IV (23:44)
[2024-08-09] VITALS (8 sets, daily range): BP systolic 94–139; BP diastolic 47–72; PULSE 10–108; BMI 28.0
[2024-08-09 04:58] LABS: Hematocrit 24.7 % (37.0-47.0); Hemoglobin 7.8 g/dL (12.0-16.0); Mean Corp Hgb Conc. 31.6 g/dL (33.0-37.0); Mean Corpuscular Volume 101.2 fL (81.0-99.0); Mean Platelet Volume 9.7 fL (7.4-10.4); Platelet Count 176 10^3/uL (130-400); Red Blood Cell Count 2.44 10^6/uL (4.20-5.40); Red Cell Dist. Width 13.3 % (11.5-14.5)
[2024-08-09 05:10] LABS: INR 1.21; PT 15.6 Sec (11.4-14.6)
[2024-08-09 05:41] LABS: ALT (SGPT) 29 U/L (0-35); AST (SGOT) 25 U/L (14-36); Alkaline Phosphatase 68 U/L (38-126); Blood Urea Nitrogen 12 mg/dl (7-17); Calcium 8.3 mg/dl (8.4-10.2); Carbon Dioxide 28 mmol/L (22-30); Chloride 102 mmol/L (98-107); Estimated Creatinine Clearance 75 ml/min; Glucose 144 mg/dl (70-99); Potassium 4.2 mmol/L (3.5-5.1); Sodium 140 mmol/L (135-145); Total Bilirubin 0.9 mg/dl (0.2-1.3); Total Protein 5.4 g/dl (6.3-8.2); eGFR > 60.00
[2024-08-09] MEDS: TYLENOL 1000 MG PO ×3 (07:51→20:55)
[2024-08-09] MEDS: COREG 6.25 MG PO ×2 (07:51→17:55)
[2024-08-09] MEDS: COLACE 100 MG PO ×2 (07:51→20:48)
[2024-08-09] MEDS: FEOSOL 325 MG PO (07:51)
[2024-08-09] MEDS: LOVENOX 40 MG SC ×2 (07:52→09:58)
[2024-08-09] MEDS: ANCEF 5 IV (07:52)
[2024-08-09] MEDS: NSS IV (08:04)
[2024-08-09 09:44] LABS: APTT 33.2 Sec (23.4-35.0)
--- NOTE | 2024-08-09 10:50 | W.PN.CARDCBS ---
Today's Communication / Plan
-
Resuming outpatient lasix
Possibly resume lisinopril tomorow if BP allows
Lovenox->warfarin bridging as per primary service
Impression / Plan
-
Primary Health Education Specialist: Dr. Laura of [facility]
Assessment:
Presentation with fall
L proximal femur fracture
Anemia
Recent weight gain, LE edema
Fall with right hip fracture s/p ORIF repair 10/2023
Right knee hematoma due to fall 10/12/23
Chronic HFpEF
Permanent Afib
Chronic warfarin OAC managed by [facility]
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
Mod MR
Mild to mod
Pulm HTN
Hypertension
Hyperlipidemia
ECHO 11/14/23: EF 50 to 55%, mild concentric LVH, severely dilated atria, moderate MR, mild to moderate with peak/mean gradients 19/10 mmHg, severe TR, PAP 69 mmHg
Plan:
-Patient presented with mechanical fall and left proximal femur fracture by imaging.
-She has permanent atrial fibrillation. Heart rates remain adequately controlled on review of tele
Maintain Ccoreg with hold parameters
-History of CVA in setting of warfarin reversal/subtherapeutic INR
INR now 1.21 s/p 5mg po vit K 08/07.
Now on Lovenox bridging with reinitiation of warfarin (dosing as per primary service), goal INR 2-3
-Still holding OP lisinopril louie-opR. will follow BP post op and resume as able, likely within the next 24 hrs.
-Has had HFpEF. proBNP was lower this admission than last in 11/2023. dry weight typically 158-159 pounds. Wt is now 168 lbs.
Will resume outpatient Lasix dose today (40 mg PO daily)
-Anemia, eval as per primary service
total time 51 min
Progress Note - Health Education Specialist
Subjective
Date of Service: August 09, 2024
denies CP, SOB, palps
Objective
Labs:
08/09/24 08:52
08/09/24 04:34
Labs
Hgb Cancelled 08/09/24 08:52
Hct Cancelled 08/09/24 08:52
Plt Count Cancelled 08/09/24 08:52
PT 15.6 Sec (11.4-14.6) H 08/09/24 04:34
INR 1.21 08/09/24 04:34
APTT 33.2 Sec (23.4-35.0) 08/09/24 09:26
Sodium 140 mmol/L (135-145) 08/09/24 04:34
Potassium 4.2 mmol/L (3.5-5.1) 08/09/24 04:34
BUN 12 mg/dl (7-17) 08/09/24 04:34
Creatinine 0.6 mg/dL (0.6-1.0) 08/09/24 04:34
Glucose 144 mg/dl (70-99) H 08/09/24 04:34
Vital Signs and I&O:
Vital Signs
Temp Pulse Resp BP Pulse Ox
98.1 F 99 18 129/70 99
08/09/24 07:51 08/09/24 07:51 08/09/24 07:51 08/09/24 07:51 08/09/24 10:28
Vital Signs
Temp Pulse Resp BP Pulse Ox
98.1 F 99 18 129/70 99
08/09/24 07:51 08/09/24 07:51 08/09/24 07:51 08/09/24 07:51 08/09/24 10:28
Intake & Output
08/07/24 08/08/24 08/09/24/10/24
06:59 06:59 06:59 06:59
Intake Total 2260 / 2260 1200 / 1200 1290 / 1290
Output Total 1100 / 1100 1775 / 1775 1150 / 1150
Balance 1160 / 1160 -575 / -575 140 / 140
Physical Exam
Physical Exam
Elederly woman, No distress
Pale
Irreg Irreg, Nl S1 and s2, no S3 or S4, 1/ AHSM and no rubs, nl PMI
Lungs CTA b/l
Ext with trace pedal edema B/L
[2024-08-09] MEDS: LASIX 40 MG PO (12:25)
[2024-08-09] MEDS: ROXICODONE 5 MG PO (12:36)
--- NOTE | 2024-08-09 13:00 | PTCARENOTE ---
Patient's HR in 120s-130s afib on monitor; patient in chair after working with PT/OT, states no complaints at this time. Cardio made aware, no new orders at this time. Patient maintained on telemetry.
--- NOTE | 2024-08-09 14:22 | W.PN.HOSP.TC ---
Today's Communication/Plan
-
pt/ot
ortho recs
Resume Coumadin bridging, already given Lovenox this morning, reports switch to full dose Lovenox with bridge to Coumadin
Assessment / Plan
Assessment / Plan
Physical Exam
General: Other (83y F in no acute distress.)
HEENT: Moist mucous membranes and PERRLA
Respiratory: Clear; No Wheezes, Rales or Rhonchi
Cardiac: S1/S2, Irregular Rhythm and Murmur (II/ RAVEN)
GI: Soft, Non Tender, Non Distended and Normal Bowel Sounds
Musculoskeletal: No Clubbing, No Cyanosis and Other (2+ pitting edema b/l LEs. TEDs stockings in place. LLE externally rotated.)
Neuro: AO x 3
A/P: Patient is an 83y F with PMH significant for A-Fib, hypertension and prior CVA who presents to ED complaining of LLE pain s/p fall at home.
Left Hip Fracture
- Admit for further evaluation and treatment.
- Bedrest, pain control, supportive care overnight.
-cards on board for clearance
-Nonweightbearing left lower extremity
-Pain control
- 08/08/24: Left peritrochanteric femur fracture with subtrochanteric extension
-can resume anticoag briding
-monitor HGb
Permanent Atrial Fibrillation
History of Embolic CVA
Coumadin Coagulopathy
- Patient on chronic Coumadin for A-Fib.
- Follow by Dr. Laura at [facility] Cardiology.
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
- Given this risk / history, would avoid active reversal.
- Bridge with heparin once INR < 2 pre-op; Lovenox to Coumadin Bridging
- Cardiology evaluation as noted above for further guidance.
- Follow INR daily.
- Continue rate-controlling medications and monitor on tele for now.
Supratherapeutic INR
� Vitamin K given
#Hypokalemia
-monitor and replete
Benign Hypertension
- lower BPs
-coreg with holding parameters
-resume lasix,
-hold ACEI
GERD
- Stable. Continue daily PPI.
Abnormal LFTs
- This is chronic / unchanged.
- No further evaluation acutely.
DVT Prophylaxis: hep ggt to coumadin bridging once able
Code Status: Full
Anticipated Discharge: > 48 hours
Subjective/Interval History
-
Date of Service: August 09, 2024
No acute events overnight, tolerated procedure well
Objective Data
-
Labs:
Laboratory Results
08/09/24 08/09/24 08/09/24
04:34 08:52 09:26
WBC 8.0 Cancelled
Hgb 7.8 L Cancelled
Hct 24.7 L Cancelled
Plt Count 176 Cancelled
PT 15.6 H
INR 1.21
APTT 33.2
Sodium 140
Potassium 4.2
Chloride 102
Carbon Dioxide 28
BUN 12
Creatinine 0.6
Glucose 144 H
Calcium 8.3 L
Total Bilirubin 0.9
AST 25
ALT 29
Alkaline Phosphatase 68
Vital Signs:
Vital Signs
Temp Pulse Resp BP Pulse Ox
98.1 F 120 16 130/47 96
08/09/24 12:48 08/09/24 12:48 08/09/24 12:48 08/09/24 12:48 08/09/24 12:48
I&O
08/08/24 08/09/24 08/10/24
06:59 06:59 06:59
Intake Total 1200 / 1200 1290 / 1290
Output Total 1775 / 1775 1150 / 1150
Balance -575 / -575 140 / 140
Review of Systems
-
History Source: Patient
All other systems: Not reviewed unless documented
Physical Exam
-
General: No Apparent Distress
HEENT: PERRLA
Respiratory: Rales
Cardiac: Regular Rhythm and S1/S2; Negative JVD
GI: Soft and Nontender
Skin: Warm and Dry; Negative Rash
Neuro: AO x 3
Psych: Calm
Data Reviewed
-
Diagnostic Radiology: Image personally visualized and interpreted and Report Reviewed by me
Labs: Labs Reviewed by me
--- NOTE | 2024-08-09 15:11 | W.PN.ORTHO ---
Today's Communication / Plan
-
83-year-old female postop day 1 status post left long cephalomedullary nail fixation for left peritrochanteric femur fracture subtrochanteric extension doing well
Weightbearing as tolerated left lower extremity
PT OT
Pain control
DVT prophylaxis: Okay to resume Coumadin per cardiology/medical team
Plan: Follow-up outpatient in the office with myself in 2 to 3 weeks for repeat evaluation with planned removal of bethanie
Subjective
.
.:
Patient reports well-controlled pain left hip and thigh. She did get a bed today to work with therapy.
Vital Signs and Labs
.
Vital Signs and Labs:
Lab Results
08/09/24 08:52
08/09/24 04:34
Temp Pulse Resp BP Pulse Ox
98.1 F 120 16 130/47 96
08/09/24 12:48 08/09/24 12:48 08/09/24 12:48 08/09/24 12:48 08/09/24 12:48
PT 15.6 Sec (11.4-14.6) H 08/09/24 04:34
INR 1.21 08/09/24 04:34
Physical Exam
-
Musculoskeletal left lower extremity
Moderate bloody drainage dressings
Moderate swelling thigh
Moving toes and ankle
Distal extremity warm and pink
[2024-08-09] MEDS: COUMADIN 2 MG PO (17:54)
[2024-08-09] MEDS: LIPITOR 40 MG PO (17:54)
[2024-08-09] MEDS: LOVENOX 80 MG SC (20:46)
[2024-08-09] MEDS: SENOKOT 17.2 MG PO (20:56)
[2024-08-10] VITALS (13 sets, daily range): BP systolic 88–141; BP diastolic 54–84; PULSE 103; BMI 28.3
[2024-08-10 05:28] LABS: INR 1.29; PT 16.4 Sec (11.4-14.6)
[2024-08-10 05:36] LABS: Hematocrit 21.4 % (37.0-47.0); Hemoglobin 6.7 g/dL (12.0-16.0); Mean Corp Hgb Conc. 31.3 g/dL (33.0-37.0); Mean Corpuscular Hgb 31.8 pg (27.0-31.0); Mean Corpuscular Volume 101.4 fL (81.0-99.0); Mean Platelet Volume 10.2 fL (7.4-10.4); Platelet Count 217 10^3/uL (130-400); Red Blood Cell Count 2.11 10^6/uL (4.20-5.40); Red Cell Dist. Width 13.5 % (11.5-14.5)
[2024-08-10 05:38] LABS: ALT (SGPT) 21 U/L (0-35); AST (SGOT) 22 U/L (14-36); Albumin 3.1 g/dl (3.5-5.0); Alkaline Phosphatase 60 U/L (38-126); Blood Urea Nitrogen 23 mg/dl (7-17); Calcium 8.2 mg/dl (8.4-10.2); Carbon Dioxide 29 mmol/L (22-30); Chloride 99 mmol/L (98-107); Estimated Creatinine Clearance 56 ml/min; Glucose 123 mg/dl (70-99); Potassium 4.3 mmol/L (3.5-5.1); Sodium 137 mmol/L (135-145); Total Bilirubin 0.9 mg/dl (0.2-1.3); Total Protein 5.3 g/dl (6.3-8.2); eGFR > 60.00
--- NOTE | 2024-08-10 06:36 | PTCARENOTE ---
Pt with hbg result 6.7 this morning, election clerk LINUX SERVER ADMINISTRATOR made aware, 1 unit of PRBC ordered and infusing. VSS
[2024-08-10] MEDS: TYLENOL 1000 MG PO ×3 (08:22→21:32)
[2024-08-10] MEDS: FEOSOL 325 MG PO (08:22)
[2024-08-10] MEDS: COREG 6.25 MG PO ×2 (08:23→17:02)
[2024-08-10] MEDS: LOVENOX 80 MG SC (08:23)
[2024-08-10] MEDS: LASIX 40 MG PO (08:23)
[2024-08-10] MEDS: COLACE 100 MG PO ×2 (08:23→20:20)
--- NOTE | 2024-08-10 10:02 | PTCARENOTE ---
1 unit of PRBCs transfused. Patient tolerated well. No c/o at this time. Call clements within reach.
--- NOTE | 2024-08-10 10:38 | W.PN.CARDCBS ---
Today's Communication / Plan
-
Agree with packed red blood cell transfusion.
Stop Lovenox
Continue warfarin
Consider IV heparin tonight
Impression / Plan
-
Primary Senior Data Architect: Dr. Laura of [facility]
Assessment:
Presentation with fall
L proximal femur fracture
Anemia
Recent weight gain, LE edema
Fall with right hip fracture s/p ORIF repair 10/2023
Right knee hematoma due to fall 10/12/23
Chronic HFpEF
Permanent Afib
Chronic warfarin OAC managed by [facility]
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
Mod MR
Mild to mod
Pulm HTN
Hypertension
Hyperlipidemia
ECHO 11/14/23: EF 50 to 55%, mild concentric LVH, severely dilated atria, moderate MR, mild to moderate with peak/mean gradients 19/10 mmHg, severe TR, PAP 69 mmHg
Plan:
-Patient presented with mechanical fall and left proximal femur fracture by imaging.
08/08: left long cephalomedullary nail fixation for left peritrochanteric femur fracture subtrochanteric extension
-She has permanent atrial fibrillation. Heart rates remain adequately controlled on review of tele
Maintain Coreg with hold parameters
-History of CVA in setting of warfarin reversal/subtherapeutic INR
INR now 1.29 s/p 5mg po vit K 08/07 and then Lovenox bridging with reinitiation of warfarin (dosing as per primary service), goal INR 2-3
Hgb down to 6.7
-Still holding OP lisinopril louie-opR. will follow BP post op and resume as able, likely within the next 24 hrs.
-Has had HFpEF. proBNP was lower this admission than last in 11/2023. dry weight typically 158-159 pounds. Wt is now 168 lbs.
Resume outpatient Lasix dose (40 mg PO daily) on 08/09, renal function stable, potassium 4.3
-Anemia now severe with hemoglobin down to 6.7
Knee looks stable
While she did have a CVA in the setting of warfarin reversal with subtherapeutic INR in the past, given severe/worsening anemia would transfuse PRBC, hold Lovenox, maintain warfarin
Can consider IV heparin tonight as bridging to therapeutic INR
Discussed with primary service.
Total time 50 min
Progress Note - Senior Data Architect
Subjective
Date of Service: August 10, 2024
She denies chest pain shortness of breath palpitations or dizziness. No worsening knee pain.
Objective
Labs:
08/10/24 04:37
08/10/24 04:37
Labs
Hgb 6.7 g/dL (12.0-16.0) L* 08/10/24 04:37
Hct 21.4 % (37.0-47.0) L 08/10/24 04:37
Plt Count 217 10^3/uL (130-400) D 08/10/24 04:37
PT 16.4 Sec (11.4-14.6) H 08/10/24 04:37
INR 1.29 08/10/24 04:37
APTT 33.2 Sec (23.4-35.0) 08/09/24 09:26
Sodium 137 mmol/L (135-145) 08/10/24 04:37
Potassium 4.3 mmol/L (3.5-5.1) 08/10/24 04:37
BUN 23 mg/dl (7-17) H 08/10/24 04:37
Creatinine 0.8 mg/dL (0.6-1.0) 08/10/24 04:37
Glucose 123 mg/dl (70-99) H 08/10/24 04:37
Vital Signs and I&O:
Vital Signs
Temp Pulse Resp BP Pulse Ox
97.8 F 103 16 96/54 99
08/10/24 09:35 08/10/24 09:35 08/10/24 09:35 08/10/24 09:35 08/10/24 09:35
Vital Signs
Temp Pulse Resp BP Pulse Ox
97.8 F 103 16 96/54 99
08/10/24 09:35 08/10/24 09:35 08/10/24 09:35 08/10/24 09:35 08/10/24 09:35
Intake & Output
08/08/24 08/09/24 08/10/24 08/11/24
06:59 06:59 06:59 06:59
Intake Total 1200 / 1200 1290 / 1290 1200 / 1200 250 / 250
Output Total 1775 / 1775 1150 / 1150
Balance -575 / -575 140 / 140 1200 / 1200 250 / 250
Physical Exam
Physical Exam
Elederly woman, No distress
Pale
Irreg Irreg, Nl S1 and s2, no S3 or S4, 1/6 AHSM and no rubs, nl PMI
Lungs CTA b/l
Ext with trace pedal edema B/L. Dressing left knee is clean and dry
--- NOTE | 2024-08-10 11:56 | W.PN.HOSP.TC ---
Today's Communication/Plan
-
stop lovenox
cbc monitoring post transfusion
maintain hgb >7
heparin ggt tonight, with coumadin bridging
Assessment / Plan
Assessment / Plan
Physical Exam
General: Other (83y F in no acute distress.)
HEENT: Moist mucous membranes and PERRLA
Respiratory: Clear; No Wheezes, Rales or Rhonchi
Cardiac: S1/S2, Irregular Rhythm and Murmur (II/ RAVEN)
GI: Soft, Non Tender, Non Distended and Normal Bowel Sounds
Musculoskeletal: No Clubbing, No Cyanosis and Other (2+ pitting edema b/l LEs. TEDs stockings in place. LLE externally rotated.)
Neuro: AO x 3
A/P: Patient is an 83y F with PMH significant for A-Fib, hypertension and prior CVA who presents to ED complaining of LLE pain s/p fall at home.
Left Hip Fracture
- Admit for further evaluation and treatment.
- Bedrest, pain control, supportive care overnight.
-cards on board for clearance
-Nonweightbearing left lower extremity
-Pain control
- 08/08/24: Left peritrochanteric femur fracture with subtrochanteric extension
-can resume anticoag briding
-monitor HGb
Acute blood loss anemia
� Postprocedure
� Transfuse 1 unit today
� Stop Lovenox, transition to heparin drip this evening, lower PTT goal
� Monitor CBC, site of procedure
� Continue blood loss, hemoglobin drop then may need to consider stopping anticoagulation temporarily
Permanent Atrial Fibrillation
History of Embolic CVA
Coumadin Coagulopathy
- Patient on chronic Coumadin for A-Fib.
- Follow by Dr. Laura at [facility] Cardiology.
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
- Given this risk / history, would avoid active reversal.
- Bridge with heparin once INR < 2 pre-op; Hep to Coumadin Bridging
- Cardiology evaluation as noted above for further guidance.
- Follow INR daily.
- Continue rate-controlling medications and monitor on tele for now.
Supratherapeutic INR
� Vitamin K given preop
#Hypokalemia
-monitor and replete
Benign Hypertension
- lower BPs
-coreg with holding parameters
-resume lasix,
-hold ACEI
GERD
- Stable. Continue daily PPI.
Abnormal LFTs
- This is chronic / unchanged.
- No further evaluation acutely.
DVT Prophylaxis: hep ggt to coumadin bridging
Code Status: Full
Anticipated Discharge: > 48 hours
Subjective/Interval History
-
Date of Service: August 10, 2024
No clearance, hemoglobin drop, transfusing this morning
Objective Data
-
Labs:
Laboratory Results
08/10/24 08/10/24
04:37 11:29
WBC 10.0 Pending
Hgb 6.7 L* Pending
Hct 21.4 L Pending
Plt Count 217 D Pending
PT 16.4 H
INR 1.29
APTT Pending
Sodium 137
Potassium 4.3
Chloride 99
Carbon Dioxide 29
BUN 23 H
Creatinine 0.8
Glucose 123 H
Calcium 8.2 L
Total Bilirubin 0.9
AST 22
ALT 21
Alkaline Phosphatase 60
Vital Signs:
Vital Signs
Temp Pulse Resp BP Pulse Ox
98.4 F 106 20 99/59 96
08/10/24 11:10 08/10/24 11:10 08/10/24 11:10 08/10/24 11:10 08/10/24 11:10
I&O
08/09/24 08/10/24 08/11/24
06:59 06:59 06:59
Intake Total 1290 / 1290 1200 / 1200 250 / 250
Output Total 1150 / 1150
Balance 140 / 140 1200 / 1200 250 / 250
Review of Systems
-
History Source: Patient
All other systems: Not reviewed unless documented
Data Reviewed
-
Diagnostic Radiology: Image personally visualized and interpreted and Report Reviewed by me
Labs: Labs Reviewed by me
[2024-08-10 12:09] LABS: Hematocrit 24.7 % (37.0-47.0); Mean Corp Hgb Conc. 32.4 g/dL (33.0-37.0); Mean Corpuscular Hgb 31.5 pg (27.0-31.0); Mean Corpuscular Volume 97.2 fL (81.0-99.0); Mean Platelet Volume 9.8 fL (7.4-10.4); Platelet Count 205 10^3/uL (130-400); Red Blood Cell Count 2.54 10^6/uL (4.20-5.40); Red Cell Dist. Width 15.2 % (11.5-14.5); White Blood Cell Count 12.6 10^3/uL (4.8-10.8)
[2024-08-10 12:19] LABS: APTT 47.5 Sec (23.4-35.0)
--- NOTE | 2024-08-10 12:21 | CM ---
Chart reviewed. Cr with pt and her at bedside
Discussed SNF - prefers [facility]. Given option list from Medicare.gov
Referral sent in [facility] for [facility]
Plan - anticipate SNF when bed obtained and medically ready
[2024-08-10] MEDS: COUMADIN 2 MG PO (17:00)
[2024-08-10] MEDS: LIPITOR 40 MG PO (17:00)
[2024-08-10] MEDS: SENOKOT 17.2 MG PO (21:32)
[2024-08-11] VITALS (10 sets, daily range): BP systolic 99–144; BP diastolic 56–84; PULSE 104; O2SAT 96; BMI 28.2
[2024-08-11 02:28] LABS: APTT 131.1 Sec (23.4-35.0)
[2024-08-11 06:34] LABS: Hematocrit 21.7 % (37.0-47.0); Mean Corp Hgb Conc. 32.3 g/dL (33.0-37.0); Mean Corpuscular Hgb 30.8 pg (27.0-31.0); Mean Corpuscular Volume 95.6 fL (81.0-99.0); Mean Platelet Volume 10.3 fL (7.4-10.4); Platelet Count 185 10^3/uL (130-400); Red Blood Cell Count 2.27 10^6/uL (4.20-5.40); Red Cell Dist. Width 15.6 % (11.5-14.5); White Blood Cell Count 10.9 10^3/uL (4.8-10.8)
[2024-08-11 06:40] LABS: INR 1.45; PT 17.9 Sec (11.4-14.6)
[2024-08-11 06:42] LABS: APTT 91.5 Sec (23.4-35.0)
[2024-08-11 07:06] LABS: ALT (SGPT) 18 U/L (0-35); AST (SGOT) 25 U/L (14-36); Albumin 2.7 g/dl (3.5-5.0); Alkaline Phosphatase 64 U/L (38-126); Blood Urea Nitrogen 25 mg/dl (7-17); Calcium 7.9 mg/dl (8.4-10.2); Carbon Dioxide 30 mmol/L (22-30); Chloride 100 mmol/L (98-107); Estimated Creatinine Clearance 57 ml/min; Glucose 94 mg/dl (70-99); Potassium 3.7 mmol/L (3.5-5.1); Sodium 137 mmol/L (135-145); Total Bilirubin 1.4 mg/dl (0.2-1.3); Total Protein 4.8 g/dl (6.3-8.2); eGFR > 60.00
[2024-08-11] MEDS: TYLENOL 1000 MG PO ×3 (07:57→21:36)
[2024-08-11] MEDS: FEOSOL 325 MG PO (07:58)
[2024-08-11] MEDS: COREG 6.25 MG PO ×2 (07:58→17:35)
[2024-08-11] MEDS: COLACE 100 MG PO ×2 (07:58→21:36)
[2024-08-11] MEDS: LASIX 40 MG PO (07:58)
[2024-08-11 10:18] LABS: APTT 71.3 Sec (23.4-35.0)
--- NOTE | 2024-08-11 11:53 | CM ---
Patient seen at bedside.
Received call from Elvia in admissions that [facility] will accept patient when medically stable
PLAN: SNF
--- NOTE | 2024-08-11 12:15 | PTCARENOTE ---
Patients L distal aquacel on L hip is saturated. Dr. Page ordered to change that distal aquacel dressing.
--- NOTE | 2024-08-11 13:44 | W.PN.CARDCBS ---
Addendum entered and electronically signed by Nat Norton DO 08/11/24 14:27:
I saw and examined the patient.
The Upholstery Covers Inspector's note was reviewed and I agree with the note.
Comment: Seen and examined. Patient offers no specific complaints. Denies chest pain or pressure, shortness of breath or dizziness. Complaining of left leg pain with movement. Anticipates that she will be discharged to a SNF
General: No acute distress, AAOX3
Heart: Regular, positive S1/S2, 2/6 RAVEN URSB and 2/6 SM LSB
Lungs: CTA b/l, negative wheezes/rales/rhonchi
Abd: Positive BS, NT/ND, neg rebound/rigidity/guarding
Ext: +1 B/L LE edema. Status post left femur repair
Plan:
Fall with left proximal femur fracture on admission and is now s/p operative repair 08/08/24.
-Postop surgical supportive care
-Monitor H&H
-Consider transfusion with hemoglobin dropping down today to 7 g/dL from 8 after transfusion yesterday
Permanent Afib and CVA in the setting of FFP reversal and subtherapeutic INR after appendectomy in 2017.
-Patient will need to be bridged with heparin for INR is less than 2. INR up to 1.45 on 08/11/24.
-Will recheck INR later tonight with repeat H&H. Will discontinue heparin once INR greater than 2
-INRs managed by [facility] using a home monitor. INR goal is 2-3. Patient has not switched to NOAC in the past because warfarin is her preference.
-Monitor H&H closely with blood thinner
-HRs controlled with outpatient dose of Coreg 6.25 mg BID
-Patient previously on digoxin for HR control, but this was stopped 10/2023
Postop hypotension
-Blood pressures reasonable today but still holding lisinopril
-Outpatient dose of Lasix 40 mg PO daily was resumed 08/09/24, but no real improvement in weight. Dry weight typically 158-159 lbs. Weight is now 169 lbs. will give a dose of IV Lasix 20 mg today
Original Note:
Today's Communication / Plan
-
Cont Heparin gtt bridge for h/o CVA when INR is low
Impression / Plan
-
PCP: Dr. Sparks
Primary Finish Opener: Dr. aLura of [facility]
Assessment:
Presentation with fall
L proximal femur fracture
Anemia
Recent weight gain, LE edema
Fall with right hip fracture s/p ORIF repair 10/2023
Right knee hematoma due to fall 10/12/23
Chronic HFpEF
Permanent Afib
Chronic warfarin OAC managed by [facility]
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
Mod MR
Mild to mod
Pulm HTN
Hypertension
Hyperlipidemia
ECHO 11/14/23: EF 50 to 55%, mild concentric LVH, severely dilated atria, moderate MR, mild to moderate with peak/mean gradients 19/10 mmHg, severe TR, PAP 69 mmHg
Plan:
-Patient had a fall with left proximal femur fracture on admission and is now s/p operative repair 08/08/24.
-Patient with a h/o permanent Afib and CVA in the setting of FFP reversal and subtherapeutic INR after appendectomy in 2017. Patient will need to be bridged with heparin for INR is less than 2. INR up to 1.45 on 08/11/24.
-INRs managed by [facility] using a home monitor. INR goal is 2-3. Patient has not switched to NOAC in the past because warfarin is her preference.
-Hgb as low as 6.8 and then improved after 1 unit PRBCs on 08/10/24. Hgb now down to 7 on 08/11/24.
-HRs controlled with outpatient dose of Coreg 6.25 mg BID
-Patient previously on digoxin for HR control, but this was stopped 10/2023
-Outpatient dose of lisinopril 2.5 mg daily remains on hold for intermittent hypotension
-Outpatient dose of Lasix 40 mg PO daily was resumed 08/09/24, but no real improvement in weight. Dry weight typically 158-159 lbs. Weight is now 169 lbs.
Progress Note - Finish Opener
Subjective
Date of Service: August 11, 2024
Tired, no pain
Objective
Labs:
08/11/24 05:09
08/11/24 05:09
Labs
Hgb 7.0 g/dL (12.0-16.0) L 08/11/24 05:09
Hct 21.7 % (37.0-47.0) L 08/11/24 05:09
Plt Count 185 10^3/uL (130-400) 08/11/24 05:09
PT 17.9 Sec (11.4-14.6) H 08/11/24 05:09
INR 1.45 08/11/24 05:09
APTT 71.3 Sec (23.4-35.0) H 08/11/24 09:35
Sodium 137 mmol/L (135-145) 08/11/24 05:09
Potassium 3.7 mmol/L (3.5-5.1) 08/11/24 05:09
BUN 25 mg/dl (7-17) H 08/11/24 05:09
Creatinine 0.8 mg/dL (0.6-1.0) 08/11/24 05:09
Glucose 94 mg/dl (70-99) 08/11/24 05:09
Vital Signs and I&O:
Vital Signs
Temp Pulse Resp BP Pulse Ox
98.0 F 96 16 117/56 96
08/11/24 12:39 08/11/24 12:39 08/11/24 12:39 08/11/24 12:39 08/11/24 12:39
Vital Signs
Temp Pulse Resp BP Pulse Ox
98.0 F 96 16 117/56 96
08/11/24 12:39 08/11/24 12:39 08/11/24 12:39 08/11/24 12:39 08/11/24 12:39
Intake & Output
08/09/24 08/10/24 08/11/24 08/12/24
06:59 06:59 06:59 06:59
Intake Total 1290 / 1290 1200 / 1200 970 / 970 0 / 0
Output Total 1150 / 1150 700 / 700
Balance 140 / 140 1200 / 1200 270 / 270 0 / 0
Physical Exam
Physical Exam
GEN: AAOx3
HEENT: EOMI, MMM
LUNGS: No audible wheeze
CV: Afib on tele
ABD: ND
EXT: +1 B/L LE edema
NEURO: Gross non-focal
SKIN: Warm, dry and pink. No rash
--- NOTE | 2024-08-11 14:02 | W.PN.HOSP.TC ---
Today's Communication/Plan
-
Transfuse 1 unit of blood
Continue heparin drip
Assessment / Plan
Assessment / Plan
A/P: Patient is an 83y F with PMH significant for A-Fib, hypertension and prior CVA who presents to ED complaining of LLE pain s/p fall at home.
CVS: S1-S2 irregular, systolic murmur at apex and aortic area
Chest: CTA B/L
Abdomen: Soft, NT / Bowel sounds present
Extremities: Left leg-Aquacel baggy with bleeding .
BASEBALL SCOUT: Non focal exam
Echo 11/14/2023-normal LV size. EF 50 to 55%. Mild concentric LVH. Moderate MR. Mild to moderate . Severe TR. Pulmonary artery pressure 69 mmHg.
# Left Hip Fracture
-08/08/24: Left peritrochanteric femur fracture with subtrochanteric extension
-Continue heparin
-Monitor HGb
# Acute blood loss anemia
� Postprocedure
� Transfused 1 unit 08/10/24, transfuse 1 more unit 08/11/2024
� Heparin drip bridging.
� Monitor CBC
-Requested orthopedics to see if the Aquacel needs to be changed.
# Permanent Atrial Fibrillation
History of Embolic CVA
Coumadin Coagulopathy resolved
- Patient on chronic Coumadin for A-Fib.
- Follow by Dr. Laura at [facility].
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
- Cardiology evaluation as noted above for further guidance.
- Continue Coreg
# Valvular heart disease-moderate MR, mild to moderate , severe TR, pulmonary artery pressure 69 mmHg.
# Coagulopathy from Coumadin resolved
# Hypokalemia-resolved
# Benign Hypertension-continue Coreg. Hold lisinopril
# GERD- Stable. Continue daily PPI.
# Hypoalbuminemia
# DVT Prophylaxis: hep gtt to Coumadin bridging
# Code Status: Full
Discussed with cardiology
Discussed with orthopedics
Called , left message
Anticipated Discharge: 24 - 48 hours
Subjective/Interval History
-
Date of Service: August 11, 2024
Objective Data
-
Labs:
Laboratory Results
08/11/24 08/11/24 08/11/24
02:01 05:09 09:35
WBC 10.9 H
Hgb 7.0 L
Hct 21.7 L
Plt Count 185
PT 17.9 H
INR 1.45
APTT 131.1 H 91.5 H 71.3 H
Sodium 137
Potassium 3.7
Chloride 100
Carbon Dioxide 30
BUN 25 H
Creatinine 0.8
Glucose 94
Calcium 7.9 L
Total Bilirubin 1.4 H
AST 25
ALT 18
Alkaline Phosphatase 64
08/11/24
16:35
WBC
Hgb
Hct
Plt Count
PT
INR
APTT Pending
Sodium
Potassium
Chloride
Carbon Dioxide
BUN
Creatinine
Glucose
Calcium
Total Bilirubin
AST
ALT
Alkaline Phosphatase
Vital Signs:
Vital Signs
Temp Pulse Resp BP Pulse Ox
98.0 F 96 16 117/56 96
08/11/24 12:39 08/11/24 12:39 08/11/24 12:39 08/11/24 12:39 08/11/24 12:39
I&O
08/10/24 08/11/24 08/12/24
06:59 06:59 06:59
Intake Total 1200 / 1200 970 / 970 0 / 0
Output Total 700 / 700
Balance 1200 / 1200 270 / 270 0 / 0
[2024-08-11] MEDS: LASIX 20 MG IV (15:02)
[2024-08-11 17:18] LABS: APTT 77.6 Sec (23.4-35.0)
[2024-08-11] MEDS: COUMADIN 3 MG PO (17:35)
[2024-08-11] MEDS: LIPITOR 40 MG PO (17:35)
[2024-08-11] MEDS: SENOKOT 17.2 MG PO (21:36)
[2024-08-11 23:09] LABS: APTT 95.2 Sec (23.4-35.0)
[2024-08-12] VITALS (7 sets, daily range): BP systolic 98–139; BP diastolic 57–95; BMI 27.4
[2024-08-12] MEDS: HEPARIN 25000 UNITS/250 ML IV (04:08)
[2024-08-12 05:35] LABS: Hematocrit 25.1 % (37.0-47.0); Hemoglobin 8.3 g/dL (12.0-16.0); Mean Corp Hgb Conc. 33.1 g/dL (33.0-37.0); Mean Corpuscular Hgb 31.8 pg (27.0-31.0); Mean Corpuscular Volume 96.2 fL (81.0-99.0); Mean Platelet Volume 9.9 fL (7.4-10.4); Platelet Count 186 10^3/uL (130-400); Red Blood Cell Count 2.61 10^6/uL (4.20-5.40); Red Cell Dist. Width 15.6 % (11.5-14.5); White Blood Cell Count 11.2 10^3/uL (4.8-10.8)
[2024-08-12 05:42] LABS: INR 1.63; PT 19.8 Sec (11.4-14.6)
[2024-08-12 05:48] LABS: APTT 151.1 Sec (23.4-35.0)
[2024-08-12 06:29] LABS: ALT (SGPT) 19 U/L (0-35); AST (SGOT) 28 U/L (14-36); Albumin 2.8 g/dl (3.5-5.0); Alkaline Phosphatase 73 U/L (38-126); Blood Urea Nitrogen 23 mg/dl (7-17); Calcium 8.1 mg/dl (8.4-10.2); Carbon Dioxide 31 mmol/L (22-30); Chloride 100 mmol/L (98-107); Estimated Creatinine Clearance 64 ml/min; Glucose 97 mg/dl (70-99); Potassium 3.5 mmol/L (3.5-5.1); Sodium 138 mmol/L (135-145); eGFR > 60.00
[2024-08-12] MEDS: LASIX 40 MG PO (08:19)
[2024-08-12] MEDS: FEOSOL 325 MG PO (08:20)
[2024-08-12] MEDS: TYLENOL 1000 MG PO ×3 (08:20→21:22)
[2024-08-12] MEDS: COLACE 100 MG PO ×2 (08:20→21:22)
[2024-08-12] MEDS: COREG 6.25 MG PO ×2 (08:20→17:21)
--- NOTE | 2024-08-12 08:37 | W.PN.CARDCBS ---
Addendum entered and electronically signed by Adria Johansen MD 08/12/24 11:09:
I saw and examined the patient.
The Lead Cytogenetic Technologist's note was reviewed and I agree with the note.
Comment:
GEN: No distress, awake, Ox3
HEENT: supple, anicteric, mmm
LUNGS: CTA, no wheezes/rales
CV: Irreg, S1/S2, 1/6 syst LSB, no gallop
ABD: soft, BS+, NT/ND
EXT: No edema
NEURO: Gross non-focal
SKIN: No rash
Plan:
INR at 1.63. Will give warfarin 3 mg tonight and continue IV heparin.
A-fib overall remains relatively well rate controlled. Continue Coreg.
Continue Lasix 40 mg daily.
Hemoglobin up to 8.3 status post transfusion.
Hopeful for discharge tomorrow
Original Note:
Today's Communication / Plan
-
Warfarin 3 mg again tonight
Impression / Plan
-
PCP: Dr. Sparks
Primary Red Hat Linux Administrator: Dr. Laura of [facility]
Assessment:
Presentation with fall
L proximal femur fracture
Anemia
Recent weight gain, LE edema
Fall with right hip fracture s/p ORIF repair 10/2023
Right knee hematoma due to fall 10/12/23
Chronic HFpEF
Permanent Afib
Chronic warfarin OAC managed by [facility]
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
Mod MR
Mild to mod
Pulm HTN
Hypertension
Hyperlipidemia
ECHO 11/14/23: EF 50 to 55%, mild concentric LVH, severely dilated atria, moderate MR, mild to moderate with peak/mean gradients 19/10 mmHg, severe TR, PAP 69 mmHg
Plan:
-INR up to 1.63 on 08/12/24 following slightly higher dose of warfarin 3 mg overnight. Will give another warfarin 3 mg 08/12/24 PM.
-INR goal 2-3. INRs managed by [facility] using a home monitor. INR goal is 2-3. Patient has not switched to NOAC in the past because warfarin is her preference.
-Patient with a h/o permanent Afib and CVA in the setting of FFP reversal and subtherapeutic INR after appendectomy in 2017. Patient will need to be bridged with heparin for INR is less than 2.
-Patient had a fall with left proximal femur fracture on admission and is now s/p operative repair 08/08/24.
-Patient was given a 2nd unit of PRBCs 08/11/24 and Hgb improved to 8.3 on 08/12/24.
-HRs controlled with outpatient dose of Coreg 6.25 mg BID
-Patient previously on digoxin for HR control, but this was stopped 10/2023
-Outpatient dose of lisinopril 2.5 mg daily remains on hold for intermittent hypotension
-Outpatient dose of Lasix 40 mg PO daily was resumed 08/09/24, but no real improvement in weight. Dry weight typically 158-159 lbs. Weight is now 164 lbs.
Progress Note - Red Hat Linux Administrator
Subjective
Date of Service: August 12, 2024
Feels well, no chest pain
Objective
Labs:
08/12/24 05:21
08/12/24 05:21
Labs
Hgb 8.3 g/dL (12.0-16.0) L 08/12/24 05:21
Hct 25.1 % (37.0-47.0) L 08/12/24 05:21
Plt Count 186 10^3/uL (130-400) 08/12/24 05:21
PT 19.8 Sec (11.4-14.6) H 08/12/24 05:21
INR 1.63 08/12/24 05:21
APTT 151.1 Sec (23.4-35.0) H* 08/12/24 05:21
Sodium 138 mmol/L (135-145) 08/12/24 05:21
Potassium 3.5 mmol/L (3.5-5.1) 08/12/24 05:21
BUN 23 mg/dl (7-17) H 08/12/24 05:21
Creatinine 0.7 mg/dL (0.6-1.0) 08/12/24 05:21
Glucose 97 mg/dl (70-99) 08/12/24 05:21
Vital Signs and I&O:
Vital Signs
Temp Pulse Resp BP Pulse Ox
98.7 F 94 16 135/75 97
08/12/24 03:05 08/12/24 03:05 08/12/24 03:05 08/12/24 08:20 08/12/24 03:05
Vital Signs
Temp Pulse Resp BP Pulse Ox
98.7 F 94 16 135/75 97
08/12/24 03:05 08/12/24 03:05 08/12/24 03:05 08/12/24 08:20 08/12/24 03:05
Intake & Output
08/10/24 08/11/24 08/12/24 08/13/24
06:59 06:59 06:59 06:59
Intake Total 1200 / 1200 970 / 970 1030 / 1030
Output Total 700 / 700 2000 / 2000
Balance 1200 / 1200 270 / 270 -970 / -970
Physical Exam
Physical Exam
GEN: AAOx3
HEENT: EOMI, MMM
LUNGS: No audible wheeze
CV: Afib on tele
ABD: ND
EXT: +1 B/L LE edema
NEURO: Gross non-focal
SKIN: Warm, dry and pink. No rash
--- NOTE | 2024-08-12 10:45 | CM ---
Patient seen at bedside.
IMM explained & signed. In chart
Hgb today 8.3
Updated Elvia at [facility]
PLAN: [facility]
report #: [phone]
fax #: [phone]
[2024-08-12] MEDS: ROXICODONE 5 MG PO (10:53)
--- NOTE | 2024-08-12 11:18 | W.PN.HOSP.TC ---
Addendum entered and electronically signed by Dayana Sharp MD 08/12/24 17:44:
traumatic hip fracture
Original Note:
Today's Communication/Plan
-
Continue heparin drip and Coumadin bridging
As long as INR is theraputic and hemoglobin is stable patient can be discharged to rehab tomorrow.
Assessment / Plan
Assessment / Plan
A/P: Patient is an 83y F with PMH significant for A-Fib, hypertension and prior CVA who presents to ED complaining of LLE pain s/p fall at home.
CVS: S1-S2 irregular, systolic murmur at apex and aortic area
Chest: CTA B/L
Abdomen: Soft, NT / Bowel sounds present
Extremities: Left leg-mild shadowing at the Acquacel.
Echo 11/14/2023-normal LV size. EF 50 to 55%. Mild concentric LVH. Moderate MR. Mild to moderate . Severe TR. Pulmonary artery pressure 69 mmHg.
# Left Hip Fracture
-08/08/24: Left peritrochanteric femur fracture with subtrochanteric extension
-Continue heparin
-Monitor Hb
# Acute blood loss anemia
� Postprocedure
� Transfused 1 unit 08/10/24, transfuse 1 more unit 08/11/2024
� Heparin drip bridging.
� Monitor CBC
# Permanent Atrial Fibrillation
History of Embolic CVA
Coumadin Coagulopathy resolved
- Patient on chronic Coumadin for A-Fib.
- Follow by Dr. Laura at [facility].
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
- Cardiology evaluation as noted above for further guidance.
- Continue Coreg
-Bridging from heparin drip to Coumadin. INR 1.63 today.
# Valvular heart disease-moderate MR, mild to moderate , severe TR, pulmonary artery pressure 69 mmHg.
# Coagulopathy from Coumadin resolved
# Hypokalemia-resolved
# Benign Hypertension-continue Coreg. Hold lisinopril
# GERD- Stable. Continue daily PPI.
# Hypoalbuminemia
# DVT Prophylaxis: hep gtt to Coumadin bridging
# Code Status: Full
Discussed with cardiology
Discussed with
Anticipated Discharge: Within 24 hours
Subjective/Interval History
-
Date of Service: August 12, 2024
Objective Data
-
Labs:
Laboratory Results
08/12/24 08/12/24
05:21 12:50
WBC 11.2 H
Hgb 8.3 L
Hct 25.1 L
Plt Count 186
PT 19.8 H
INR 1.63
APTT 151.1 H* Pending
Sodium 138
Potassium 3.5
Chloride 100
Carbon Dioxide 31 H
BUN 23 H
Creatinine 0.7
Glucose 97
Calcium 8.1 L
Total Bilirubin 2.0 H
AST 28
ALT 19
Alkaline Phosphatase 73
Vital Signs:
Vital Signs
Temp Pulse Resp BP Pulse Ox
98.8 F 106 16 135/75 100
08/12/24 08:00 08/12/24 08:00 08/12/24 08:00 08/12/24 08:20 08/12/24 08:00
I&O
08/11/24 08/12/24 08/13/24
06:59 06:59 06:59
Intake Total 970 / 970 1030 / 1030
Output Total 700 / 700 1999 / 1999
Balance 270 / 270 -970 / -970
[2024-08-12 13:13] LABS: APTT 57.5 Sec (23.4-35.0)
--- NOTE | 2024-08-12 13:28 | PN.CDI ---
CDI
- -
CDI:
Physician Documentation Request
Admit Date: 08/06/24 03:51
Dear Doctor Lila,
Please review the following and provide your response in the progress notes.
Clinical Indicators:
Pt admitted with Left Hip Fracture
Documented per ED, '....States that she had clothing on the bed and it was getting late. States that she was moving them from the bed to the chair. States that she was walking around the corner of the bed to go out and her foot stuck and she fell.
States that she landed on the left hip and rolled to her back....'
Home Meds include Vitamin D3 1,000 units PO daily
Documented per past visit progress note 10/16/23, ' Right Hip Fracture, Multifactorial due to low level trauma and possibly age-related osteopenia/osteoporosis...'
Bone Density 01/18/2023,' IMPRESSION: Osteopenia. This carries a mild increased risk for fracture.'
Please provide the suspected etiology of the Left Hip Fracture:
Multifactorial due to low level fall/Age related osteoporosis
Due to low level fall only
Other ( please specify)
Use of terms such as suspected, likely, concern for, or probable (associated with a specific diagnosis that is being evaluated, monitored, or treated as if it exists) are acceptable and can be coded in the inpatient setting, when documented at the
time of discharge.
Thank you,
Theresa Campos RN
CDI Specialist
[employer]
Please use your independent medical judgment in providing your response.
[2024-08-12] MEDS: LIPITOR 40 MG PO (17:20)
[2024-08-12] MEDS: COUMADIN 3 MG PO (17:21)
[2024-08-12 20:01] LABS: APTT 117.8 Sec (23.4-35.0)
[2024-08-12] MEDS: SENOKOT 17.2 MG PO (21:22)
[2024-08-13 03:32] VITALS: BP 117/94
[2024-08-13 05:20] VITALS: BMI 27.0
[2024-08-13] MEDS: COREG 6.25 MG PO (08:12)
[2024-08-13] MEDS: TYLENOL 1000 MG PO (08:17)
[2024-08-13] MEDS: LASIX 40 MG PO (08:17)
[2024-08-13] MEDS: COLACE 100 MG PO (08:17)
[2024-08-13] MEDS: FEOSOL 325 MG PO (08:17)
[2024-08-13 08:18] VITALS: BP 132/71
--- NOTE | 2024-08-13 09:11 | W.PN.CARDCBS ---
Addendum entered and electronically signed by Douglas Partida MD 08/13/24 15:22:
I saw and examined the patient.
The Patient Support Associate's note was reviewed and I agree with the note.
Comment: Briefly, 83-year-old woman with past medical history of permanent atrial fibrillation on chronic warfarin and prior CVA who presents following femur fracture and is now status post fixation with orthopedic surgery
Has been bridged with heparin back to therapeutic INR, 2.0 this morning
Okay to stop heparin
Would resume prior warfarin dosing 2 mg daily
Stable for discharge from my perspective
She should follow-up with her primary single spindle screw machine operator at [facility], Barney Laura
Original Note:
Today's Communication / Plan
-
KCl 40 meq now
Warfarin 2 mg daily
Stable for d/c from a cardiac standpoint
52 min including face to face time and coordination of care
Impression / Plan
-
PCP: Dr. Sparks
Primary Bulk Plant Supervisor: Dr. Laura of [facility]
Assessment:
Presentation with fall
L proximal femur fracture
Anemia
Recent weight gain, LE edema
Fall with right hip fracture s/p ORIF repair 10/2023
Right knee hematoma due to fall 10/12/23
Chronic HFpEF
Permanent Afib
Chronic warfarin OAC managed by [facility]
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
Mod MR
Mild to mod
Pulm HTN
Hypertension
Hyperlipidemia
Hypokalemia
ECHO 11/14/23: EF 50 to 55%, mild concentric LVH, severely dilated atria, moderate MR, mild to moderate with peak/mean gradients 19/10 mmHg, severe TR, PAP 69 mmHg
Plan:
-INR up to 2.01 on 08/13/24 following warfarin 3 mg on 08/11/24 and 08/12/24. Agree with hospitalist attending plan to reduce warfarin dose back to outpatient dose of 2 mg daily upon d/c.
-Heparin gtt stopped by me
-INR goal 2-3. INRs managed by [facility] using a home monitor. INR goal is 2-3. Patient has not switched to NOAC in the past because warfarin is her preference.
-Patient with a h/o permanent Afib and CVA in the setting of FFP reversal and subtherapeutic INR after appendectomy in 2017. Patient will need to be bridged with heparin for INR is less than 2.
-Patient had a fall with left proximal femur fracture on admission and is now s/p operative repair 08/08/24.
-Patient was given a 2nd unit of PRBCs 08/11/24 and Hgb improved.
-HRs controlled with outpatient dose of Coreg 6.25 mg BID
-Patient previously on digoxin for HR control, but this was stopped 10/2023
-Outpatient dose of lisinopril 2.5 mg daily remains on hold for intermittent hypotension
-Outpatient dose of Lasix 40 mg PO daily was resumed 08/09/24, but no real improvement in weight. Dry weight typically 158-159 lbs. Weight is now 162 lbs. She appears to be autodiuresing on her usual dose of Lasix following IVFs and PRBCs earlier
this admission.
-KCl 40 meq now ordered by me
-Patient will continue to follow up with Dr. Laura for her outpatient cardiology care and use for her hospitalization needs as she does not like [facility].
Progress Note - Bulk Plant Supervisor
Subjective
Date of Service: August 13, 2024
Feels well
Objective
Labs:
Labs
Hgb 8.3 g/dL (12.0-16.0) L 08/12/24 05:21
Hct 25.1 % (37.0-47.0) L 08/12/24 05:21
Plt Count 186 10^3/uL (130-400) 08/12/24 05:21
PT 19.8 Sec (11.4-14.6) H 08/12/24 05:21
INR 1.63 08/12/24 05:21
APTT 126.0 Sec (23.4-35.0) H 08/13/24 01:21
Sodium 138 mmol/L (135-145) 08/12/24 05:21
Potassium 3.5 mmol/L (3.5-5.1) 08/12/24 05:21
BUN 23 mg/dl (7-17) H 08/12/24 05:21
Creatinine 0.7 mg/dL (0.6-1.0) 08/12/24 05:21
Glucose 97 mg/dl (70-99) 08/12/24 05:21
Vital Signs and I&O:
Vital Signs
Temp Pulse Resp BP Pulse Ox
98.3 F 103 18 132/71 99
08/13/24 08:18 08/13/24 08:18 08/13/24 08:18 08/13/24 08:18 08/13/24 08:50
Vital Signs
Temp Pulse Resp BP Pulse Ox
98.3 F 103 18 132/71 99
08/13/24 08:18 08/13/24 08:18 08/13/24 08:18 08/13/24 08:18 08/13/24 08:50
Intake & Output
08/11/24 08/12/24 08/13/24 08/14/24
06:59 06:59 06:59 06:59
Intake Total 970 / 970 1030 / 1030 720 / 720
Output Total 700 / 700 2000 / 2000 1200 / 1200
Balance 270 / 270 -970 / -970 -480 / -480
Physical Exam
Physical Exam
GEN: AAOx3
HEENT: EOMI, MMM
LUNGS: No audible wheeze
CV: Afib on tele
ABD: ND
EXT: Trace B/L LE edema
NEURO: Gross non-focal
SKIN: Warm, dry and pink. No rash
[2024-08-13 09:13] LABS: Hematocrit 25.6 % (37.0-47.0); Hemoglobin 8.1 g/dL (12.0-16.0); Mean Corp Hgb Conc. 31.6 g/dL (33.0-37.0); Mean Corpuscular Hgb 31.6 pg (27.0-31.0); Mean Platelet Volume 10.4 fL (7.4-10.4); Platelet Count 226 10^3/uL (130-400); Red Blood Cell Count 2.56 10^6/uL (4.20-5.40); White Blood Cell Count 10.9 10^3/uL (4.8-10.8)
[2024-08-13 09:14] LABS: ALT (SGPT) 16 U/L (0-35); AST (SGOT) 24 U/L (14-36); Albumin 2.8 g/dl (3.5-5.0); Alkaline Phosphatase 67 U/L (38-126); Blood Urea Nitrogen 16 mg/dl (7-17); Calcium 8.5 mg/dl (8.4-10.2); Carbon Dioxide 31 mmol/L (22-30); Chloride 99 mmol/L (98-107); Estimated Creatinine Clearance 66 ml/min; Glucose 95 mg/dl (70-99); Potassium 3.2 mmol/L (3.5-5.1); Sodium 137 mmol/L (135-145); Total Bilirubin 2.5 mg/dl (0.2-1.3); eGFR > 60.00
--- NOTE | 2024-08-13 09:20 | W.PN.HOSP.TC ---
Today's Communication/Plan
-
awaiting INR then OK for DC to SNF
Assessment / Plan
Assessment / Plan
A/P: Patient is an 83y F with PMH significant for A-Fib, hypertension and prior CVA who presents to ED complaining of LLE pain s/p fall at home.
CVS: S1-S2 irregular, systolic murmur at apex and aortic area
Chest: CTA B/L
Abdomen: Soft, NT / Bowel sounds present
Extremities: Left leg-mild shadowing at the Acquacel.
Echo 11/14/2023-normal LV size. EF 50 to 55%. Mild concentric LVH. Moderate MR. Mild to moderate . Severe TR. Pulmonary artery pressure 69 mmHg.
# Left Hip Fracture
-08/08/24: Left peritrochanteric femur fracture with subtrochanteric extension
-DVT PPx - heparin bridge
-Hg stable
-PT/OT - eventual SNF
# Acute blood loss anemia
� Postprocedure
� Transfused 1 unit 08/10/24, transfuse 1 more unit 08/11/2024
� Heparin drip bridging.
� Monitor CBC = repeat in one week
# Permanent Atrial Fibrillation
History of Embolic CVA
Coumadin Coagulopathy resolved
- Patient on chronic Coumadin for A-Fib.
- Follow by Dr. Laura at [facility] Card[facility].
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
- Cardiology evaluation as noted above for further guidance.
- Continue Coreg
-Bridging from heparin drip to Coumadin. INR 1.63 today.
# Valvular heart disease-moderate MR, mild to moderate , severe TR, pulmonary artery pressure 69 mmHg.
# Coagulopathy from Coumadin resolved
# Hypokalemia-resolved
# Benign Hypertension-continue Coreg. Hold lisinopril
# GERD- Stable. Continue daily PPI.
# Hypoalbuminemia
# DVT Prophylaxis: hep gtt to Coumadin bridging
# Code Status: Full
Discussed with cardiology
Discussed with
Anticipated Discharge: Within 24 hours
Subjective/Interval History
-
Date of Service: August 13, 2024
pain controlled
seen eating breakfast
denies chest pain or shortness of breath
Objective Data
-
Labs:
Laboratory Results
08/13/24 08/13/24 08/13/24
01:21 07:26 07:26
WBC 10.9 H
Hgb 8.1 L
Hct 25.6 L
Plt Count 226 D
PT Pending
INR Pending
APTT 126.0 H Pending Pending
Sodium 137
Potassium 3.2 L
Chloride 99
Carbon Dioxide 31 H
BUN 16
Creatinine 0.6
Glucose 95
Calcium 8.5
Total Bilirubin 2.5 H
AST 24
ALT 16
Alkaline Phosphatase 67
Vital Signs:
Vital Signs
Temp Pulse Resp BP Pulse Ox
98.3 F 103 18 132/71 99
08/13/24 08:18 08/13/24 08:18 08/13/24 08:18 08/13/24 08:18 08/13/24 08:50
I&O
08/12/24 08/13/24 08/14/24
06:59 06:59 06:59
Intake Total 1030 / 1030 720 / 720
Output Total 2000 / 2000 1200 / 1200
Balance -970 / -970 -480 / -480
Review of Systems
-
History Source: Patient
All other systems: Reviewed and negative
Physical Exam
-
General: No Apparent Distress
HEENT: PERRLA
Respiratory: Rales
Cardiac: Regular Rhythm and S1/S2; Negative JVD
GI: Soft and Nontender
Skin: Warm and Dry; Negative Rash
Neuro: AO x 3
Psych: Calm
Data Reviewed
-
Diagnostic Radiology: Report Reviewed by me
Labs: Labs Reviewed by me
[2024-08-13 09:25] LABS: APTT 73.1 Sec (23.4-35.0); INR 2.01; PT 23.3 Sec (11.4-14.6)
--- NOTE | 2024-08-13 09:48 | W.DS.TRANS ---
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
-
Discharge Instructions:
Sleep Apnea Risk Intermediate
Discharge Diagnosis/Procedures left hip fracture status post surgery 08/08/24
Diet Regular
Activity As tolerated
Driving Restrictions No driving
Bathing Restrictions None
Blood Work BMP and INR in 2 days
Other Services PT,OT
Instructions:
Stand-Alone Forms:
Changes to Home Medications: Yes
Discharge Medications:
DC Medications w/original date entered in [email or web address]
atorvastatin 80 mg tablet 40 mg PO DAILY@1700 High Cholesterol 10/18/17
carvedilol 6.25 mg tablet 6.25 mg PO BID@0800,1700 Heart Failure 10/18/17
cholecalciferol (vitamin D3) 25 mcg (1,000 unit) tablet 1,000 units PO DAILY Supplement 10/18/17
Probiotic 250 mg PO DAILY Supplement 10/13/23
lisinopril 2.5 mg tablet 2.5 mg PO DAILY Blood Pressure 10/13/23
warfarin 2 mg tablet 2 mg PO QPM Blood Clot Prevention/Tx 11/14/23
furosemide 40 mg tablet 40 mg PO DAILY #30 tabs 11/20/23
ascorbic acid (vitamin C) 1,000 mg tablet (Vitamin C) 1,000 mg PO DAILY Supplement 08/06/24
biotin 1,000 mcg chewable tablet 1,000 mcg PO QPM Supplement 08/06/24
cetirizine 10 mg tablet (Zyrtec) 10 mg PO DAILY PRN Allergies 08/06/24
ferrous sulfate 325 mg (65 mg iron) tablet 325 mg PO DAILY Supplement 08/06/24
acetaminophen 500 mg tablet (Tylenol Extra Strength) 1,000 mg (2 x 500 mg) PO TID #12 tabs 08/13/24
docusate sodium 100 mg capsule 100 mg PO BID #14 caps 08/13/24
oxycodone 5 mg tablet 5 mg PO Q4HPRN PRN moderate/severe pain #15 tabs 08/13/24
Home Medication Changes
addition of oxy PRN
colace BID
standing Tylenol over next several days
Pending Results: No
--- NOTE | 2024-08-13 10:26 | PTCARENOTE ---
Pt to be discharged today to [facility] today at 1300 with Acute Care. Heparin gtt D/C'd.
[2024-08-13 10:45] VITALS: BP 97/55; PULSE 104; O2SAT 97
[2024-08-13 10:55] VITALS: BP 97/55; PULSE 101; O2SAT 96
--- NOTE | 2024-08-13 11:54 | PTCARENOTE ---
Report called to SAQIB Garza at [facility]. Instructed to call back at 1850 with any questions. Transport set to pickup pt at 1300.
[2024-08-13 12:00] VITALS: BP 123/54
[2024-08-13] MEDS: KCL 40 MEQ PO (12:03)
--- NOTE | 2024-08-13 12:42 | W.DCSUMMARY ---
Discharge Summary
Discharge Data
Date of Admission: 08/06/24
Date of Discharge: 08/13/24
-
Pending Results: No
Hospital Course
Discharging Physician : Dr. Paola Gill
Disposition : SNF
Primary care physician : Dr. Mike Sparks
Principal Discharge diagnosis : Left Hip Fracture
Chronic Discharge diagnosis :
Hospital Course :
Ms. Jalyn Faustin is a 83 yo woman with hx permanent atrial fibrillation, prior CVA, essential HTN who presents to the ER with left hip pain after falling at home found to have a left hip fracture. She was admitted to medicine with Orthopedics
consulting and Cardiology consulting for clearance. Given history of CVA in setting of coumadin reversal for appendectomy (2016) she was bridged with IV heparin. Once INR acceptable, she underwent surgery with placement of long cephalomedullary
nail on 08/08/24. Post-op course complicated by acute blood loss anemia and she required 2 units PRBC. Hg remained stable prior to discharge. She completed heparin bridge to therapeutic INR post-op and is discharged on her [employer] Coumadin dosing with
repeat INR in 2 days.
She will follow up with Dr. Philip in 2 weeks for repeat evaluation with planned removal of bethanie.
Patient is discharged to SNF.
Time spent on discharge was 35 minutes.
Important imaging findings :
08/06/24
IMPRESSION:
Comminuted displaced intertrochanteric proximal left femur fracture with varus angulation.
No intra-articular extension or dislocation.
Partially visualized right hip arthroplasty appears grossly intact. Mild to moderate degenerative changes of the pubis symphysis, bilateral sacroiliac joints and partially visualized lower lumbar spine. Vascular calcifications.
Procedure findings :
08/08/24
Operative Indications:
Left peritrochanteric femur fracture with subtrochanteric extension
Implants:
10 mm x 380 mm gamma nail, 100 mm cephalomedullary screw, 42.5 mm, 45 mm x 5 mm distal interlocking screws
Procedure and Technique:
Insertion long cephalomedullary nail
Discharge Plan
-
Patient Disposition: Fpc/SNF
Discharge Diagnosis/Procedures: left hip fracture status post surgery 08/08/24
Condition: Fair
Diet: Regular
Activity: As tolerated
Driving Restrictions: No driving
Bathing Restrictions: None
Blood Work: BMP and INR in 2 days
Other Services: PT and OT
Referrals:
Mike Sparks MD [Family Provider] - in less than 1 week
Jass Philip MD [Active] - in two weeks (follow up for repeat evaluation and removal of bethanie)
Additional Discharge Medication Instructions: Take standing Tylenol 1G 3x/day over the next 3-4 days then as needed
Take oxycodone 5mg as needed for moderate/severe pain
You are prescribed colace to help with constipation, hold for loose stools
Prescriptions:
New
docusate sodium 100 mg Capsule
100 mg PO BID Qty: 14 0RF
acetaminophen [Tylenol Extra Strength] 500 mg Tablet
1,000 mg PO TID Qty: 12 0RF
oxycodone 5 mg Tablet
5 mg PO Q4HPRN PRN (Reason: moderate/severe pain) Qty: 15 0RF
Continued
carvedilol 6.25 MG tablet
6.25 mg PO BID@0800,1700
cholecalciferol (vitamin D3) 1,000 UNITS tablet
1,000 units PO DAILY
atorvastatin 80 MG tablet
40 mg PO DAILY@1700
lisinopril 2.5 mg tablet
2.5 mg PO DAILY
Probiotic
250 mg PO DAILY
warfarin 2 mg Tablet
2 mg PO QPM
furosemide 40 mg Tablet
40 mg PO DAILY Qty: 30 0RF
ascorbic acid (vitamin C) [Vitamin C] 1,000 mg Tablet
1,000 mg PO DAILY
cetirizine [Zyrtec] 10 mg Tablet
10 mg PO DAILY PRN (Reason: Allergies)
ferrous sulfate 325 mg (65 mg iron) Tablet
325 mg PO DAILY
biotin 1,000 mcg Tablet,Chewable
1,000 mcg PO QPM
Discharge Orders:
Discharge Patient (As Directed); Ordered 08/13/24
Ordered By: Paola Gill
Discharge Date and Time
Print Language: GREEK
[2024-08-13] MEDS: ROXICODONE 5 MG PO (12:47)
== END 2024-08-13 13:19 | DRG 481 ==
LOC: 2 NORTH 03:51
PROVIDERS: Clinical Nurse Specialist Family Health; Hospitalist; Internal Medicine; ADMITTING PHYSICIAN Hospitalist; ATTENDING PHYSICIAN Student in an Organized Health Care Education/Training Program; CONSULT PHYSICIAN Orthopaedic Surgery; EMERGENCY PHYSICIAN Student in an Organized Health Care Education/Training Program; FAMILY PHYSICIAN Family Medicine; OTHER PHYSICIAN Internal Medicine Cardiovascular Disease
PROC: 0QS936Z Reposition Left Femoral Shaft with Intramedullary Internal Fixation Device, Percutaneous Approach (ICD-10-PCS; 2024-08-08)
PROC: 30233N1 Transfusion of Nonautologous Red Blood Cells into Peripheral Vein, Percutaneous Approach (ICD-10-PCS; 2024-08-10)
DX: S72.142A Displaced intertrochanteric fracture of left femur, initial encounter for closed fracture (principal); D62 Acute posthemorrhagic anemia; I48.21 Permanent atrial fibrillation; I50.32 Chronic diastolic (congestive) heart failure; I11.0 Hypertensive heart disease with heart failure; E78.00 Pure hypercholesterolemia, unspecified; H26.9 Unspecified cataract; I27.20 Pulmonary hypertension, unspecified; K21.9 Gastro-esophageal reflux disease without esophagitis; R79.1 Abnormal coagulation profile; I25.10 Atherosclerotic heart disease of native coronary artery without angina pectoris; W18.39XA Other fall on same level, initial encounter; Z96.641 Presence of right artificial hip joint; Z91.040 Latex allergy status; Z88.2 Allergy status to sulfonamides; Z79.01 Long term (current) use of anticoagulants; Z79.899 Other long term (current) drug therapy; Z86.73 Personal history of transient ischemic attack (TIA), and cerebral infarction without residual deficits
CPT/HCPCS: 73502; 73552; 76000; 80048; 80053; 83880; 85025; 85027; 85610; 85730; 86850; 86900; 86901; 86920; 93005; 97110; 97116; 97163; 97167; 97530; 97535; 99285; C1713; C1769; P9016

== ENCOUNTER → 2025-01-06 13:48 | Outpatient (REF) | payer MEDICARE, SELFPAY | LOC: RAD 13:48 | PROVIDERS: ATTENDING PHYSICIAN Surgery Vascular Surgery | DX: I73.9 Peripheral vascular disease, unspecified (principal) | CPT/HCPCS: 93922; 93925 ==

== ENCOUNTER → 2025-01-19 09:15 | Outpatient (REF) | payer MEDICARE, SELFPAY | LOC: HWRAD 09:15 | PROVIDERS: ATTENDING PHYSICIAN Physician Assistant; FAMILY PHYSICIAN Family Medicine; REFERRING PHYSICIAN Internal Medicine | DX: M81.0 Age-related osteoporosis without current pathological fracture (principal) | CPT/HCPCS: 77080 ==